=== PATIENT | female | born 1965 | race Two or more races ===

== ENCOUNTER → 2019-11-30 09:26 | Outpatient (BNVA) | payer OTHER, SELFPAY | PROVIDERS: PCP Internal Medicine; Visit Provider Student in an Organized Health Care Education/Training Program | DX: M79.7 Fibromyalgia (principal); M67.472 Ganglion, left ankle and foot; Z79.899 Other long term (current) drug therapy | CPT/HCPCS: 99213 ==

== ENCOUNTER 2020-08-07 10:06 | Outpatient (REF) | payer OTHER, SELFPAY ==
[2020-08-07 11:02] LABS: MANUAL DIFF FLAG NO
[2020-08-07 11:09] LABS: Basophils Percent Auto 0.2 % (0-2); Eosinophils Absolute Auto 0.2 X10*3/uL (0.0-0.4); Hematocrit 39.5 % (37-47); Hemoglobin 13.2 g/dl (12.0-16.0); Imm Gran Abs Auto 0.02 X10*3/uL (0.00-0.03); Imm Gran Pct Auto 0.4 % (0.0-0.4); Lymphocytes Percent Auto 20.1 % (20-40); Mean Corpuscular HGB Conc 33.4 g/dl (31.0-35.0); Mean Corpuscular Hemoglobin 29.9 pg (27.0-33.0); Mean Corpuscular Volume 89.4 fL (80-98); Mean Platelet Volume 12.2 fL (9.4-12.3); Monocytes Absolute Auto 0.4 X10*3/uL (0.1-1.2); Monocytes Percent Auto 8.9 % (2-11); Neutrophils Absolute Auto 3.2 X10*3/uL (2.0-8.3); Neutrophils Percent Auto 65.4 % (45-73); Platelet Count 207 X10*3/uL (160-400); Red Blood Count 4.42 X10*6/uL (4.20-5.50); White Blood Count 4.8 X10*3/uL (4.8-10.8)
[2020-08-07 11:26] LABS: Glucose Urine UA NEG (NEG); Leukocyte Esterase Urine NEG (NEG); Nitrite Urine NEG (NEG); Urine Blood NEG (NEG); Urine Ketones NEG (NEG); Urine Protein NEG (NEG-TRACE)
[2020-08-07 11:29] LABS: Appearance Urine CLEAR; Color Urine YELLOW
[2020-08-07 11:45] LABS: Alanine Aminotransferase 17 U/L (0-31); Albumin Level 4.4 g/dL (3.5-5.0); Alkaline Phosphatase 52 U/L (39-117); Anion Gap 8 (12-20); Aspartate Amino Transferase 17 U/L (5-31); Bilirubin Total 0.8 mg/dL (0.0-1.0); Blood Urea Nitrogen 14 mg/dL (9-16); Calcium 9.9 mg/dL (8.4-10.2); Carbon Dioxide 31 mmol/L (22-29); Chloride 106 mmol/L (96-108); Cholesterol 191 mg/dL; Estimated Glomerular Filt Rate > 60; Glucose Fasting 93 mg/dL (60-99); HDL Cholesterol 45 mg/dL; LDL Cholesterol Calculated 128 mg/dl; Potassium 4.3 mmol/L (3.3-5.1); Sodium 141 mmol/L (135-145); Total Protein 6.8 g/dL (6.5-8.0); Triglycerides 94 mg/dL
[2020-08-07 11:49] LABS: TSH reflex Free T4 2.94 uIU/mL (0.32-4.0); Vitamin D 25-OH Total 56.5 ng/mL (>30)
== END 2020-08-07 10:07 | disposition home or self-care (01) ==
LOC: HO.LAB 10:06
PROVIDERS: PCP Internal Medicine; Visit Provider Internal Medicine
DX: M79.7 Fibromyalgia (principal); E78.00 Pure hypercholesterolemia, unspecified; E66.9 Obesity, unspecified; M51.36 Other intervertebral disc degeneration, lumbar region; E55.9 Vitamin D deficiency, unspecified
CPT/HCPCS: 36415; 80053; 80061; 81003; 82306; 84443; 85025

== ENCOUNTER 2020-11-05 12:22 | Outpatient (REF) | payer OTHER, SELFPAY ==
--- NOTE | ~2020-11-05 | XR_ITS ---
EXAMINATION: XR HAND, LEFT CLINICAL INFORMATION: Osteoarthritis COMPARISON: Previous x-ray November 2018 TECHNIQUE: PA, lateral, and oblique views of the left hand. FINDINGS: Bone alignment is normal. No fracture or dislocation is seen. There is arthritis at the first LONGTERM joint and second and fourth DIP joints with joint space narrowing and osteophyte formation. Soft tissues are unremarkable. XR/XR hand LT min 3V IMPRESSION: Arthritis of the first LONGTERM and DIP joints.
== END 2020-11-05 12:23 | disposition home or self-care (01) ==
LOC: HO.XRAY 12:22
PROVIDERS: PCP Internal Medicine; Referring Provider Internal Medicine; Visit Provider Nurse Practitioner Family
DX: M79.642 Pain in left hand (principal); M79.7 Fibromyalgia; M19.90 Unspecified osteoarthritis, unspecified site
CPT/HCPCS: 73130; 99212

== ENCOUNTER 2020-11-26 09:53 | Outpatient (REF) | payer OTHER, SELFPAY ==
[2020-11-26 10:46] LABS: Basophils Percent Auto 0.2 % (0-2); Eosinophils Absolute Auto 0.2 X10*3/uL (0.0-0.4); Hematocrit 38.9 % (37-47); Hemoglobin 13.3 g/dl (12.0-16.0); Imm Gran Abs Auto 0.01 X10*3/uL (0.00-0.03); Imm Gran Pct Auto 0.2 % (0.0-0.4); Lymphocytes Absolute Auto 0.8 X10*3/uL (1.2-4.9); Lymphocytes Percent Auto 17.9 % (20-40); MANUAL DIFF FLAG NO; Mean Corpuscular HGB Conc 34.2 g/dl (31.0-35.0); Mean Corpuscular Hemoglobin 30.5 pg (27.0-33.0); Mean Corpuscular Volume 89.2 fL (80-98); Mean Platelet Volume 12.4 fL (9.4-12.3); Monocytes Absolute Auto 0.4 X10*3/uL (0.1-1.2); Monocytes Percent Auto 9.6 % (2-11); Neutrophils Percent Auto 68.1 % (45-73); Platelet Count 183 X10*3/uL (160-400); Red Blood Count 4.36 X10*6/uL (4.20-5.50); Red Cell Distribution Width 12.1 % (11.0-16.0); White Blood Count 4.5 X10*3/uL (4.8-10.8)
[2020-11-26 11:36] LABS: Erythrocyte Sedimentation Rate 3 MM/HR (0-20)
[2020-11-26 11:39] LABS: Appearance Urine HAZY; Color Urine YELLOW; Glucose Urine UA NEG (NEG); Leukocyte Esterase Urine NEG (NEG); Nitrite Urine NEG (NEG); Urine Blood NEG (NEG); Urine Ketones NEG (NEG); Urine Protein NEG (NEG-TRACE)
[2020-11-26 13:28] LABS: Alanine Aminotransferase 23 U/L (0-31); Albumin Level 4.3 g/dL (3.5-5.0); Alkaline Phosphatase 54 U/L (39-117); Anion Gap 12 (12-20); Aspartate Amino Transferase 19 U/L (5-31); Bilirubin Total 0.8 mg/dL (0.0-1.0); Blood Urea Nitrogen 13 mg/dL (9-16); Calcium 9.6 mg/dL (8.4-10.2); Carbon Dioxide 27 mmol/L (22-29); Chloride 105 mmol/L (96-108); Cholesterol 149 mg/dL; Estimated Glomerular Filt Rate > 60; Glucose Fasting 95 mg/dL (60-99); HDL Cholesterol 48 mg/dL; LDL Cholesterol Calculated 85 mg/dl; Potassium 4.3 mmol/L (3.3-5.1); Sodium 140 mmol/L (135-145); Total Protein 6.7 g/dL (6.5-8.0); Triglycerides 81 mg/dL
[2020-11-26 13:49] LABS: TSH reflex Free T4 5.09 uIU/mL (0.32-4.0); Vitamin D 25-OH Total 61.2 ng/mL (>30)
[2020-11-26 14:28] LABS: Free T4 (Free Thyroxine) 0.75 ng/dL (0.71-1.85)
== END 2020-11-26 09:54 | disposition home or self-care (01) ==
LOC: HO.LAB 09:53
PROVIDERS: PCP Internal Medicine; Visit Provider Internal Medicine
DX: M79.7 Fibromyalgia (principal); E55.9 Vitamin D deficiency, unspecified; E66.9 Obesity, unspecified; M19.91 Primary osteoarthritis, unspecified site; M51.36 Other intervertebral disc degeneration, lumbar region; E78.00 Pure hypercholesterolemia, unspecified
CPT/HCPCS: 36415; 80053; 80061; 81003; 82306; 84439; 84443; 85025; 85652

== ENCOUNTER → 2020-11-28 09:08 | Outpatient (BNVA) | payer OTHER, SELFPAY | PROVIDERS: PCP Internal Medicine; Visit Provider Physician Assistant | DX: M18.12 Unilateral primary osteoarthritis of first carpometacarpal joint, left hand (principal) | CPT/HCPCS: 20600; 99202; J1020 ==

== ENCOUNTER 2021-05-22 10:23 | Outpatient (REF) | payer OTHER, SELFPAY ==
[2021-05-22 10:48] LABS: MANUAL DIFF FLAG NO
[2021-05-22 10:58] LABS: Basophils Percent Auto 0.2 % (0-2); Eosinophils Absolute Auto 0.2 X10*3/uL (0.0-0.4); Eosinophils Percent Auto 3.4 % (0-4); Hematocrit 40.4 % (37.0-47.0); Hemoglobin 13.3 g/dl (12.0-16.0); Imm Gran Abs Auto 0.01 X10*3/uL (0.00-0.03); Imm Gran Pct Auto 0.2 % (0.0-0.4); Lymphocytes Absolute Auto 0.8 X10*3/uL (1.2-4.9); Lymphocytes Percent Auto 18.8 % (20-40); Mean Corpuscular HGB Conc 32.9 g/dl (31.0-35.0); Mean Corpuscular Hemoglobin 29.8 pg (27.0-33.0); Mean Corpuscular Volume 90.6 fL (80.0-98.0); Mean Platelet Volume 11.9 fL (9.4-12.3); Monocytes Absolute Auto 0.5 X10*3/uL (0.1-1.2); Monocytes Percent Auto 10.6 % (2-11); Neutrophils Absolute Auto 2.9 x10*3/uL (2.0-8.3); Neutrophils Percent Auto 66.8 % (45-73); Platelet Count 196 X10*3/uL (160-400); Red Blood Count 4.46 X10*6/uL (4.20-5.50); Red Cell Distribution Width 11.9 % (11.0-16.0); White Blood Count 4.4 X10*3/uL (4.8-10.8)
[2021-05-22 11:39] LABS: Estimated Average Glucose 117 mg/dL; Hemoglobin A1c % 5.7 %
[2021-05-22 11:42] LABS: Erythrocyte Sedimentation Rate 6 MM/HR (0-20)
[2021-05-22 12:16] LABS: TSH reflex Free T4 2.93 uIU/mL (0.32-4.0); Vitamin D 25-OH Total 61.2 ng/mL (>30)
[2021-05-22 12:29] LABS: Alanine Aminotransferase 22 U/L (0-31); Albumin Level 4.3 g/dL (3.5-5.0); Alkaline Phosphatase 52 U/L (39-117); Anion Gap 10 (12-20); Aspartate Amino Transferase 17 U/L (5-31); Bilirubin Total 0.9 mg/dL (0.0-1.0); Blood Urea Nitrogen 11 mg/dL (9-16); Calcium 9.8 mg/dL (8.4-10.2); Carbon Dioxide 31 mmol/L (22-29); Chloride 106 mmol/L (96-108); Cholesterol 143 mg/dL; Estimated Glomerular Filt Rate > 60; Glucose Fasting 103 mg/dL (60-99); HDL Cholesterol 44 mg/dL; LDL Cholesterol Calculated 84 mg/dl; Potassium 4.6 mmol/L (3.3-5.1); Sodium 142 mmol/L (135-145); Total Protein 6.7 g/dL (6.5-8.0); Triglycerides 79 mg/dL
[2021-05-22 12:35] LABS: Appearance Urine CLEAR; Color Urine YELLOW; Glucose Urine UA NEG (NEG); Leukocyte Esterase Urine NEG (NEG); Nitrite Urine NEG (NEG); PH 8.5 (5.0-8.0); Specific Gravity - Urine 1.015 (1.005-1.025); Urine Blood NEG (NEG); Urine Ketones NEG (NEG); Urine Protein NEG (NEG-TRACE)
== END 2021-05-22 10:24 | disposition home or self-care (01) ==
LOC: HO.LAB 10:23
PROVIDERS: PCP Internal Medicine; Visit Provider Internal Medicine
DX: I10 Essential (primary) hypertension (principal); E78.00 Pure hypercholesterolemia, unspecified; M79.7 Fibromyalgia; R73.01 Impaired fasting glucose; E55.9 Vitamin D deficiency, unspecified
CPT/HCPCS: 36415; 80053; 80061; 81003; 82306; 83036; 84443; 85025; 85652

== ENCOUNTER 2021-08-28 14:42 | Outpatient (REF) | payer OTHER, SELFPAY ==
--- NOTE | ~2021-08-28 | XR_ITS ---
EXAMINATION: XR KNEE, LEFT CLINICAL INFORMATION: M25.562 - Pain in left knee COMPARISON: Radiographs left knee 10/22/2013. TECHNIQUE: Four views of the left knee. FINDINGS: No fracture, dislocation, or suprapatellar effusion. Hoffa's fat pad appears normal. No destructive process or periostitis. There is interval osteophyte medial femoral condyle and medial tibial plateau. Trace mineralization is present in region of proximal medial collateral ligament suggesting remote injury. There is no interval joint compartment narrowing or erosive change or chondrocalcinosis. Again, there is borderline narrowing medial compartment. No lateralization or tilting patella. There is spurring at the quadriceps insertion patella and mild spurring origin patellar tendon. XR/XR knee LT 4V IMPRESSION: -Osteophytes medial femoral condyle and medial tibial plateau. -Borderline narrowing medial compartment. No effusion. -Trace mineralization at proximal MCL likely related to remote injury. -Spurring quadriceps insertion patella and origin patellar tendon.
[2021-08-28 14:52] LABS: MANUAL DIFF FLAG NO
[2021-08-28 15:12] LABS: Basophils Percent Auto 0.1 % (0-2); Eosinophils Absolute Auto 0.2 X10*3/uL (0.0-0.4); Eosinophils Percent Auto 2.7 % (0-4); Hematocrit 39.9 % (37.0-47.0); Hemoglobin 13.7 g/dl (12.0-16.0); Imm Gran Abs Auto 0.02 X10*3/uL (0.00-0.03); Imm Gran Pct Auto 0.3 % (0.0-0.4); Lymphocytes Absolute Auto 1.1 X10*3/uL (1.2-4.9); Lymphocytes Percent Auto 15.4 % (20-40); Mean Corpuscular HGB Conc 34.3 g/dl (31.0-35.0); Mean Corpuscular Volume 87.3 fL (80.0-98.0); Mean Platelet Volume 11.7 fL (9.4-12.3); Monocytes Absolute Auto 0.6 X10*3/uL (0.1-1.2); Monocytes Percent Auto 7.8 % (2-11); Neutrophils Absolute Auto 5.4 x10*3/uL (2.0-8.3); Neutrophils Percent Auto 73.7 % (45-73); Platelet Count 212 X10*3/uL (160-400); Red Blood Count 4.57 X10*6/uL (4.20-5.50); Red Cell Distribution Width 12.2 % (11.0-16.0); White Blood Count 7.3 X10*3/uL (4.8-10.8)
[2021-08-28 15:49] LABS: Alanine Aminotransferase 20 U/L (0-31); Albumin Level 4.7 g/dL (3.5-5.0); Alkaline Phosphatase 61 U/L (39-117); Anion Gap 13 (12-20); Aspartate Amino Transferase 18 U/L (5-31); Bilirubin Total 0.7 mg/dL (0.0-1.0); Blood Urea Nitrogen 16 mg/dL (9-16); C Reactive Protein 0.36 mg/dL (< or = 0.50); Calcium 10.2 mg/dL (8.4-10.2); Carbon Dioxide 26 mmol/L (22-29); Chloride 110 mmol/L (96-108); Cholesterol 146 mg/dL; Estimated Glomerular Filt Rate > 60; Glucose Fasting 100 mg/dL (60-99); HDL Cholesterol 44 mg/dL; LDL Cholesterol Calculated 84 mg/dl; Potassium 4.3 mmol/L (3.3-5.1); Rheumatoid Factor 18.8 IU/mL (<15.0); Sodium 145 mmol/L (135-145); Total Protein 7.3 g/dL (6.5-8.0); Triglycerides 94 mg/dL
[2021-08-28 15:53] LABS: Erythrocyte Sedimentation Rate 6 MM/HR (0-20)
[2021-08-28 16:05] LABS: TSH reflex Free T4 2.57 uIU/mL (0.32-4.0)
[2021-08-28 16:10] LABS: Appearance Urine CLEAR; Color Urine YELLOW; Glucose Urine UA NEG (NEG); Leukocyte Esterase Urine NEG (NEG); Nitrite Urine NEG (NEG); Specific Gravity - Urine 1.025 (1.005-1.025); UACC Culture Trigger NO; Urine Blood TRACE (NEG); Urine Ketones NEG (NEG); Urine Protein NEG (NEG-TRACE)
[2021-08-28 16:19] LABS: Bacteria Urine TRACE /LPF; Calcium Oxalate Crystals Urine TRACE /LPF; Mucus Urine 2+ /LPF; Squamous Epithelial Cell Urine 1+ /LPF; WBC Urine 0-2 /HPF (0-4)
[2021-09-01 08:51] LABS: Anti Nuclear Antibody Screen NEGATIVE (NEGATIVE)
[2021-09-04 14:06] LABS: Cyclic Citrullinated Peptide <16 UNITS
== END 2021-08-28 14:43 | disposition home or self-care (01) ==
LOC: HO.XRAY 14:42
PROVIDERS: PCP Internal Medicine; Visit Provider Internal Medicine
DX: M25.562 Pain in left knee (principal); M25.50 Pain in unspecified joint; E78.00 Pure hypercholesterolemia, unspecified
CPT/HCPCS: 36415; 73564; 80053; 80061; 81001; 84443; 84550; 85025; 85652; 86038; 86039; 86140; 86200; 86431

== ENCOUNTER 2021-12-18 09:39 | Outpatient (REF) | payer OTHER, SELFPAY ==
--- NOTE | ~2021-12-18 | XR_ITS ---
EXAMINATION: XR HAND, LEFT CLINICAL INFORMATION: Pain in left hand at first metacarpal COMPARISON: None TECHNIQUE: PA, lateral, and oblique views of the left hand. FINDINGS: No fracture or dislocation. Severe joint space narrowing, sclerosis, and osteophytosis at the first carpometacarpal joint. Moderate osteoarthritis of the second distal interphalangeal joint. XR/XR hand LT min 3V IMPRESSION: Severe first carpometacarpal osteoarthritis. Moderate osteoarthritis of the second distal interphalangeal joint.
== END 2021-12-18 09:40 | disposition home or self-care (01) ==
LOC: HO.XRAY 09:39
PROVIDERS: PCP Internal Medicine; Visit Provider Nurse Practitioner Family
DX: M18.12 Unilateral primary osteoarthritis of first carpometacarpal joint, left hand (principal); M79.7 Fibromyalgia; Z79.899 Other long term (current) drug therapy
CPT/HCPCS: 73130; 99212

== ENCOUNTER → 2022-01-13 10:54 | Outpatient (BNVA) | payer OTHER, SELFPAY | PROVIDERS: PCP Internal Medicine; Visit Provider Physician Assistant | DX: M18.12 Unilateral primary osteoarthritis of first carpometacarpal joint, left hand (principal) | CPT/HCPCS: 99212 ==

== ENCOUNTER → 2022-02-09 13:31 | Outpatient (BNVA) | payer OTHER, SELFPAY | PROVIDERS: PCP Internal Medicine; Visit Provider Orthopaedic Surgery | DX: M18.12 Unilateral primary osteoarthritis of first carpometacarpal joint, left hand (principal) | CPT/HCPCS: 20600; 99212; J1020 ==

== ENCOUNTER 2022-03-08 10:38 | Outpatient (REF) | payer OTHER, SELFPAY ==
[2022-03-08 10:57] LABS: MANUAL DIFF FLAG NO
[2022-03-08 11:54] LABS: Basophils Percent Auto 0.2 % (0-2); Eosinophils Absolute Auto 0.2 X10*3/uL (0.0-0.4); Eosinophils Percent Auto 3.3 % (0-4); Hematocrit 40.2 % (37.0-47.0); Hemoglobin 13.5 g/dl (12.0-16.0); Imm Gran Abs Auto 0.01 X10*3/uL (0.00-0.03); Imm Gran Pct Auto 0.2 % (0.0-0.4); Lymphocytes Absolute Auto 0.8 X10*3/uL (1.2-4.9); Lymphocytes Percent Auto 18.3 % (20-40); Mean Corpuscular HGB Conc 33.6 g/dl (31.0-35.0); Mean Corpuscular Hemoglobin 30.3 pg (27.0-33.0); Mean Corpuscular Volume 90.1 fL (80.0-98.0); Mean Platelet Volume 12.6 fL (9.4-12.3); Monocytes Absolute Auto 0.4 X10*3/uL (0.1-1.2); Monocytes Percent Auto 8.9 % (2-11); Neutrophils Absolute Auto 3.1 x10*3/uL (2.0-8.3); Neutrophils Percent Auto 69.1 % (45-73); Platelet Count 217 X10*3/uL (160-400); Red Blood Count 4.46 X10*6/uL (4.20-5.50); Red Cell Distribution Width 11.8 % (11.0-16.0); White Blood Count 4.5 X10*3/uL (4.8-10.8)
[2022-03-08 12:28] LABS: Alanine Aminotransferase 24 U/L (0-31); Albumin Level 4.5 g/dL (3.5-5.0); Alkaline Phosphatase 56 U/L (39-117); Anion Gap 12 (12-20); Aspartate Amino Transferase 20 U/L (5-31); Bilirubin Total 0.8 mg/dL (0.0-1.0); Blood Urea Nitrogen 15 mg/dL (9-16); Calcium 10.4 mg/dL (8.4-10.2); Carbon Dioxide 29 mmol/L (22-29); Chloride 105 mmol/L (96-108); Cholesterol 133 mg/dL; Estimated Glomerular Filt Rate > 60; Glucose Fasting 89 mg/dL (60-99); HDL Cholesterol 45 mg/dL; LDL Cholesterol Calculated 77 mg/dl; Potassium 4.6 mmol/L (3.3-5.1); Sodium 141 mmol/L (135-145); Total Protein 6.9 g/dL (6.5-8.0); Triglycerides 56 mg/dL
[2022-03-08 12:44] LABS: TSH reflex Free T4 3.09 uIU/mL (0.32-4.0); Vitamin D 25-OH Total 38.6 ng/mL (>30)
== END 2022-03-08 10:39 | disposition home or self-care (01) ==
LOC: HO.LAB 10:38
PROVIDERS: PCP Internal Medicine; Visit Provider Internal Medicine
DX: E78.00 Pure hypercholesterolemia, unspecified (principal); M79.7 Fibromyalgia; E55.9 Vitamin D deficiency, unspecified
CPT/HCPCS: 36415; 80053; 80061; 82306; 84443; 85025

== ENCOUNTER 2022-08-30 08:28 | Outpatient (REF) | payer OTHER, SELFPAY ==
[2022-08-30 08:38] LABS: MANUAL DIFF FLAG NO
[2022-08-30 09:07] LABS: Basophils Percent Auto 0.4 % (0-2); Eosinophils Absolute Auto 0.3 X10*3/uL (0.0-0.4); Eosinophils Percent Auto 4.4 % (0-4); Hematocrit 41.4 % (37.0-47.0); Hemoglobin 13.9 g/dl (12.0-16.0); Imm Gran Abs Auto 0.02 X10*3/uL (0.00-0.03); Imm Gran Pct Auto 0.4 % (0.0-0.4); Lymphocytes Percent Auto 17.8 % (20-40); Mean Corpuscular HGB Conc 33.6 g/dl (31.0-35.0); Mean Corpuscular Hemoglobin 30.3 pg (27.0-33.0); Mean Corpuscular Volume 90.2 fL (80.0-98.0); Mean Platelet Volume 12.2 fL (9.4-12.3); Monocytes Absolute Auto 0.5 X10*3/uL (0.1-1.2); Neutrophils Absolute Auto 3.9 x10*3/uL (2.0-8.3); Platelet Count 225 X10*3/uL (160-400); Red Blood Count 4.59 X10*6/uL (4.20-5.50); Red Cell Distribution Width 12.5 % (11.0-16.0); White Blood Count 5.7 X10*3/uL (4.8-10.8)
== END 2022-08-30 08:29 | disposition home or self-care (01) ==
LOC: HO.LAB 08:28
PROVIDERS: PCP Internal Medicine; Visit Provider Internal Medicine
DX: E78.00 Pure hypercholesterolemia, unspecified (principal); I10 Essential (primary) hypertension
CPT/HCPCS: 36415; 80053; 80061; 85025

== ENCOUNTER 2022-09-23 10:31 | Outpatient (AMB) | payer OTHER, SELFPAY ==
--- NOTE | 2022-09-23 10:34 | MHC.OFFVIS ---
Intake Vital Signs 09/23/22 10:39 Height 5 ft 8 in Weight 242 lb 6 oz BMI 36.8 BP 112/78 Blood Pressure Location Lt brachial Position Sitting Pulse 68 Pulse Source Pulse Oximeter Pulse Oximetry (%) 96 Oxygen Delivery Method Room Air Intake Visit Reasons: INP-Fatigue/Somnolence - Confirmed thru clearwave Intake Note: NPV for Fatigue Superintendent Local Required: Yes Allergies No Known Allergies [No Known Allergies*] Allergy (Verified 09/23/22 10:36) HPI HPI Comments History of Present Illness Details 57 y/o female patient presents for new in-person visit for sleep consultation. Pt reports snoring and gasping arousals and daytime sleepiness. She feels always tired, sleepy and yawing a lot. She can easily falling asleep during conversations. Pt goes to bed at midnight, and sleeps 5-6 hours. She has difficulty falling asleep at night and having frequent arousals. Sleep questionnaire: Have you ever been diagnosed with a sleep disorder? No. Have you ever had a sleep study in the past? No. Have you ever been treated for a sleep disorder? No. Do you take medications for a sleep disorder? No. Do you snore? Yes. Do you wake up gasping at night? Yes. Do you have episodes of apneas? No. If yes, are they witnessed? No. Do you have episodes of nocturnal chest pain or dyspnea? Yes, having palapitation at night. Do you have difficulty initiating sleep? Yes. Do you have difficulty maintaining sleep? Yes. Do you wake up tired? Yes. Do you have headaches upon awakening? Yes, sometimes. Do you wake up with dry mouth or throat? Yes. Do you have GERD? Yes, sometimes. Do you have nocturia? Yes, 4-5 times. Do you have nocturnal leg cramps? Yes. Do you have symptoms of restless legs? Yes. Do you act out your dreams? No. Sleep hygiene questionnaire: What is your usual sleep routine? Usual bedtime is at 12 am; Usual wake up time is at 5-6 am. Do you take naps? No. Is your sleep environment cool, dark, and quiet? Yes. Do you exercise? No. Do you take caffeine or other stimulants? 1 cup of coffee in the morning. Do you use electronics in bed? Yes. What is your work schedule? N/A. Hypersomnolence questionnaire: Do you have daytime tiredness or fatigue? Yes. Do you easily fall asleep when inactive? Yes. Have you ever had episodes of sudden weakness? Have you ever had episodes of sudden weakness associated with strong emotions? PFSH Medical History Fibromyalgia Lumbar degenerative disc disease Obesity (BMI 30-39.9) Osteoarthritis Pure hypercholesterolemia Urinary incontinence Vitamin D deficiency Surgical History H/O LEEP History of tubal ligation Hx of varicose veins Family History Father Medical history unknown Mother Stroke Diabetes Hypertension CVD (cardiovascular disease) Brother Substance abuse Maternal Uncle Throat cancer Social History (Updated 09/23/22 @ 10:39 by Phyllis Bui CMA) Household Members: None Housing: Apartment Are you a primary health care / medical job titles to a significant other at home: No Do you presently have visiting nurse or other home services: No 75 years or older and lives alone: No Alcohol intake: never Patient Tobacco Use Status: Never used Tobacco e-Cigarette/Vaping Use: Never Used Second Hand Smoke Exposure: No service: No Current occupational status: disabled Current occupational exposures/hazards: No Cognitive needs: No Hearing needs: No Vision needs: Yes Review of Systems ENT Reports Normal hearing present Neuro Reports Normal hearing present Physical Exam Vital Signs: Last Vital Signs Pulse 68 09/23/22 10:39 BP 112/78 09/23/22 10:39 Pulse Ox 96 09/23/22 10:39 Oxygen Delivery Method Room Air 09/23/22 10:39 BMI result Body Mass Index 36.8 Const General: cooperative Nutritional Appearance: obese Orientation/consciousness: patient oriented x3 HEENT Throat: Yes other (mallampati grade 4) Neck Neck: Yes full ROM and Yes supple Resp Effort & Inspection: normal respiratory effort and able to speak in complete sentences Neuro General: patient oriented x3 and gait normal Cranial nerves: Yes Bilaterally intact EOM present, Yes Normal facial strength present, Yes Midline tongue present, Yes Symmetric palate elevation present, Yes Normal hearing present, Yes Ability to bilaterally rotate head present and Yes Ability to bilaterally elevate shoulders present Cognition (Neuro): normal cognition Gait exam (Neuro): Normal gait present Motor exam (neuro): 5/5 motor strength present throughout, Pronator motor function not present and no tremor noted Psych Appearance: grossly normal Mental Status: mental status grossly normal Speech and movement: Normal speech and movement present Affect: normal affect Attitude: cooperative Assessment & Plan Assessment & Plan (1) Muscle spasm of both lower legs: Code(s): M62.838 - Other muscle spasm (2) Snoring: Code(s): R06.83 - Snoring (3) Daytime somnolence: Code(s): R40.0 - Somnolence Plan Pt is advised to undergo home sleep study to assess for sleep apnea. Will f/u with pt after study to discuss results and appropriate treatment options. Sleep hygiene education provided. Advised patient to try magnesium 400 mg qHS for legs muscle spasm. Pt to call with any worsening concerns or questions. Orders: Orders RT home sleep study Today R06.83 - Snoring, R40.0 - Somnolence, R53.83 - Other fatigue Medications: New magnesium oxide 400 mg PO DAILY 30 days 30 tabs 3RF Coding Level of Care Code New Pt Level 4 (28179) Diagnoses Muscle spasm of both lower legs M62.838 Snoring R06.83 Daytime somnolence R40.0
[2022-09-23 10:39] VITALS: BP 112/78; PULSE 68; O2SAT 96; BMI 36.8
== END 2022-09-23 11:07 | disposition home or self-care (01) ==
PROVIDERS: Visit Provider Nurse Practitioner Family
DX: M62.838 Other muscle spasm (principal); R06.83 Snoring; R40.0 Somnolence
CPT/HCPCS: 99204

== ENCOUNTER → 2022-09-23 10:31 | Outpatient (BNVA) | payer OTHER, SELFPAY | PROVIDERS: Visit Provider Nurse Practitioner Family | DX: M62.838 Other muscle spasm (principal); R06.83 Snoring; R40.0 Somnolence | CPT/HCPCS: 99202 ==

== ENCOUNTER 2022-10-06 13:36 | Outpatient (AMB) | payer OTHER, SELFPAY ==
[2022-10-06 13:41] VITALS: BP 134/80; PULSE 77; O2SAT 95; BMI 36.5
--- NOTE | 2022-10-06 13:41 | MHC.PC.OV ---
Vital Signs 10/06/22 13:41 Height 5 ft 8 in Weight 240 lb 6 oz BMI 36.5 BP 134/80 Blood Pressure Location Lt brachial Position Sitting Pulse 77 Pulse Source Pulse Oximeter Pulse Oximetry (%) 95 Oxygen Delivery Method Room Air Intake Visit Reasons: hyperlipidemia Chef Passenger Vessel Required: No Accompanied by: Self / Same As Patient Allergies No Known Allergies [No Known Allergies*] Allergy (Verified 10/06/22 14:17) Medication List - Last Reconciled 10/06/22 by Charlie Ty MD atorvastatin 20 mg PO DAILY 90 days calcium citrate-vitamin D3 315 mg-6.25 mcg (250 unit) (Citracal + Vitamin D Maximum) 1 tab PO DAILY cholecalciferol (vitamin D3) 1,250 mcg PO QWEEK clobetasol 0.05% 1 appl topical BID [CONTOUR Memory Foam Leg Pillow As directed] diclofenac sodium 1% (Voltaren Arthritis Pain) 2 grams topical QID PRN 30 days duloxetine 30 mg PO .qhs duloxetine (Cymbalta) 60 mg PO QAM gabapentin 400 mg PO BID ibuprofen 800 mg PO TID PRN [INCONTINENCE PADS Use 4 to 5 pads a day as directed] magnesium oxide 400 mg PO DAILY 30 days polyethylene glycol 3350 (Miralax) 17 grams PO DAILY tizanidine 4 mg PO Q8H PRN Tobacco use date assessed: 10/06/22 Dental Screening Dental Screen Date: 10/06/22 Did you have a dental visit in the last 12 months?: Yes Did you have a dental problem in the last 6 months where you did not have access to dental care?: No Was dental information given to patient?: Patient has dentist HPI hyperlipidemia HPI Details Patient comes in today for her follow up visit States that she feels okay She denies any headaches or dizziness Denies any chest pains, no SOB No nausea/vomiting, no abdominal pain No change in bowel habits noted Still has frequent joint pains and myalgias - states that she has her aches and pains everyday but is able to manage them and that her Rx help keep them from getting unbearable Was seen by sleep medicine last month and states that she is scheduled to have a home sleep study done sometime next month to assess for sleep apnea Adds that she has been having a hard time getting the skin of her heels to clear up - states that the skin over her heels are always very dry and tends to form painful cracks and fissures often, especially in the winter Would like to see a specialist to have them help get her heels to clear up and heal up EFRAÍN Had her follow up labs done last month - to discuss her results [facility] Medical History Fibromyalgia Lumbar degenerative disc disease Obesity (BMI 30-39.9) Osteoarthritis Pure hypercholesterolemia Urinary incontinence Vitamin D deficiency Surgical History H/O LEEP History of tubal ligation Hx of varicose veins Family History Father Medical history unknown Mother Stroke Diabetes Hypertension CVD (cardiovascular disease) Brother Substance abuse Maternal Uncle Throat cancer Social History Household Members: None Housing: Apartment Are you a primary personal caregiver to a significant other at home: No Do you presently have visiting nurse or other home services: No 75 years or older and lives alone: No Alcohol intake: never Patient Tobacco Use Status: Never used Tobacco e-Cigarette/Vaping Use: Never Used Second Hand Smoke Exposure: No service: No Current occupational status: disabled Current occupational exposures/hazards: No Cognitive needs: No Hearing needs: No Vision needs: Yes Questionnaire PHQ-9 Over the last 2 weeks, how often have you been bothered by any of the following problems? 1. Little interest or pleasure in doing things: not at all 2. Feeling down, depressed, or hopeless: not at all 3. Trouble falling or staying asleep, or sleeping too much: not at all 4. Feeling tired or having little energy: not at all 5. Poor appetite or overeating: not at all 6. Feeling bad about yourself - or that you are a failure or have let yourself or your family down: not at all 7. Trouble concentrating on things, such as reading the newspaper or watching television: not at all 8. Moving or speaking so slowly that other people could have noticed. Or the opposite - being so fidgety or restless that you have been moving around a lot more than usual: not at all 9. Thoughts that you would be better off or of hurting yourself in some way: not at all Total score: 0 Depression Screening Interpretation: Negative 11819 - PHQ-9 Billing: Yes Source: Developed by Drs. Dax Armas, Jovita Ozuna, Alex Aceves and colleagues, with an educational roscoe from [employer]. Thrive Questionnaire Date Thrive assessed: 10/06/22 I am a: Patient What is your living situation today?: I have a steady place to live Within the past 12 months, did the food you bought not last and you didn't have the money to get more?: Never true Within the past 12 months, did you worry whether your food would run out before you got money to buy more?: Never true Do you have trouble paying for medicines?: No Do you have trouble getting transportation to medical appointments?: No Do you have trouble paying your heating and electricity bill?: No Do you have trouble taking care of your child, family member or friend?: No Do you have trouble with day-to-day activities such as bathing, preparing meals, shopping, managing finances, etc.?: No Are you currently unemployed and looking for a job?: No Are you interested in more education?: No Please select the resources that you would like help with: None Currently or been in a relationship where the following occur: no concerns reported AUDIT C Alcohol Use Questionnaire (AUDIT-C) 1. How often do you have a drink containing alcohol?: Never 3. How often do you have six or more drinks on one occasion?: Never Total Score: 0 Score Reviewed/Action Taken: Yes CAM-7 AMB Questionnaire CAM-7 Date CAM - 7 assessed: 10/06/22 Feeling nervous, anxious, or on edge: 0 = Not at all Not being able to stop or control worryin = Not at all Worrying too much about different things: 0 = Not at all Trouble relaxin = Not at all Being so restless that it is hard to sit still: 0 = Not at all Becoming easily annoyed or irritable: 0 = Not at all Feeling afraid as if something awful might happen: 0 = Not at all Total CAM-7 score (0-4 normal; 5-9 mild; 10-14 moderate; 15-21 severe): 0 Source: Developed by Drs. Dax Armas, Jovita Ozuna, Alex Aceves and colleagues, with an educational roscoe from [employer]. Review of Systems Const Denies chills, Reports daytime sleepiness, Reports fatigue, Denies fever(s) and Denies headache(s) ENT Denies dysphagia, Denies dizziness, Denies otalgia, Denies headache(s), Denies neck pain, Denies odynophagia and Denies sore throat Card Denies chest pain, Denies palpitations and Denies dyspnea Resp Denies cough and Denies dyspnea GI Denies abdominal pain, Denies constipation, Denies dysphagia, Denies heartburn, Denies diarrhea, Denies nausea, Denies odynophagia and Denies vomiting Reports nocturia, Denies dysuria and Reports urinary incontinence Musc Reports myalgias (recurrent, especially behind both shoulders), Reports arthralgias (on and off involving multiple joints, including left knee), Denies neck pain and Reports stiffness Skin/Breast Details: (+) significantly thickened skin over the heels of both feet, with some painful cracks/fissures at present Neuro Denies dizziness and Denies headache(s) Psych Denies anxiety Endo Reports fatigue and Denies palpitations Ray/Lymph Denies easy bruising Physical exam (Primary Care) Vital Signs: Last Vital Signs Pulse 77 10/06/22 13:41 BP 134/80 10/06/22 13:41 Pulse Ox 95 10/06/22 13:41 Oxygen Delivery Method Room Air 10/06/22 13:41 BMI result Body Mass Index 36.5 Tobacco/Smoking Status: Tobacco use Status Tobacco use date assessed 10/06/22 10/06/22 13:48 Patient Tobacco Use Status Never used Tobacco 10/06/22 13:48 e-Cigarette/Vaping Use Never Used 10/06/22 13:48 PHQ-9: PHQ-9 Score PHQ-9: Total score 0 10/06/22 13:48 Depression Screening Interpretation: Negative Thrive Assessment: Date of Thrive Assessment Date Thrive assessed 10/06/22 10/06/22 13:48 Currently or been in a relationship where the following occur: no concerns reported Const General: no acute distress and alert HENMT Ears: TM's normal bilaterally and EAC's normal Throat: Yes posterior oropharynx normal and Yes tonsils normal (no TP congestion noted) Neck Neck: Yes no lymphadenopathy and Yes tender (over the cervical spine and paraspinal areas bilaterally) Thyroid: Thyroid normal Resp Auscultation: clear to auscultation bilaterally, no rales and no wheezes Cardio Rate: regular rate Rhythm: regular rhythm Heart sounds: no murmurs GI Palpation (GI): Soft to palpation and nontender Auscultation: normal bowel sounds Back/Spine/Pelvis Cervical Spine: cervical muscular tenderness Thoracic/Lumbar Spine: paraspinal muscle tenderness bilaterally (over the cervical and thoracolumbar spine (diffuse)) and lumbar spinal tenderness Skin Other: (+) thickened patch of skin over the heels of both feet, with (+) painful skin fissures / cracks on the heel areas Rashes: no rashes Neuro General: no focal motor deficits Extrem General: Yes no clubbing, cyanosis or edema Right upper extremity: shoulder/upper arm Details: tenderness (diffusely over the scapular area) Left upper extremity: shoulder/upper arm Details: tenderness (diffusely over the scapular areas) Left lower extremity: knee Details: tenderness Results Reviewed Results Reviewed: Laboratory Tests 08/30/22 08/30/22 08:37 08:37 WBC 5.7 Hgb 13.9 Hct 41.4 Plt Count 225 Sodium 143 Potassium 4.1 Creatinine 0.72 Estimated GFR > 60 Fasting Glucose 102 H Calcium 10.3 H AST 21 ALT 29 Triglycerides 83 Cholesterol 148 LDL Cholesterol, Calc 82 HDL Cholesterol 50 Assessment and Plan Assessment & Plan (1) Pure hypercholesterolemia: Code(s): E78.00 - Pure hypercholesterolemia, unspecified Plan: Results of her labs done last month reviewed and discussed with patient Reinforced low-cholesterol diet Continue Atorvastatin 10 mg QD Will recheck her labs in 4 months for follow-up (2) Lumbar degenerative disc disease: Code(s): M51.36 - Other intervertebral disc degeneration, lumbar region Plan: Reinforced activity and weight lifting restrictions Continue Gabapentin 400 mg BID and Tizanidine 4 mg Q 8 hours as needed (3) Polyarthralgia: Code(s): M25.50 - Pain in unspecified joint Plan: Mostly due to osteoarthritis Repeat x-rays of the left knee done in August 2021 confirmed (+) OA changes in her left knee Lab work ups done last year were negative for any inflammatory arthritis or condition Follow up with rheumatology as scheduled (4) Osteoarthritis: Code(s): M19.90 - Unspecified osteoarthritis, unspecified site Qualifiers: Osteoarthritis location: unspecified site Osteoarthritis type: primary Qualified Code(s): M19.91 - Primary osteoarthritis, unspecified site Plan: Continue Ibuprofen 800 mg 3 times a day as needed and Voltaren gel 1% apply 1 to 2 times a day as needed Patient also takes Tylenol 5 mg every 6-8 hours additionally as needed for increased pain (5) Fibromyalgia: Code(s): M79.7 - Fibromyalgia Plan: Patient is encouraged again to stay active and exercise regularly to help manage her fibromyalgia symptoms Continue Duloxetine 60 mg QD; is also on Gabapentin and Tizanidine to help manage her symptoms Follow up with rheumatology as scheduled (6) Daytime somnolence: Code(s): R40.0 - Somnolence Plan: She was referred to and seen by Sleep Medicine last month; is now scheduled for a home sleep study in October 2022 for further evaluation and to help r/o sleep apnea (7) Vitamin D deficiency: Code(s): E55.9 - Vitamin D deficiency, unspecified Plan: Continue Vitamin D2 54002 units once a week (8) Keratoderma of foot, acquired: Code(s): L85.1 - Acquired keratosis [keratoderma] palmaris et plantaris Plan: Will refer her to podiatry for further evaluation and management (9) Urinary incontinence: Code(s): R32 - Unspecified urinary incontinence Qualifiers: Urinary Incontinence type: unspecified incontinence Qualified Code(s): R32 - Unspecified urinary incontinence Plan: Uses incontinence pads PRN Follow up with urology as scheduled Patient again advised to try limiting her oral fluids after dinner and this may help lessen her need to wake up and go to the bathroom often in the middle of the night (10) Obesity (BMI 30-39.9): Code(s): E66.9 - Obesity, unspecified Plan: Reinforced diet/exercise as tolerated/lose weight Plan Follow up in 4 months Orders: Orders Comprehensive Sweetser. Panel Fast 4 Months E78.00 - Pure hypercholesterolemia, unspecified Lipid Panel 4 Months E78.00 - Pure hypercholesterolemia, unspecified TSH reflex Free T4 4 Months E78.00 - Pure hypercholesterolemia, unspecified Vitamin D 25-OH Total 4 Months E55.9 - Vitamin D deficiency, unspecified Complete Blood Count Auto Diff 4 Months I10 - Essential (primary) hypertension UA CC w/rflx Micro + Cult 4 Months R30.0 - Dysuria Referrals Podiatry Referral L85.1 - Acquired keratosis [keratoderma] palmaris et plantaris Coding Level of Care Code Est Pt Level 4 (50156) Diagnoses Pure hypercholesterolemia E78.00 Lumbar degenerative disc disease M51.36 Polyarthralgia M25.50 Osteoarthritis M19.91 Osteoarthritis location: unspecified site Osteoarthritis type: primary Fibromyalgia M79.7 Daytime somnolence R40.0 Vitamin D deficiency E55.9 Keratoderma of foot, acquired L85.1 Urinary incontinence R32 Urinary Incontinence type: unspecified incontinence Obesity (BMI 30-39.9) E66.9
== END 2022-10-06 14:33 | disposition home or self-care (01) ==
PROVIDERS: Visit Provider Internal Medicine
DX: E78.00 Pure hypercholesterolemia, unspecified (principal); M51.36 Other intervertebral disc degeneration, lumbar region; M25.50 Pain in unspecified joint; E55.9 Vitamin D deficiency, unspecified; M19.91 Primary osteoarthritis, unspecified site; M79.7 Fibromyalgia; R40.0 Somnolence; L85.1 Acquired keratosis [keratoderma] palmaris et plantaris; R32 Unspecified urinary incontinence; E66.9 Obesity, unspecified
CPT/HCPCS: 99214

== ENCOUNTER → 2022-11-29 12:18 | Outpatient (REF) | payer OTHER, SELFPAY | LOC: HO.SL 12:18 | PROVIDERS: PCP Internal Medicine; Visit Provider Nurse Practitioner Family | DX: G47.33 Obstructive sleep apnea (adult) (pediatric) (principal); R40.0 Somnolence; R53.83 Other fatigue; R06.83 Snoring | CPT/HCPCS: 95806 ==

== ENCOUNTER → 2022-11-29 13:39 | Outpatient (BNV) | payer OTHER, SELFPAY | PROVIDERS: PCP Internal Medicine; Visit Provider Psychiatry & Neurology Neurology | DX: R06.83 Snoring (principal) | CPT/HCPCS: 95806 ==

== ENCOUNTER 2023-01-25 09:41 | Outpatient (REF) | payer OTHER, SELFPAY ==
[2023-01-25 09:56] LABS: MANUAL DIFF FLAG NO
[2023-01-25 10:49] LABS: Basophils Percent Auto 0.3 % (0-2); Eosinophils Absolute Auto 0.2 X10*3/uL (0.0-0.4); Hematocrit 41.2 % (37.0-47.0); Hemoglobin 14.2 g/dl (12.0-16.0); Imm Gran Abs Auto 0.01 X10*3/uL (0.00-0.03); Imm Gran Pct Auto 0.1 % (0.0-0.4); Lymphocytes Absolute Auto 1.2 X10*3/uL (1.2-4.9); Lymphocytes Percent Auto 17.5 % (20-40); Mean Corpuscular HGB Conc 34.5 g/dl (31.0-35.0); Mean Platelet Volume 12.5 fL (9.4-12.3); Monocytes Absolute Auto 0.6 X10*3/uL (0.1-1.2); Monocytes Percent Auto 8.7 % (2-11); Neutrophils Absolute Auto 4.7 x10*3/uL (2.0-8.3); Neutrophils Percent Auto 70.4 % (45-73); Platelet Count 215 X10*3/uL (160-400); Red Blood Count 4.58 X10*6/uL (4.20-5.50); Red Cell Distribution Width 12.4 % (11.0-16.0); White Blood Count 6.7 X10*3/uL (4.8-10.8)
[2023-01-25 11:07] LABS: Alanine Aminotransferase 25 U/L (0-31); Albumin Level 4.7 g/dL (3.5-5.0); Alkaline Phosphatase 58 U/L (39-117); Anion Gap 11 (12-20); Aspartate Amino Transferase 22 U/L (5-31); Bilirubin Total 0.6 mg/dL (0.0-1.0); Blood Urea Nitrogen 21 mg/dL (9-16); Carbon Dioxide 30 mmol/L (22-29); Chloride 106 mmol/L (96-108); Cholesterol 174 mg/dL (<200); Estimated Glomerular Filt Rate > 60; Glucose Fasting 97 mg/dL (60-99); HDL Cholesterol 54 mg/dL (>40); LDL Cholesterol Calculated 102 mg/dL (<100); Potassium 4.1 mmol/L (3.3-5.1); Sodium 143 mmol/L (135-145); Total Protein 7.7 g/dL (6.5-8.0); Triglycerides 90 mg/dL (<150)
[2023-01-25 11:11] LABS: TSH reflex Free T4 3.91 uIU/mL (0.32-4.0); Vitamin D 25-OH Total 71.3 ng/mL (>30)
== END 2023-01-25 09:42 | disposition home or self-care (01) ==
LOC: HO.LAB 09:41
PROVIDERS: PCP Internal Medicine; Visit Provider Internal Medicine
DX: E78.00 Pure hypercholesterolemia, unspecified (principal); E55.9 Vitamin D deficiency, unspecified; I10 Essential (primary) hypertension
CPT/HCPCS: 36415; 80053; 80061; 82306; 84443; 85025

== ENCOUNTER 2023-03-11 14:12 | Outpatient (AMB) | payer OTHER, SELFPAY ==
[2023-03-11 14:14] VITALS: BP 112/80; PULSE 92; O2SAT 97; BMI 37.9
--- NOTE | 2023-03-11 14:14 | A.OFFPC_ITS ---
Vital Signs 03/11/23 14:14 Height 5 ft 8 in Weight 249 lb 2 oz BMI 37.9 BP 112/80 Blood Pressure Location Lt brachial Position Sitting Pulse 92 Pulse Source Pulse Oximeter Pulse Oximetry (%) 97 Oxygen Delivery Method Room Air Intake Visit Reasons: hyperlipidemia, fibromyalgia, arthralgia/OA Greenhouse Assistant Required: No Accompanied by: Self / Same As Patient Allergies No Known Allergies [No Known Allergies*] Allergy (Verified 03/11/23 14:42) Medication List - Last Reconciled 03/11/23 by Charlie Ty MD atorvastatin 20 mg PO DAILY 90 days calcium citrate-vitamin D3 315 mg-6.25 mcg (250 unit) (Citracal + Vitamin D Maximum) 1 tab PO DAILY cholecalciferol (vitamin D3) 1,250 mcg PO QWEEK clobetasol 0.05% 1 appl topical BID [CONTOUR Memory Foam Leg Pillow As directed] diclofenac sodium 1% (Voltaren Arthritis Pain) 2 grams topical QID PRN 30 days duloxetine 30 mg PO .qhs duloxetine (Cymbalta) 60 mg PO QAM gabapentin 400 mg PO BID ibuprofen 800 mg PO TID PRN [INCONTINENCE PADS Use 4 to 5 pads a day as directed] magnesium oxide 400 mg PO DAILY 30 days polyethylene glycol 3350 (Miralax) 17 grams PO DAILY tizanidine 4 mg PO Q8H PRN Tobacco use date assessed: 03/11/23 Dental Screening Dental Screen Date: 03/11/23 Did you have a dental visit in the last 12 months?: Yes Did you have a dental problem in the last 6 months where you did not have access to dental care?: No Was dental information given to patient?: Patient has dentist HPI hyperlipidemia, fibromyalgia, arthralgia/OA HPI Details Patient comes in today for her follow up visit States that she feels okay She continues to experience diffuse myalgias and multiple joint pains and low back pain but states that her symptoms are manageable and her current Rx are helping She denies any headaches or dizziness Denies any chest pains, no SOB No nausea/vomiting, no abdominal pain No change in bowel habits noted She is also now following up with Sleep Medicine and is currently being worked up to see if she has sleep apnea or not - has appt scheduled again for next week Had her follow up labs done a couple of months ago - to discuss her results [facility] Medical History Urinary incontinence Obesity (BMI 30-39.9) Vitamin D deficiency Lumbar degenerative disc disease Osteoarthritis Pure hypercholesterolemia Fibromyalgia Surgical History Hx of varicose veins H/O LEEP History of tubal ligation Family History Father Medical history unknown Mother Stroke Diabetes Hypertension CVD (cardiovascular disease) Brother Substance abuse Maternal Uncle Throat cancer Social History Household Members: None Housing: Apartment Are you a primary senior care specialist to a significant other at home: No Do you presently have visiting nurse or other home services: No 75 years or older and lives alone: No Alcohol intake: never Patient Tobacco Use Status: Never used Tobacco e-Cigarette/Vaping Use: Never Used Second Hand Smoke Exposure: No service: No Current occupational status: disabled Current occupational exposures/hazards: No Cognitive needs: No Hearing needs: No Vision needs: Yes Questionnaire PHQ-9 Over the last 2 weeks, how often have you been bothered by any of the following problems? 1. Little interest or pleasure in doing things: not at all 2. Feeling down, depressed, or hopeless: not at all 3. Trouble falling or staying asleep, or sleeping too much: not at all 4. Feeling tired or having little energy: not at all 5. Poor appetite or overeating: not at all 6. Feeling bad about yourself - or that you are a failure or have let yourself or your family down: not at all 7. Trouble concentrating on things, such as reading the newspaper or watching television: not at all 8. Moving or speaking so slowly that other people could have noticed. Or the opposite - being so fidgety or restless that you have been moving around a lot more than usual: not at all 9. Thoughts that you would be better off or of hurting yourself in some way: not at all Total score: 0 Depression Screening Interpretation: Negative Depression Screening Done: Yes 96992 - PHQ-9 Billing: Yes Source: Developed by Drs. Dax Armas, Alex Velasquez and colleagues, with an educational roscoe from [employer]. Thrive Questionnaire Date Thrive assessed: 03/11/23 I am a: Patient What is your living situation today?: I have a steady place to live Within the past 12 months, did the food you bought not last and you didn't have the money to get more?: Never true Within the past 12 months, did you worry whether your food would run out before you got money to buy more?: Never true Do you have trouble paying for medicines?: No Do you have trouble getting transportation to medical appointments?: No Do you have trouble paying your heating and electricity bill?: No Do you have trouble taking care of your child, family member or friend?: No Do you have trouble with day-to-day activities such as bathing, preparing meals, shopping, managing finances, etc.?: No Are you currently unemployed and looking for a job?: No Are you interested in more education?: No Please select the resources that you would like help with: None Currently or been in a relationship where the following occur: no concerns reported AUDIT C Alcohol Use Questionnaire (AUDIT-C) 1. How often do you have a drink containing alcohol?: Never 3. How often do you have six or more drinks on one occasion?: Never Total Score: 0 Score Reviewed/Action Taken: Yes CAM-7 AMB Questionnaire CAM-7 Date CAM - 7 assessed: 03/11/23 Feeling nervous, anxious, or on edge: 1 = Several days Not being able to stop or control worryin = Not at all Worrying too much about different things: 0 = Not at all Trouble relaxin = Not at all Being so restless that it is hard to sit still: 0 = Not at all Becoming easily annoyed or irritable: 0 = Not at all Feeling afraid as if something awful might happen: 0 = Not at all Total CAM-7 score (0-4 normal; 5-9 mild; 10-14 moderate; 15-21 severe): 1 Source: Developed by Drs. Dax Armas, Alex Velasquez and colleagues, with an educational roscoe from [employer]. Review of Systems Const Denies chills, Reports daytime sleepiness, Reports fatigue, Denies fever(s) and Denies headache(s) ENT Denies dysphagia, Denies dizziness, Denies otalgia, Denies headache(s), Denies neck pain, Denies odynophagia and Denies sore throat Card Denies chest pain, Denies palpitations and Denies dyspnea Resp Denies cough and Denies dyspnea GI Denies abdominal pain, Denies constipation, Denies dysphagia, Denies heartburn, Denies diarrhea, Denies nausea, Denies odynophagia and Denies vomiting Reports nocturia, Denies dysuria, Reports urinary incontinence and Denies urinary urgency Musc Reports myalgias (recurrent, especially behind both shoulders), Reports arthralgias (on and off involving multiple joints, including left knee), Denies neck pain and Reports stiffness Skin/Breast Denies rash Neuro Denies dizziness and Denies headache(s) Psych Denies anxiety Endo Reports fatigue and Denies palpitations Ray/Lymph Denies easy bruising Physical exam (Primary Care) Vital Signs: Last Vital Signs Pulse 92 03/11/23 14:14 BP 112/80 03/11/23 14:14 Pulse Ox 97 03/11/23 14:14 Oxygen Delivery Method Room Air 03/11/23 14:14 BMI result Body Mass Index 37.9 Tobacco/Smoking Status: Tobacco use Status Tobacco use date assessed 03/11/23 03/11/23 14:19 Patient Tobacco Use Status Never used Tobacco 03/11/23 14:19 e-Cigarette/Vaping Use Never Used 03/11/23 14:19 PHQ-9: PHQ-9 Score PHQ-9: Total score 0 03/11/23 14:19 Depression Screening Interpretation: Negative Thrive Assessment: Date of Thrive Assessment Date Thrive assessed 03/11/23 03/11/23 14:19 Currently or been in a relationship where the following occur: no concerns reported Const General: no acute distress and alert HENMT Ears: TM's normal bilaterally and EAC's normal Throat: Yes posterior oropharynx normal and Yes tonsils normal (no TP congestion noted) Neck Neck: Yes no lymphadenopathy and Yes tender (over the cervical spine and paraspinal areas bilaterally) Thyroid: Thyroid normal Resp Auscultation: clear to auscultation bilaterally, no rales and no wheezes Cardio Rate: regular rate Rhythm: regular rhythm Heart sounds: no murmurs GI Palpation (GI): Soft to palpation and nontender Auscultation: normal bowel sounds Back/Spine/Pelvis Cervical Spine: cervical muscular tenderness Thoracic/Lumbar Spine: paraspinal muscle tenderness bilaterally (over the cervical and thoracolumbar spine (diffuse)) and lumbar spinal tenderness Skin Rashes: no rashes Neuro General: no focal motor deficits Extrem General: Yes no clubbing, cyanosis or edema Right upper extremity: shoulder/upper arm Details: tenderness (diffusely over the scapular area) Left upper extremity: shoulder/upper arm Details: tenderness (diffusely over the scapular areas) Left lower extremity: knee Details: tenderness Results Reviewed Results Reviewed: Laboratory Tests 01/25/23 09:54 WBC 6.7 Hgb 14.2 Hct 41.2 Plt Count 215 Sodium 143 Potassium 4.1 Creatinine 0.70 Estimated GFR > 60 Fasting Glucose 97 Calcium 10.0 AST 22 ALT 25 Triglycerides 90 Cholesterol 174 LDL Cholesterol, Calc 102 H HDL Cholesterol 54 25-OH Vitamin D Total 71.3 TSH 3.91 Assessment and Plan Assessment & Plan (1) Pure hypercholesterolemia: Code(s): E78.00 - Pure hypercholesterolemia, unspecified Plan: Results of her labs done a couple of months ago reviewed and discussed with patient - she is cautioned that her total and LDL cholesterol have both increased from previous on her recent labs Reinforced low-cholesterol diet Continue Atorvastatin 10 mg QD for now Will recheck her labs and fasting lipids in 3 to 4 months for follow-up (2) Lumbar degenerative disc disease: Code(s): M51.36 - Other intervertebral disc degeneration, lumbar region Plan: Reinforced activity and weight lifting restrictions Continue Gabapentin 400 mg BID and Tizanidine 4 mg Q 8 hours as needed (3) Polyarthralgia: Code(s): M25.50 - Pain in unspecified joint Plan: Mostly due to osteoarthritis Repeat x-rays of the left knee done in August 2021 confirmed (+) OA changes in her left knee Lab work ups done a couple of years ago were negative for any inflammatory arth ritis or condition Follow up with rheumatology as scheduled (4) Osteoarthritis: Code(s): M19.90 - Unspecified osteoarthritis, unspecified site Qualifiers: Osteoarthritis location: unspecified site Osteoarthritis type: primary Qualified Code(s): M19.91 - Primary osteoarthritis, unspecified site Plan: Continue Ibuprofen 800 mg 3 times a day as needed and Voltaren gel 1% apply 1 to 2 times a day as needed Patient also takes Tylenol 5 mg every 6-8 hours additionally as needed for increased pain (5) Fibromyalgia: Code(s): M79.7 - Fibromyalgia Plan: Patient is encouraged again to stay active and exercise regularly to help manage her fibromyalgia symptoms Continue Duloxetine 60 mg QD; is also on Gabapentin and Tizanidine to help manage her symptoms Follow up with rheumatology as scheduled (6) Daytime somnolence: Code(s): R40.0 - Somnolence Plan: Her home sleep study done in November 2022 apaprently came out with mild TOMAS, with oxygen asher at 83% She is reportedly being scheduled for an in-lab study for further evaluation Follow up with Sleep Medicine as scheduled (7) Vitamin D deficiency: Code(s): E55.9 - Vitamin D deficiency, unspecified Plan: Continue Vitamin D2 98659 units once a week (8) Urinary incontinence: Code(s): R32 - Unspecified urinary incontinence Qualifiers: Urinary Incontinence type: unspecified incontinence Qualified Code(s): R32 - Unspecified urinary incontinence Plan: Uses incontinence pads PRN Follow up with urology as scheduled Patient again advised to try limiting her oral fluids after dinner and this may help lessen her need to wake up and go to the bathroom often in the middle of the night (9) Obesity (BMI 30-39.9): Code(s): E66.9 - Obesity, unspecified Plan: Reinforced diet/exercise as tolerated/lose weight Plan Follow up in 3 to 4 months - requested for appt in May 2023 as she is scheduled to leave for a month long vacation to [place] in June 2023 Orders: Orders Complete Blood Count Auto Diff 06/03/23 D64.9 - Anemia, unspecified, M25.50 - Pain in unspecified joint, M79.7 - Fibromyalgia Comprehensive [place]. Panel Fast 06/03/23 E78.00 - Pure hypercholesterolemia, unspecified, M25.50 - Pain in unspecified joint, M79.7 - Fibromyalgia Lipid Panel 06/03/23 E78.00 - Pure hypercholesterolemia, unspecified, M25.50 - Pain in unspecified joint, M79.7 - Fibromyalgia TSH reflex Free T4 06/03/23 E78.00 - Pure hypercholesterolemia, unspecified, M25.50 - Pain in unspecified joint, M79.7 - Fibromyalgia UA CC w/rflx Micro + Cult 06/03/23 M25.50 - Pain in unspecified joint, M79.7 - Fibromyalgia, R30.0 - Dysuria Vitamin D 25-OH Total 06/03/23 E55.9 - Vitamin D deficiency, unspecified, M25.50 - Pain in unspecified joint, M79.7 - Fibromyalgia C Reactive Protein 06/03/23 M25.50 - Pain in unspecified joint, M79.7 - Fibromyalgia Erythrocyte Sedimentation Rate 06/03/23 M25.50 - Pain in unspecified joint, M79.7 - Fibromyalgia Coding Level of Care Code Est Pt Level 4 (05979) Diagnoses Pure hypercholesterolemia E78.00 Lumbar degenerative disc disease M51.36 Polyarthralgia M25.50 Primary osteoarthritis, unspecified site M19.91 Osteoarthritis location: unspecified site Osteoarthritis type: primary Fibromyalgia M79.7 Daytime somnolence R40.0 Vitamin D deficiency E55.9 Urinary incontinence, unspecified type R32 Urinary Incontinence type: unspecified incontinence Obesity (BMI 30-39.9) E66.9
== END 2023-03-11 14:46 | disposition home or self-care (01) ==
PROVIDERS: PCP Internal Medicine; Visit Provider Internal Medicine
DX: E78.00 Pure hypercholesterolemia, unspecified (principal); M51.36 Other intervertebral disc degeneration, lumbar region; E66.9 Obesity, unspecified; Z68.37 Body mass index [BMI] 37.0-37.9, adult; M25.50 Pain in unspecified joint; M19.91 Primary osteoarthritis, unspecified site; M79.7 Fibromyalgia; R40.0 Somnolence; E55.9 Vitamin D deficiency, unspecified; R32 Unspecified urinary incontinence
CPT/HCPCS: 99214

== ENCOUNTER 2023-03-15 10:17 | Outpatient (AMB) | payer OTHER, SELFPAY ==
--- NOTE | 2023-03-15 10:36 | MHC.OFFVIS ---
Intake Vital Signs 03/15/23 10:45 Height 5 ft 8 in Weight 250 lb 2 oz BMI 38.0 BP 120/70 Blood Pressure Location Lt brachial Position Sitting Pulse 78 Pulse Source Pulse Oximeter Pulse Oximetry (%) 75 L Oxygen Delivery Method Room Air Intake Visit Reasons: 4m fu Fatigue/Somnolence - Confirmed Intake Note: patients presents for four month fatigue. Allergies No Known Allergies [No Known Allergies*] Allergy (Verified 03/15/23 10:40) HPI HPI Comments History of Present Illness Details 57 y/o female patient presents for follow up of sleep study. The home sleep study result was significant for a mild degree of sleep apnea. The AHI was 5/hr and oxygen asher was 83%. The total duration of O2 sat below 88% was 2 min. APAP [id number] ordered in November, but patient did not get CPAP yet. Pt reports snoring and gasping arousals and daytime sleepiness. She feels always tired, sleepy and yawing a lot. She can easily falling asleep during conversations. Pt goes to bed at midnight, and sleeps 5-6 hours. She has difficulty falling asleep at night and having frequent arousals. [facility] Medical History Urinary incontinence Obesity (BMI 30-39.9) Vitamin D deficiency Lumbar degenerative disc disease Osteoarthritis Pure hypercholesterolemia Fibromyalgia Surgical History Hx of varicose veins H/O LEEP History of tubal ligation Family History Father Medical history unknown Mother Stroke Diabetes Hypertension CVD (cardiovascular disease) Brother Substance abuse Maternal Uncle Throat cancer Social History Household Members: None Housing: Apartment Are you a primary farm or ranch animal caretaker to a significant other at home: No Do you presently have visiting nurse or other home services: No 75 years or older and lives alone: No Alcohol intake: never Patient Tobacco Use Status: Never used Tobacco e-Cigarette/Vaping Use: Never Used Second Hand Smoke Exposure: No service: No Current occupational status: disabled Current occupational exposures/hazards: No Cognitive needs: No Hearing needs: No Vision needs: Yes Review of Systems Const All systems reviewed & are unremarkable except as noted in HPI and below ENT Reports Normal hearing present Neuro Reports Normal hearing present Physical Exam Vital Signs: Last Vital Signs Pulse 78 03/15/23 10:45 BP 120/70 03/15/23 10:45 Pulse Ox 75 L 03/15/23 10:45 Oxygen Delivery Method Room Air 03/15/23 10:45 BMI result Body Mass Index 38.0 Const General: cooperative Nutritional Appearance: obese Orientation/consciousness: patient oriented x3 HEENT Throat: Yes other (mallampati grade 4) Neck Neck: Yes full ROM and Yes supple Resp Effort & Inspection: normal respiratory effort and able to speak in complete sentences Neuro General: patient oriented x3 and gait normal Cranial nerves: Yes Bilaterally intact EOM present, Yes Normal facial strength present, Yes Midline tongue present, Yes Symmetric palate elevation present, Yes Normal hearing present, Yes Ability to bilaterally rotate head present and Yes Ability to bilaterally elevate shoulders present Cognition (Neuro): normal cognition Gait exam (Neuro): Normal gait present Motor exam (neuro): 5/5 motor strength present throughout, Pronator motor function not present and no tremor noted Psych Appearance: grossly normal Mental Status: mental status grossly normal Speech and movement: Normal speech and movement present Affect: normal affect Attitude: cooperative Assessment & Plan Assessment & Plan (1) Fatigue: Code(s): R53.83 - Other fatigue (2) Daytime somnolence: Code(s): R40.0 - Somnolence (3) TOMAS (obstructive sleep apnea): Comment: Mild degree of sleep apnea. The AHI was 5/hr. oxygen asher was 83%. Code(s): G47.33 - Obstructive sleep apnea (adult) (pediatric) Plan Resend CPAP order to [facility]. Start APAP [id number] to manage sleep apnea and daytime sleepiness. Stressed compliance, use CPAP nightly and more than 4 hrs. Try magnesium 400 mg qHS to help sleep better. Wt reduction advised. Medications: Refilled magnesium oxide 400 mg PO DAILY 30 tabs 3RF 30 days Coding Level of Care Code Est Pt Level 3 (36364) Diagnoses Fatigue R53.83 Daytime somnolence R40.0 TOMAS (obstructive sleep apnea) G47.33
[2023-03-15 10:45] VITALS: BP 120/70; PULSE 78; O2SAT 75; BMI 38.0
== END 2023-03-15 11:02 | disposition home or self-care (01) ==
PROVIDERS: PCP Internal Medicine; Visit Provider Nurse Practitioner Family
DX: R53.83 Other fatigue (principal); R40.0 Somnolence; G47.33 Obstructive sleep apnea (adult) (pediatric)
CPT/HCPCS: 99213

== ENCOUNTER → 2023-03-15 10:17 | Outpatient (BNVA) | payer OTHER, SELFPAY | PROVIDERS: PCP Internal Medicine; Visit Provider Nurse Practitioner Family | DX: R40.0 Somnolence (principal); R53.83 Other fatigue; G47.33 Obstructive sleep apnea (adult) (pediatric) | CPT/HCPCS: 99212 ==

== ENCOUNTER 2023-06-22 10:27 | Outpatient (AMB) | payer OTHER, SELFPAY ==
--- NOTE | 2023-06-22 10:33 | MHC.OFFVIS ---
Vital Signs 06/22/23 10:38 Height 5 ft 8 in Weight 249 lb 2 oz BMI 37.9 BP 112/72 Blood Pressure Location Lt brachial Position Sitting Pulse 85 Pulse Source Pulse Oximeter Pulse Oximetry (%) 95 Oxygen Delivery Method Room Air Intake Visit Reasons: 4 mo f/u Intake Note: Patient presents for 4 month f/u. Allergies No Known Allergies [No Known Allergies*] Allergy (Verified 06/22/23 10:37) HPI Comments Details: 57 y/o female patient presents for follow up of TOMAS on CPAP. The home sleep study result was significant for a mild degree of sleep apnea. The AHI was 5/hr and oxygen asher was 83%. The total duration of O2 sat below 88% was 2 min. Pt started APAP 5-15 cmH2O. The CPAP compliance and therapy response (03/17/23-06/14/23) reviewed. The usage days 63% and the average usage hours 3 hrs. The max pressure was 11.6 and the residual AHI was 2.5/hr. Pt reports she had a flu and had difficulty to use CPAP. Pt goes to bed at midnight, and sleeps 5-6 hours. She has difficulty falling asleep at night and having nocturia, wakes up several times. [facility] Medical History Urinary incontinence Obesity (BMI 30-39.9) Vitamin D deficiency Lumbar degenerative disc disease Osteoarthritis Pure hypercholesterolemia Fibromyalgia Surgical History Hx of varicose veins H/O LEEP History of tubal ligation Family History Father Medical history unknown Mother Stroke Diabetes Hypertension CVD (cardiovascular disease) Brother Substance abuse Maternal Uncle Throat cancer Social History Household Members: None Housing: Apartment Are you a primary director of career resources to a significant other at home: No Do you presently have visiting nurse or other home services: No 75 years or older and lives alone: No Alcohol intake: never Patient Tobacco Use Status: Never used Tobacco e-Cigarette/Vaping Use: Never Used Second Hand Smoke Exposure: No service: No Current occupational status: disabled Current occupational exposures/hazards: No Cognitive needs: No Hearing needs: No Vision needs: Yes Review of Systems Const All systems reviewed & are unremarkable except as noted in HPI and below ENT Reports Normal hearing present Neuro Reports Normal hearing present Physical Exam Vital Signs: Last Vital Signs Pulse 85 06/22/23 10:38 BP 112/72 06/22/23 10:38 Pulse Ox 95 06/22/23 10:38 Oxygen Delivery Method Room Air 06/22/23 10:38 BMI result Body Mass Index 37.9 Const General: cooperative Nutritional Appearance: obese Orientation/consciousness: patient oriented x3 HEENT Throat: Yes other (mallampati grade 4) Neck Neck: Yes full ROM and Yes supple Resp Effort & Inspection: normal respiratory effort and able to speak in complete sentences Neuro General: patient oriented x3 and gait normal Cranial nerves: Yes Bilaterally intact EOM present, Yes Normal facial strength present, Yes Midline tongue present, Yes Symmetric palate elevation present, Yes Normal hearing present, Yes Ability to bilaterally rotate head present and Yes Ability to bilaterally elevate shoulders present Cognition (Neuro): normal cognition Gait exam (Neuro): Normal gait present Motor exam (neuro): 5/5 motor strength present throughout, Pronator motor function not present and no tremor noted Psych Appearance: grossly normal Mental Status: mental status grossly normal Speech and movement: Normal speech and movement present Affect: normal affect Attitude: cooperative Assessment & Plan Assessment & Plan (1) TOMAS (obstructive sleep apnea): Comment: Mild degree of sleep apnea. The AHI was 5/hr. oxygen asher was 83%. Code(s): G47.33 - Obstructive sleep apnea (adult) (pediatric) Category: Medical Plan Continue to use APAP [id number] to manage sleep apnea and daytime sleepiness. Stressed compliance, use CPAP nightly and more than 4 hrs. Try magnesium 400 mg qHS to help sleep better. Wt reduction advised. Coding Level of Care Code Est Pt Level 3 (36245) Diagnoses TOMAS (obstructive sleep apnea) G47.33
[2023-06-22 10:38] VITALS: BP 112/72; PULSE 85; O2SAT 95; BMI 37.9
== END 2023-06-22 11:26 | disposition home or self-care (01) ==
PROVIDERS: PCP Internal Medicine; Visit Provider Nurse Practitioner Family
DX: G47.33 Obstructive sleep apnea (adult) (pediatric) (principal)
CPT/HCPCS: 99213

== ENCOUNTER → 2023-06-22 10:27 | Outpatient (BNVA) | payer OTHER, SELFPAY | PROVIDERS: PCP Internal Medicine; Visit Provider Nurse Practitioner Family | DX: G47.33 Obstructive sleep apnea (adult) (pediatric) (principal) | CPT/HCPCS: 99212 ==

== ENCOUNTER 2023-09-12 10:24 | Outpatient (REF) | payer OTHER, SELFPAY ==
[2023-09-12 10:41] LABS: MANUAL DIFF FLAG NO
[2023-09-12 11:39] LABS: Basophils Percent Auto 0.2 % (0-2); Eosinophils Absolute Auto 0.2 X10*3/uL (0.0-0.4); Eosinophils Percent Auto 3.1 % (0-4); Hematocrit 39.5 % (37.0-47.0); Hemoglobin 13.2 g/dl (12.0-16.0); Imm Gran Abs Auto 0.02 X10*3/uL (0.00-0.03); Imm Gran Pct Auto 0.4 % (0.0-0.4); Lymphocytes Absolute Auto 0.8 X10*3/uL (1.2-4.9); Lymphocytes Percent Auto 17.2 % (20-40); Mean Corpuscular HGB Conc 33.4 g/dl (31.0-35.0); Mean Corpuscular Hemoglobin 30.7 pg (27.0-33.0); Mean Corpuscular Volume 91.9 fL (80.0-98.0); Mean Platelet Volume 12.6 fL (9.4-12.3); Monocytes Absolute Auto 0.5 X10*3/uL (0.1-1.2); Monocytes Percent Auto 9.9 % (2-11); Neutrophils Absolute Auto 3.3 x10*3/uL (2.0-8.3); Neutrophils Percent Auto 69.2 % (45-73); Platelet Count 202 X10*3/uL (160-400); Red Cell Distribution Width 12.3 % (11.0-16.0); White Blood Count 4.8 X10*3/uL (4.8-10.8)
[2023-09-12 12:18] LABS: Erythrocyte Sedimentation Rate 3 MM/HR (0-20)
[2023-09-12 12:32] LABS: Alanine Aminotransferase 17 U/L (0-31); Albumin Level 4.5 g/dL (3.5-5.0); Alkaline Phosphatase 49 U/L (39-117); Anion Gap 14 (12-20); Aspartate Amino Transferase 15 U/L (5-31); Bilirubin Total 0.7 mg/dL (0.0-1.0); Blood Urea Nitrogen 14 mg/dL (9-16); C Reactive Protein 0.23 mg/dL (< or = 0.50); Calcium 10.3 mg/dL (8.4-10.2); Carbon Dioxide 27 mmol/L (22-29); Chloride 109 mmol/L (96-108); Cholesterol 134 mg/dL (<200); Estimated Glomerular Filt Rate > 60; Glucose Fasting 95 mg/dL (60-99); HDL Cholesterol 47 mg/dL (>40); LDL Cholesterol Calculated 76 mg/dL (<100); Potassium 4.6 mmol/L (3.3-5.1); Sodium 145 mmol/L (135-145); Triglycerides 56 mg/dL (<150)
[2023-09-12 12:38] LABS: Vitamin D 25-OH Total 79.5 ng/mL (>30)
[2023-09-12 13:20] LABS: Appearance Urine Clear; Color Urine Yellow; Glucose Urine UA Negative (Negative); Leukocyte Esterase Urine Trace (Negative); Nitrite Urine Negative (Negative); PH 7.5 (5.0-9.0); Specific Gravity - Urine 1.025 (1.005-1.025); UMIC TRIGGER UACC YES; Urine Blood Negative (Negative); Urine Ketones Negative (Negative); Urine Protein Trace mg/dL (Neg-Trace)
[2023-09-12 13:28] LABS: Bacteria Urine Trace (None Seen); Hyaline Casts Urine 0-2 /LPF (0-2); RBC Urine 0-2 /HPF (0-2); WBC Urine 0-5 /HPF (0-5)
== END 2023-09-12 10:25 | disposition home or self-care (01) ==
LOC: HO.LAB 10:24
PROVIDERS: PCP Internal Medicine; Visit Provider Internal Medicine
DX: D64.9 Anemia, unspecified (principal); M25.50 Pain in unspecified joint; M79.7 Fibromyalgia; E78.00 Pure hypercholesterolemia, unspecified; E55.9 Vitamin D deficiency, unspecified
CPT/HCPCS: 36415; 80053; 80061; 81001; 81003; 82306; 84443; 85025; 85652; 86140

== ENCOUNTER 2023-09-27 14:21 | Outpatient (AMB) | payer OTHER, SELFPAY ==
[2023-09-27 14:28] VITALS: BP 114/72; PULSE 77; O2SAT 98; BMI 37.4
--- NOTE | 2023-09-27 14:28 | A.OFFPC_ITS ---
Vital Signs 09/27/23 14:28 Height 5 ft 8 in Weight 246 lb BMI 37.4 BP 114/72 Blood Pressure Location Lt brachial Position Sitting Pulse 77 Pulse Source Pulse Oximeter Pulse Oximetry (%) 98 Oxygen Delivery Method Room Air Intake Visit Reasons: 6 month follow up Allergies No Known Allergies [No Known Allergies*] Allergy (Verified 09/27/23 14:50) Medication List - Last Reconciled 09/27/23 by Charlie Ty MD atorvastatin 20 mg PO DAILY 90 days calcium citrate-vitamin D3 315 mg-6.25 mcg (250 unit) (Citracal + Vitamin D Maximum) 1 tab PO DAILY cholecalciferol (vitamin D3) 1,250 mcg PO QWEEK clobetasol 0.05% 1 appl topical BID [CONTOUR Memory Foam Leg Pillow As directed] diclofenac sodium 1% (Voltaren Arthritis Pain) 2 grams topical QID PRN 30 days duloxetine 30 mg PO .qhs duloxetine (Cymbalta) 60 mg PO QAM gabapentin 400 mg PO BID ibuprofen 800 mg PO TID PRN [INCONTINENCE PADS Use 4 to 5 pads a day as directed] magnesium oxide 400 mg PO DAILY 30 days polyethylene glycol 3350 (Miralax) 17 grams PO DAILY tizanidine 4 mg PO Q8H PRN Tobacco use date assessed: 03/11/23 Dental Screening Dental Screen Date: 03/11/23 HPI 6 month follow up HPI Details Patient comes in today for her follow up visit States that she feels okay but reports that she is still experiencing on and off pain mostly over her upper back just behind the shoulders She denies any headaches or dizziness Denies any chest pains, no SOB No nausea/vomiting, no abdominal pain No change in bowel habits noted She is now using a CPAP device when sleeping at night but admits that she only uses it half of the time due to the inconvenient sensation of having something on her face when she is sleeping at night She had her follow up labs done a couple of weeks ago - to discuss her results [facility] Medical History Urinary incontinence Obesity (BMI 30-39.9) Vitamin D deficiency Lumbar degenerative disc disease Osteoarthritis Pure hypercholesterolemia Fibromyalgia Surgical History Hx of varicose veins H/O LEEP History of tubal ligation Family History Father Medical history unknown Mother Stroke Diabetes Hypertension CVD (cardiovascular disease) Brother Substance abuse Maternal Uncle Throat cancer Social History Household Members: None Housing: Apartment Are you a primary assurance services manager health care to a significant other at home: No Do you presently have visiting nurse or other home services: No 75 years or older and lives alone: No Alcohol intake: never Patient Tobacco Use Status: Never used Tobacco e-Cigarette/Vaping Use: Never Used Second Hand Smoke Exposure: No service: No Current occupational status: disabled Current occupational exposures/hazards: No Cognitive needs: No Hearing needs: No Vision needs: Yes Questionnaire PHQ-9 Over the last 2 weeks, how often have you been bothered by any of the following problems? 1. Little interest or pleasure in doing things: not at all 2. Feeling down, depressed, or hopeless: not at all 3. Trouble falling or staying asleep, or sleeping too much: not at all 4. Feeling tired or having little energy: not at all 5. Poor appetite or overeating: not at all 6. Feeling bad about yourself - or that you are a failure or have let yourself or your family down: not at all 7. Trouble concentrating on things, such as reading the newspaper or watching television: not at all 8. Moving or speaking so slowly that other people could have noticed. Or the opposite - being so fidgety or restless that you have been moving around a lot more than usual: not at all 9. Thoughts that you would be better off or of hurting yourself in some way: not at all Total score: 0 Depression Screening Interpretation: Negative Depression Screening Done: Yes 78356 - PHQ-9 Billing: Yes Source: Developed by Drs. Dax Armas, Jovita Ozuna, Alex Aceves and colleagues, with an educational roscoe from [employer]. Thrive Questionnaire Date Thrive assessed: 03/11/23 AUDIT C Alcohol Use Questionnaire (AUDIT-C) 1. How often do you have a drink containing alcohol?: Never 3. How often do you have six or more drinks on one occasion?: Never Total Score: 0 Score Reviewed/Action Taken: Yes CAM-7 AMB Questionnaire CAM-7 Date CAM - 7 assessed: 03/11/23 Source: Developed by Drs. Dax Armas, Jovita Ozuna, Alex Aceves and colleagues, with an educational roscoe from [employer]. Review of Systems Const Denies chills, Denies fatigue, Denies fever(s) and Denies headache(s) ENT Denies dysphagia, Denies dizziness, Denies otalgia, Denies headache(s), Denies neck pain, Denies odynophagia and Denies sore throat Card Denies chest pain, Denies palpitations and Denies dyspnea Resp Denies cough and Denies dyspnea GI Denies abdominal pain, Denies constipation, Denies dysphagia, Denies heartburn, Denies diarrhea, Denies nausea, Denies odynophagia and Denies vomiting Reports nocturia, Denies dysuria, Reports urinary incontinence and Denies urinary urgency Musc Reports back pain (on and off, mostly over the upper back behind the shoulders), Reports myalgias (recurrent, especially behind both shoulders), Reports arthralgias (on and off involving multiple joints, including left knee) and Denies neck pain Skin/Breast Denies rash Neuro Denies dizziness and Denies headache(s) Psych Denies anxiety Endo Denies fatigue and Denies palpitations Ray/Lymph Denies easy bruising Physical exam (Primary Care) Vital Signs: Last Vital Signs Pulse 77 09/27/23 14:28 BP 114/72 09/27/23 14:28 Pulse Ox 98 09/27/23 14:28 Oxygen Delivery Method Room Air 09/27/23 14:28 BMI result Body Mass Index 37.4 Tobacco/Smoking Status: Tobacco use Status Tobacco use date assessed 03/11/23 09/27/23 14:34 Patient Tobacco Use Status Never used Tobacco 09/27/23 14:34 e-Cigarette/Vaping Use Never Used 09/27/23 14:34 PHQ-9: PHQ-9 Score PHQ-9: Total score 0 09/27/23 14:34 Depression Screening Interpretation: Negative Thrive Assessment: Date of Thrive Assessment Date Thrive assessed 03/11/23 09/27/23 14:34 Const General: no acute distress and alert HENMT Ears: TM's normal bilaterally and EAC's normal Throat: Yes posterior oropharynx normal and Yes tonsils normal (no TP congestion noted) Neck Neck: Yes no lymphadenopathy and Yes tender (mild - over the cervical spine and paraspinal areas bilaterally) Thyroid: Thyroid normal Resp Auscultation: clear to auscultation bilaterally, no rales and no wheezes Cardio Rate: regular rate Rhythm: regular rhythm Heart sounds: no murmurs GI Palpation (GI): Soft to palpation and nontender Auscultation: normal bowel sounds General: Yes no CVA tenderness Back/Spine/Pelvis Back: no CVA tenderness Cervical Spine: cervical muscular tenderness Thoracic/Lumbar Spine: paraspinal muscle tenderness bilaterally (over the cervical and thoracolumbar spine (diffuse)) and lumbar spinal tenderness Skin Rashes: no rashes Neuro General: no focal motor deficits Extrem General: Yes no clubbing, cyanosis or edema Right upper extremity: shoulder/upper arm Details: tenderness (diffusely over the scapular area) Left upper extremity: shoulder/upper arm Details: tenderness (diffusely over the scapular areas) Left lower extremity: knee Details: tenderness Results Reviewed Results Reviewed: Laboratory Tests 09/12/23 09/12/23 10:38 10:39 WBC 4.8 Hgb 13.2 Hct 39.5 Plt Count 202 ESR 3 Sodium 145 Potassium 4.6 Creatinine 0.74 Estimated GFR > 60 Fasting Glucose 95 Calcium 10.3 H AST 15 ALT 17 C-Reactive Protein 0.23 Triglycerides 56 Cholesterol 134 LDL Cholesterol, Calc 76 HDL Cholesterol 47 25-OH Vitamin D Total 79.5 TSH 2.50 Ur Specific [place] 1.025 Urine Protein Trace Urine Glucose (UA) Negative Urine Blood Negative Urine Nitrite Negative Ur Leukocyte Esterase Trace H Assessment and Plan Assessment & Plan (1) Pure hypercholesterolemia: Code(s): E78.00 - Pure hypercholesterolemia, unspecified Plan: Results of her labs done a couple of weeks ago reviewed and discussed with patient - advised that both her total and LDL cholesterol levels have improved significantly from previous Reinforced low-cholesterol diet Continue Atorvastatin 10 mg QD Will recheck her labs and fasting lipids in 3 to 4 months for follow-up (2) Lumbar degenerative disc disease: Code(s): M51.36 - Other intervertebral disc degeneration, lumbar region Plan: Reinforced activity and weight lifting restrictions Continue Gabapentin 400 mg BID and Tizanidine 4 mg Q 8 hours as needed (3) Polyarthralgia: Code(s): M25.50 - Pain in unspecified joint Plan: Mostly due to osteoarthritis Repeat x-rays of the left knee done in August 2021 confirmed (+) OA changes in her left knee Lab work ups done a couple of years ago were negative for any inflammatory arthritis or condition Follow up with rheumatology as scheduled (4) Osteoarthritis: Code(s): M19.90 - Unspecified osteoarthritis, unspecified site Qualifiers: Osteoarthritis location: unspecified site Osteoarthritis type: primary Qualified Code(s): M19.91 - Primary osteoarthritis, unspecified site Plan: Continue Ibuprofen 800 mg 3 times a day as needed and Voltaren gel 1% apply 1 to 2 times a day as needed Patient also takes Tylenol 500 mg every 6-8 hours additionally as needed for increased pain (5) Fibromyalgia: Code(s): M79.7 - Fibromyalgia Plan: Patient is encouraged again to stay active and exercise regularly to help manage her fibromyalgia symptoms Continue Duloxetine 60 mg QD; is also on Gabapentin and Tizanidine to help manage her symptoms Follow up with rheumatology as scheduled (6) TOMAS (obstructive sleep apnea): Comment: Mild degree of sleep apnea. The AHI was 5/hr. oxygen asher was 83%. Code(s): G47.33 - Obstructive sleep apnea (adult) (pediatric) Plan: Her home sleep study done in November 2022 apaprently came out with mild TOMAS, with oxygen asher at 83% She has a CPAP device and settings are recommended at APAP 5-15 cmH2O but patient admits to using her device only some of the time as she finds it uncomfortable to sleep at night with something on her face Have advised her to speak with Sleep Medicine about this at her next appt and stressed to her the importance of compliance with CPAP therapy and of treating TOMAS to prevent significant health issues in the future, especially heart disease and heart failure Follow up with Sleep Medicine as scheduled (7) Vitamin D deficiency: Code(s): E55.9 - Vitamin D deficiency, unspecified Plan: Continue Vitamin D2 43117 units once a week (8) Urinary incontinence: Code(s): R32 - Unspecified urinary incontinence Qualifiers: Urinary Incontinence type: unspecified incontinence Qualified Code(s): R32 - Unspecified urinary incontinence Plan: She uses incontinence pads PRN Follow up with urology as scheduled (9) Obesity (BMI 30-39.9): Code(s): E66.9 - Obesity, unspecified Plan: Reinforced diet/exercise as tolerated/lose weight Plan Follow up in 4 months Orders: Orders Comprehensive [place]. Panel Fast 4 Months E78.00 - Pure hypercholesterolemia, unspecified Complete Blood Count Auto Diff 4 Months D64.9 - Anemia, unspecified Lipid Panel 4 Months E78.00 - Pure hypercholesterolemia, unspecified Coding Level of Care Code Est Pt Level 4 (67909) Complex EM visit Add On G2211 Diagnoses Pure hypercholesterolemia E78.00 Lumbar degenerative disc disease M51.36 Polyarthralgia M25.50 Primary osteoarthritis, unspecified site M19.91 Osteoarthritis location: unspecified site Osteoarthritis type: primary Fibromyalgia M79.7 TOMAS (obstructive sleep apnea) G47.33 Vitamin D deficiency E55.9 Urinary incontinence, unspecified type R32 Urinary Incontinence type: unspecified incontinence Obesity (BMI 30-39.9) E66.9
== END 2023-09-27 15:00 | disposition home or self-care (01) ==
PROVIDERS: PCP Internal Medicine; Visit Provider Internal Medicine
DX: E78.00 Pure hypercholesterolemia, unspecified (principal); M51.36 Other intervertebral disc degeneration, lumbar region; M79.7 Fibromyalgia; G47.33 Obstructive sleep apnea (adult) (pediatric); E55.9 Vitamin D deficiency, unspecified; R32 Unspecified urinary incontinence
CPT/HCPCS: 99214; G2211

== ENCOUNTER 2023-11-11 13:25 | Outpatient (REF) | payer OTHER, SELFPAY ==
--- NOTE | ~2023-11-11 | MM_ITS ---
EXAMINATION: MM SCREENING DIGITAL BREAST TOMOSYNTHESIS, BILATERAL CLINICAL INFORMATION: Screening. Asymptomatic. COMPARISON: Mammography: Comparison is made with available priors TECHNIQUE: Digital breast mammography with tomosynthesis is performed in both the craniocaudal and mediolateral oblique views along with computer-aided detection (CAD). FINDINGS: There are scattered areas of fibroglandular density (ACR BI-RADS breast composition Category b). There are no significant masses, abnormal calcifications, or other abnormalities. MM/MM tomosynthesis screening BI IMPRESSION: No mammographic evidence of malignancy. ASSESSMENT: BI-RADS BI-RADS 1 - Negative RECOMMENDATION: Routine annual mammography screening. 1 year F/U This examination should not preclude the clinical evaluation of a suspicious palpable abnormality. This patient's information was entered into a reminder system with a target due date for their next mammogram. Electronically signed by: Rosemary Regan DO 11/24/2023 08:29 PM EDT
== END 2023-11-11 13:26 | disposition home or self-care (01) ==
LOC: HO.MAMMO 13:25
PROVIDERS: PCP Internal Medicine; Visit Provider Internal Medicine
DX: Z12.31 Encounter for screening mammogram for malignant neoplasm of breast (principal)
CPT/HCPCS: 77063; 77067

== ENCOUNTER → 2023-11-11 13:45 | Outpatient (BNV) | payer OTHER, SELFPAY | PROVIDERS: PCP Internal Medicine; Visit Provider Internal Medicine | DX: Z12.31 Encounter for screening mammogram for malignant neoplasm of breast (principal) | CPT/HCPCS: 77063; 77067 ==

== ENCOUNTER 2024-03-15 12:49 | Outpatient (AMB) | payer OTHER, SELFPAY ==
--- NOTE | 2024-03-15 12:56 | MHC.PC.OV ---
Vital Signs 03/15/24 12:58 Height 5 ft 8 in Weight 246 lb BMI 37.4 BP 120/74 Blood Pressure Location Lt brachial Position Sitting Pulse 95 Pulse Source Pulse Oximeter Temp 97.1 F Temp Source Oral Pulse Oximetry (%) 96 Oxygen Delivery Method Room Air Intake Visit Reasons: Hyperlipidemia, TOMAS Intake Note: Patient is here to follow up on HLD, TOMAS. Government Relations Analyst Required: Yes Government Relations Analyst Language: Qc Chemist Name: Mohan ([id number]) Information Interpreted: non-clinical & clinical Territory Sales Professional: Not Required per policy Accompanied by: Self / Same As Patient Allergies No Known Allergies [No Known Allergies*] Allergy (Verified 03/16/24 02:07) Medication List - Last Reconciled 03/15/24 by RANJIT Panchal atorvastatin 20 mg PO DAILY 90 days calcium citrate-vitamin D3 315 mg-6.25 mcg (250 unit) (Citracal + Vitamin D Maximum) 1 tab PO DAILY cholecalciferol (vitamin D3) 1,250 mcg PO QWEEK clobetasol 0.05% 1 appl topical BID [CONTOUR Memory Foam Leg Pillow As directed] diclofenac sodium 1% (Voltaren Arthritis Pain) 2 grams topical QID PRN 30 days duloxetine 30 mg PO .qhs duloxetine (Cymbalta) 60 mg PO QAM gabapentin 400 mg PO BID ibuprofen 800 mg PO TID PRN [INCONTINENCE PADS 90 day supply Use 4 to 5 pads a day as directed] magnesium oxide 400 mg PO DAILY 30 days polyethylene glycol 3350 (Miralax) 17 grams PO DAILY tizanidine 4 mg PO Q8H PRN Tobacco use date assessed: 03/15/24 Dental Screening Dental Screen Date: 03/15/24 Did you have a dental visit in the last 12 months?: Yes Did you have a dental problem in the last 6 months where you did not have access to dental care?: No Was dental information given to patient?: Patient has dentist HPI Hyperlipidemia, TOMAS HPI Details The patient is a 58 year old female with significant past medical history of osteoarthritis, lumbar degenerative disc disease, vitamin-D deficiency, urinary incontinence and pure hypercholesterolemia Patient is here for follow up appointment-she was unable to complete follow up lab Encouraged to get these done as soon as possible. The patient mostly Irish-speaking an engineering documentation specialist was used via iPad. She reports low back pain that goes down to both anterior thighs. Reports that the pain goes down to her buttocks as well. She denies numbness or tingling, denies incontinence of bowel or bladder Reports that the pain is hard to describe but it is a strong pain at times She is requesting lidocaine patch, reports that her daughter bought it for her couple weeks ago and it helps Reports that it does not take the pain away completely but it does help a lot Patient is wondering if there is any medication she could take for her back pain During the review of the patient medications, ibuprofen 800 mg p.r.n. was noted The patient reports that she does not have anymore of this medication so she has not been taking it Will refill medication-to assist in her lower back pain He reports that the back pain has been going on for 3 weeks continuously-denies any injury Reports some days are worse than some-stiffness in the morning makes it hard to dress. straight leg raise: 35 degree in both legs resulted to pain 5-6/10 in lower back only. Reports that is her social services specialist told her to request grab bars for her bed. CPAP: Reports stop wearing it and the insurance took it away. Reports that she always feels tired-but sleeps the hours she supposed to sleep Encouraged patient to follow up with sleep medicine to see if she could a better fitting mask She reports that they are all the same and she is not interested at this time Reports that it was too much, she gets up 4-5 times in the night use the bathroom reports bladder pressure-denies burning with urination, discharge Denies any chance of STDs. Denies fever or chills Reports increased frequency and urgency ---urinalysis was added to the patient labs encouraged to complete as soon as possible. We will also refer the patient to Urology. She would also like to get her flu shot today PFSH Medical History Urinary incontinence Obesity (BMI 30-39.9) Vitamin D deficiency Lumbar degenerative disc disease Osteoarthritis Pure hypercholesterolemia Fibromyalgia Surgical History Hx of varicose veins H/O LEEP History of tubal ligation Family History Father Medical history unknown Mother Stroke Diabetes Hypertension CVD (cardiovascular disease) Brother Substance abuse Maternal Uncle Throat cancer Social History Household Members: None Housing: Apartment Are you a primary plant health care technician to a significant other at home: No Do you presently have visiting nurse or other home services: No 75 years or older and lives alone: No Alcohol intake: never Patient Tobacco Use Status: Never used Tobacco e-Cigarette/Vaping Use: Never Used Second Hand Smoke Exposure: No service: No Current occupational status: disabled Current occupational exposures/hazards: No Cognitive needs: No Hearing needs: No Vision needs: Yes (Glasses) Questionnaire PHQ-9 Over the last 2 weeks, how often have you been bothered by any of the following problems? 1. Little interest or pleasure in doing things: not at all 2. Feeling down, depressed, or hopeless: not at all 3. Trouble falling or staying asleep, or sleeping too much: not at all 4. Feeling tired or having little energy: not at all 5. Poor appetite or overeating: not at all 6. Feeling bad about yourself - or that you are a failure or have let yourself or your family down: not at all 7. Trouble concentrating on things, such as reading the newspaper or watching television: not at all 8. Moving or speaking so slowly that other people could have noticed. Or the opposite - being so fidgety or restless that you have been moving around a lot more than usual: not at all 9. Thoughts that you would be better off or of hurting yourself in some way: not at all Total score: 0 Depression Screening Interpretation: Negative Depression Screening Done: Yes 75791 - PHQ-9 Billing: Yes Source: Developed by Drs. Dax Armas, Jovita Ozuna, Alex Aceves and colleagues, with an educational roscoe from [employer]. Thrive Questionnaire Date Thrive assessed: 03/15/24 I am a: Patient What is your living situation today?: I have a steady place to live Within the past 12 months, did the food you bought not last and you didn't have the money to get more?: Never true Within the past 12 months, did you worry whether your food would run out before you got money to buy more?: Never true Do you have trouble paying for medicines?: No Do you have trouble getting transportation to medical appointments?: No Do you have trouble paying your heating and electricity bill?: No Do you have trouble taking care of your child, family member or friend?: No Do you have trouble with day-to-day activities such as bathing, preparing meals, shopping, managing finances, etc.?: No Are you currently unemployed and looking for a job?: No Are you interested in more education?: No Please select the resources that you would like help with: None Currently or been in a relationship where the following occur: No concerns reported THRIVE Score: 0 AUDIT C Alcohol Use Questionnaire (AUDIT-C) 1. How often do you have a drink containing alcohol?: Never Total Score: 0 Score Reviewed/Action Taken: Yes CAM-7 AMB Questionnaire CAM-7 Date CAM - 7 assessed: 03/15/24 Feeling nervous, anxious, or on edge: 1 = Several days Not being able to stop or control worryin = Several days Worrying too much about different things: 1 = Several days Trouble relaxin = More than half the days Being so restless that it is hard to sit still: 2 = More than half the days Becoming easily annoyed or irritable: 2 = More than half the days Feeling afraid as if something awful might happen: 0 = Not at all Total CAM-7 score (0-4 normal; 5-9 mild; 10-14 moderate; 15-21 severe): 9 Source: Developed by Drs. Dax Armas, Jovita Ozuna, Alex Aceves and colleagues, with an educational roscoe from [employer]. CAM-7 Assessment Billing CAM-7 Assessment Tool: CAM-7 Assessment 12166 Review of Systems Const Details: Denies chills, reports increased tiredness, Denies fever(s), Denies headache(s) and Denies weakness HEENT Denies change in vision, Denies dizziness, Denies headache(s), Denies hearing loss, Denies nasal congestion, Denies sinus pain, Denies sinus pressure and Denies sore throat Card Denies chest pain, Denies lightheadedness, Denies dyspnea and Denies other (palpitations) Resp Denies cough, Denies dyspnea and Denies wheezing GI Denies abdominal pain, Denies melena, Denies hematochezia, Denies change in bowel habits, Denies dyspepsia and Denies nausea, reports lower abdominal pressure Denies hematuria and Denies dysuria, reports urinary frequency/urgency Musc Denies abnormal gait, reports lower back pain that radiates to the anterior thighs and buttocks, Denies numbness and Denies tingling Skin/Breast Denies rash, Denies unusual bruising and Denies wounds Neuro Denies abnormal gait, Denies dizziness, Denies headache(s), Denies memory loss, Denies numbness, Denies Sensory deficit (Neuro), Denies tingling and Denies weakness Psych Denies anxiety, Denies depression and Denies memory loss Endo Denies cold intolerance, reports increased tiredness, Denies heat intolerance, Denies polydipsia and Denies polyuria Ray/Lymph Denies easy bleeding and Denies easy bruising Aller/Immun Denies wheezing Physical exam (Primary Care) Vital Signs: Last Vital Signs Temp 97.1 F 03/15/24 12:58 Pulse 95 03/15/24 12:58 BP 120/74 03/15/24 12:58 Pulse Ox 96 03/15/24 12:58 Oxygen Delivery Method Room Air 03/15/24 12:58 BMI result Body Mass Index 37.4 Tobacco/Smoking Status: Tobacco use Status Tobacco use date assessed 03/15/24 03/15/24 13:07 Patient Tobacco Use Status Never used Tobacco 03/15/24 12:56 e-Cigarette/Vaping Use Never Used 03/15/24 12:56 PHQ-9: PHQ-9 Score PHQ-9: Total score 0 03/15/24 13:31 Depression Screening Interpretation: Negative Thrive Assessment: Date of Thrive Assessment Date Thrive assessed 03/15/24 03/15/24 13:07 Currently or been in a relationship where the following occur: No concerns reported Const Other: General: no acute distress, well developed, alert and awake Nutritional Appearance: well nourished Orientation/consciousness: patient oriented x3 HENMT Head: Yes normocephalic and Yes atraumatic Ears: hearing grossly normal bilaterally and TM's normal bilaterally Eyes Pupils: Equal, round and reactive pupils present and Pupil accommodation reflex normal EOM: EOMs intact bilaterally Neck Neck: Yes normal visual inspection Thyroid: Thyroid normal Lymphatic: no lymphadenopathy noted Chest Chest palpation & inspection: normal inspection of the chest Resp Effort & Inspection: normal respiratory effort Auscultation: clear to auscultation bilaterally Cardio Rate: regular rate Rhythm: regular rhythm Heart sounds: S1 normal heart sound present, S2 normal heart sound present, no gallops, no murmurs and no rubs GI Palpation (GI): The abdomen soft to palpation, nontender, +mild pressure to suprapubic region No hepatosplenomegaly present and No Rebound tenderness present Auscultation: normal bowel sounds General: Yes no CVA tenderness Back/Spine/Pelvis Back: no CVA tenderness Cervical Spine: cervical ROM normal and No Cervical spine tenderness Thoracic/Lumbar Spine: thoraco-lumbar ROM normal, No pain with thoraco-lumbar ROM, No thoracic spinal tenderness and No lumbar spinal tenderness other: straight leg raise to 35 degree in both leg with 5-6/10 pain in lower back only Skin General: warm and dry. Normal skin color. Normal skin turgor Lesions: no lesions Rashes: no rashes Trauma: no lacerations or abrasions Wounds: no wounds Nails: normal Neuro General: patient oriented x3, gait normal Cranial nerves: Yes Equal, round and reactive pupils present Cognition (Neuro): normal cognition Gait exam (Neuro): Normal gait present Extrem General: Yes normal to inspection, No edema and No calf tenderness Psych Appearance: grossly normal Affect: normal affect Attitude: cooperative Thought process: Normal thought process present Office Procedures Flu Questionnaire Does the patient have a severe egg allergy?: No Does the patient have severe life threatening allergies?: No Does the patient have a fever or illness today?: No Has the patient ever had Guillain-Republic Syndrome?: No Has the patient ever had any past reaction to a flu shot?: No Immunizations Fluarix Triv [id number] (PF) 45 mcg (15 mcg x 3)/0.5 mL IM syringe Performing Provider: RANJIT Panchal [place] [facility] [facility] Administered by: Ingrid Amador LPN on 03/15/24 13:30 Dose Route Admin Location Dispensed Lot Number Expiration Date [facility][NOTE 3] Coin Box Collector 0.5 mL IM Left Deltoid 0.5 mL [id number] 08/27/24 21471-333-69 [employer] VIS Given Date VIS Provided VIS Publication Date 03/15/24 Single Vaccine 20 Eligibility Eligibility Date Funding Source Not [facility] Eligible 03/15/24 Private Coding Level of Care Code Est Pt Level 4 (99088) Diagnoses Pure hypercholesterolemia E78.00 Acute bilateral low back pain with bilateral sciatica M54.42; M54.41 Back pain laterality: bilateral Chronicity: acute Sciatica laterality: bilateral sciatica Sciatica presence: with sciatica Degeneration of intervertebral disc of lumbar region, unspecified whether pain present M51.369 Disc-related pain type: unspecified whether pain present Urinary urgency R39.15 Urine frequency R35.0 TOMAS (obstructive sleep apnea) G47.33 Other fatigue R53.83 Fatigue type: other Fibromyalgia M79.7 Chronic pain of left knee M25.562; G89.29 Chronicity: chronic Vitamin D deficiency E55.9 Additional Codes CAM-7 Assessment Billing - CAM-7 Assessment Tool: CAM-7 Assessment 52595 ([id number]) PHQ-9 - 29181 - PHQ-9 Billing: Yes ([id number]) Time Spent (min) 34 Assessment & Plan Assessment & Plan (1) Pure hypercholesterolemia: Code(s): E78.00 - Pure hypercholesterolemia, unspecified Category: Medical Plan: Patient was unable to complete scheduled lab for this appointment Patient was encouraged to get blood work done as soon as possible Reinforced a diet low cholesterol/activity as tolerated Continues atorvastatin 20 mg daily (2) Low back pain: Code(s): M54.50 - Low back pain, unspecified Category: Medical Qualifiers: Back pain laterality: bilateral Chronicity: acute Sciatica laterality: bilateral sciatica Sciatica presence: with sciatica Qualified Code(s): M54.42 - Lumbago with sciatica, left side; M54.41 - Lumbago with sciatica, right side Plan: The patient was ordered a lumbar x-ray, lidocaine patches was ordered: one to each side of lower back. Continues ibuprofen 800mg TID prn, duloxetine 60 mg daily, and gabapentin 400mg BID. (3) Lumbar degenerative disc disease: Code(s): M51.36 - Other intervertebral disc degeneration, lumbar region Category: Medical Qualifiers: Disc-related pain type: unspecified whether pain present Qualified Code(s): M51.369 - Other intervertebral disc degeneration, lumbar region without mention of lumbar back pain or lower extremity pain Plan: X-ray of the lumbar spine ordered Continue duloxetine 60mg daily, ibuprofen 800 mg p.o. t.i.d. p.r.n., tizanidine 4 mg q8hr prn reinforced weight and activity restriction (4) Urinary urgency: Code(s): R39.15 - Urgency of urination Category: Medical Plan: Urinalysis added to scheduled blood work Encouraged patient to get this done as soon as possible Referred to urology (5) Urine frequency: Code(s): R35.0 - Frequency of micturition Category: Medical Plan: Same as above (6) TOMAS (obstructive sleep apnea): Comment: Mild degree of sleep apnea. The AHI was 5/hr. oxygen asher was 83%. Code(s): G47.33 - Obstructive sleep apnea (adult) (pediatric) Category: Medical Plan: Reports that her CPAP machine was taken away due to poor compliance Encouraged to follow-up with sleep medicine for a more comfortable mask to improve compliance Patient declines at this time (7) Fatigue: Code(s): R53.83 - Other fatigue Category: Medical Qualifiers: Fatigue type: other Qualified Code(s): R53.83 - Other fatigue Plan: Multifactorial: The patient stopped wearing recommended CPAP for TOMAS, and the patient is getting UP a 4-5 times a night to use the bathroom. The patient was referred to Urology, urinalysis was ordered and the patient was encouraged to follow up with sleep medicine (8) Fibromyalgia: Code(s): M79.7 - Fibromyalgia Category: Medical Plan: Patient is encouraged again to stay active and exercise regularly to help manage her fibromyalgia symptoms Continue Duloxetine 60 mg QD; is also on Gabapentin and Tizanidine to help manage her symptoms Follow up with rheumatology as scheduled (9) Left knee pain: Code(s): M25.562 - Pain in left knee Category: Medical Qualifiers: Chronicity: chronic Qualified Code(s): M25.562 - Pain in left knee; G89.29 - Other chronic pain Plan: Stable: Reports that her left knee has been doing okay continues using the diclofenac sodium 1% 2 grams topical QID (10) Vitamin D deficiency: Code(s): E55.9 - Vitamin D deficiency, unspecified Category: Medical Plan: Continue vitamin D3 1250 mcg weekly Encouraged to get scheduled blood work done soon as possible Plan As requested, flu vaccine given to patient today Follow up with PCP in 4 months Orders: Orders UA CC w/rflx Micro + Cult 03/15/24 R35.0 - Frequency of micturition Influenza [id number] Immunization 03/15/24 Z23 - Encounter for immunization XR lumbar spine 2-3V 03/15/24 M54.50 - Low back pain, unspecified Complete Blood Count Auto Diff 4 Months E55.9 - Vitamin D deficiency, unspecified, E66.9 - Obesity, unspecified, E78.00 - Pure hypercholesterolemia, unspecified, G47.33 - Obstructive sleep apnea (adult) (pediatric), M19.91 - Primary osteoarthritis, unspecified site, M25.562 - Pain in left knee, M51.36 - Other intervertebral disc degeneration, lumbar region, M54.50 - Low back pain, unspecified, M79.7 - Fibromyalgia, R53.83 - Other fatigue Comprehensive Dwight. Panel Fast 4 Months E55.9 - Vitamin D deficiency, unspecified, E66.9 - Obesity, unspecified, E78.00 - Pure hypercholesterolemia, unspecified, G47.33 - Obstructive sleep apnea (adult) (pediatric), M19.91 - Primary osteoarthritis, unspecified site, M25.562 - Pain in left knee, M51.36 - Other intervertebral disc degeneration, lumbar region, M54.50 - Low back pain, unspecified, M79.7 - Fibromyalgia, R53.83 - Other fatigue Vitamin D 25-OH Total 4 Months E55.9 - Vitamin D deficiency, unspecified, E66.9 - Obesity, unspecified, E78.00 - Pure hypercholesterolemia, unspecified, G47.33 - Obstructive sleep apnea (adult) (pediatric), M19.91 - Primary osteoarthritis, unspecified site, M25.562 - Pain in left knee, M51.36 - Other intervertebral disc degeneration, lumbar region, M54.50 - Low back pain, unspecified, M79.7 - Fibromyalgia, R53.83 - Other fatigue Lipid Panel 4 Months E55.9 - Vitamin D deficiency, unspecified, E66.9 - Obesity, unspecified, E78.00 - Pure hypercholesterolemia, unspecified, G47.33 - Obstructive sleep apnea (adult) (pediatric), M19.91 - Primary osteoarthritis, unspecified site, M25.562 - Pain in left knee, M51.36 - Other intervertebral disc degeneration, lumbar region, M54.50 - Low back pain, unspecified, M79.7 - Fibromyalgia, R53.83 - Other fatigue UA CC w/rflx Micro + Cult 4 Months E55.9 - Vitamin D deficiency, unspecified, E66.9 - Obesity, unspecified, E78.00 - Pure hypercholesterolemia, unspecified, G47.33 - Obstructive sleep apnea (adult) (pediatric), M19.91 - Primary osteoarthritis, unspecified site, M25.562 - Pain in left knee, M51.36 - Other intervertebral disc degeneration, lumbar region, M54.50 - Low back pain, unspecified, M79.7 - Fibromyalgia, R53.83 - Other fatigue Referrals Urology Referral R35.0 - Frequency of micturition, R39.15 - Urgency of urination Medications: New lidocaine 5% leave on most painful area for up to 12 hrs 2 patches topical DAILY 30 ea 3RF [Bed grab bars] As directed 1 ea 0RF M54.50 - Low back pain, unspecified
[2024-03-15 12:58] VITALS: BP 120/74; PULSE 95; TEMP 36.2; O2SAT 96; BMI 37.4
== END 2024-03-15 13:41 | disposition home or self-care (01) ==
PROVIDERS: PCP Internal Medicine
DX: Z23 Encounter for immunization (principal)

== ENCOUNTER → 2024-03-15 12:49 | Outpatient (BNVA) | payer OTHER, SELFPAY | PROVIDERS: PCP Internal Medicine | DX: Z23 Encounter for immunization (principal); E78.00 Pure hypercholesterolemia, unspecified; M54.42 Lumbago with sciatica, left side; M54.41 Lumbago with sciatica, right side; R39.15 Urgency of urination; R35.0 Frequency of micturition; G47.33 Obstructive sleep apnea (adult) (pediatric); R53.83 Other fatigue; M79.7 Fibromyalgia; M25.562 Pain in left knee; G89.29 Other chronic pain; E55.9 Vitamin D deficiency, unspecified | CPT/HCPCS: 90471; 90656; 96127; 99212 ==

== ENCOUNTER 2024-04-03 09:03 | Outpatient (REF) | payer OTHER, SELFPAY ==
[2024-04-03 09:20] LABS: MANUAL DIFF FLAG NO
--- OUTSIDE RECORDS SUMMARY | 2024-04-03 09:24 | XMS_ITS | Clinical Summary ---
Author Organization [facility] ity Address [address] [place] [address] Care Team Providers Care Field Logistics Coordinator Name Role Phone Charlie Ty MD Primary Care Provider Family History Medical History Relation Name Comments Asthma Mother Diabetes Mother Glaucoma Mother Lung disease Mother Other: bowel problems Mother Other: heart disease Mother Other: high blood pressure Mother Pneumonia Mother Seizures Mother Stroke Mother Relation Name Status Comments Mother Social History Tobacco Use Types Packs/Day Years Used Date Smoking Tobacco: Never Smokeless Tobacco: Never Alcohol Use Standard Drinks/Week Comments No 0 (1 standard drink = 0.6 oz pur e alcohol) Sex and Gender Information Value Date Recorded Sex Assigned at Not on file Gender Identity Not on file Sexual Orientation Not on file Obstetrics History Plan of Treatment Health Maintenance Due Date Last Done Comments Breast Cancer Screening 1965 DTaP,Tdap,and Td Vaccines (1 - Tdap) 08/04/1983 Hepatitis B Vaccines (1 of 3 - 19+ 3-dose series) 08/04/1983 Cervical Cancer Screening: P ap Smear 1985 Zoster Vaccines (1 of 2) 2014 COVID-19 Vaccine (2023-2 5 season) 2023 Influenza Vaccine (#1) 2023 RSV Immunization Patients 60 + Years Old (1 - 1-dose 75+ series) 08/04/2039 HIB Vaccines Aged Out No longer eligi ble based on patient's age to complete this topic HPV Vaccines Aged Out No longer eligi ble based on patient's age to complete this topic Hepatitis A Vaccines Aged Out No long er eligible based on patient's age to complete this topic IPV Vaccines Aged Out No longer eligi ble based on patient's age to complete this topic MMR Vaccines Aged Out No longer eligi ble based on patient's age to complete this topic Meningococcal ACWY Vaccine Aged Out N o longer eligible based on patient's age to complete this topic Pneumococcal Vaccine: Pediat rics (0 to 5 Years) and At-Risk Patients (6 to 64 Years) Aged Out No longer eligible b ased on patient's age to complete this topic RSV Immunization Patients Un maya 20 months Aged Out No longer eligible b ased on patient's age to complete this topic Varicella Vaccines Aged Out No longer eligible based on patient's age to complete this topic Care Teams Field Logistics Coordinator Relationship Specialty Start Date End Date Charlie Ty MD [address] [place] [address] Dr [address] [place], [place] PCP - General Internal Medicine 01/07/16
--- OUTSIDE RECORDS SUMMARY | 2024-04-03 09:25 | XMS_ITS | Encounter Summary ---
Author Organization [employer] [facility] Address [address] [place] [address] [address] [place] [address] Care Team Providers Care Seals Engraver Name Role Phone Unavailable Primary Care Provider Unavailabl e Encounter Details Date Type Department Care Team (Latest Contact Info) Description 03/27/2018 Abstract C CONVERSIONS Dental, Provider, DDS Social History Tobacco Use Types Packs/Day Years Used Date Smoking Tobacco: Never Assessed Comments Unknown Sex and Gender Information Value Date Recorded Sex Assigned at Female 12/28/2021 10:25 AM EDT Legal Sex Female 10:25 AM EDT Gender Identity Female 12/28/2021 10:25 AM EDT Sexual Orientation Straight 09/13/2022 1: 09 PM EDT documented as of this encounter Plan of Treatment Not on file documented as of this encounter Visit Diagnoses Not on filedocumented in this encounter
--- OUTSIDE RECORDS SUMMARY | 2024-04-03 09:25 | XMS_ITS | Clinical Summary ---
Author Organization [employer] Address [address] [facility] 7t [place] [address] Care Team Providers Care Oil Field Operator Name Role Phone Unavailable Primary Care Provider Unavailabl e Allergies No known active allergies Medications acetaminophen (Mapap Arthritis Pain) 650 MG ER tablet Take 2 tablets by mouth every 8 (eight) hours. 10/22/2013 Active atorvastatin (Lipitor) 10 MG tablet Take 1 tablet by mouth at bed time. Active ibuprofen 800 MG tablet Take 1 tablet by mouth every 8 (eight) hours. 10/22/2013 Active methocarbamol (Robaxin) 750 MG tablet take 1 tablet by oral route 3 times every day 04/11/2020 Active tiZANidine (Zanaflex) 4 MG capsule Take 1 capsule by mouth every 8 (eight) hours. 10/22/2013 Active zolpidem (Ambien) 10 MG tablet Take 1 tablet by mouth at bed time. 10/22/2013 Active sertraline (Zoloft) 100 MG tablet Take 1 tablet by mouth at bed time. 10/22/2013 Active gabapentin (Neurontin) 300 MG/6ML solution Take 1 capsule by mouth every 8 (eight) hours. Active Social History Tobacco Use Types Packs/Day Years Used Date Smoking Tobacco: Never Passive Smoke Exposure: Never Smokeless Tobacco: Never Tobacco Cessation:Counseling Given: Not Answered Alcohol Use Standard Drinks/Week Comments Never 0 (1 standard drink = 0.6 oz pur e alcohol) Comments Unknown Sex and Gender Information Value Date Recorded Sex Assigned at Female 12/28/2021 10:25 AM EDT Legal Sex Female 10:25 AM EDT Gender Identity Female 12/28/2021 10:25 AM EDT Sexual Orientation Straight 09/13/2022 1: 09 PM EDT Last Filed Vital Signs Vital Sign Reading Time Taken Comments Blood Pressure 118/80 09/13/2022 1:07 PM EDT Pulse 78 09/13/2022 1:07 PM EDT Temperature - - Respiratory Rate - - Oxygen Saturation - - Inhaled Oxygen Concentration - - Weight - - Height - - Body Mass Index - - Plan of Treatment Health Maintenance Due Date Last Done Comments CT Colonography 1964 Colonoscopy 1964 Colorectal Cancer Screening 1964 Depression Screening 1964 FIT DNA/Cologuard 1964 FIT 1964 FOBT 1964 HIV Screening 1964 SDOH Screening 1964 Sigmoidoscopy 1964 Alcohol/Substance Use Screening 1976 Hepatitis C Screening 1982 Hepatitis B Vaccines (1 of 3 - 19+ 3-dose series) 08/04/1983 Pap Smear 1985 Cervical Cancer Screening 1994 HPV/Cotest 1994 Mammogram 2004 Pneumococcal Vaccine: 50+ Years (1 of 1 - PCV) 2014 Zoster Vaccines (1 of 2) 2014 Dental Oral Exam 03/17/2023 09/13/2022, 07/2021, 10/27/2018, Additional history exists Dental Prophylaxis 03/17/2023 09/13/2022, 0 03/05/2021, 10/27/2018, Additional history exists Dental X-Ray: Full Mouth 04/12/2023 04/11/2020, 05/ Tobacco Screening 09/14/2023 09/13/2022 Dental X-Ray: Bitewings 09/15/2023 09/14/19 23, 03/05/2021, 10/27/2018, Additional history exists COVID-19 Vaccine (2023- season) 2023 03/31/2021, 03/10/2021 Influenza Vaccine (#1) 2023 2, 01/15/2020, 12/29/2018, Additional history exists DTaP/Tdap/Td Vaccines (2 - Td or Tdap) 06/16/2031 06/15/2021 RSV Patients and Patients Aged 60 years or older (1 - 1-dose 75+ series) 08/04/2039 HIB [...] patient's age to complete this topic Meningococcal Vaccine Aged Out No james gogo eligible based on patient's age to complete this topic RSV under 20 months Aged Out No longe r eligible based on patient's age to complete this topic Rotavirus Vaccines Aged Out No longer eligible based on patient's age to complete this topic Procedures Procedure Name Priority Date/Time Associated Diagnosis Comments PERIODIC ORAL EVALUATION - ESTABLISHED PATIENT Routine 09/13/2022 2:00 PM EDT PROPHYLAXIS - ADULT Routine 09/13/2022 1 :00 PM EDT BITEWINGS - 2 RADIOGRAPHIC IMAGES Routine 09/13/2022 1:00 PM EDT PANORAMIC RADIOGRAPHIC IMAGE Routine 04/11/2020 12:00 AM EST from Last 3 Months or Most Recently Relevant to Health Maintenance Insurance DENTAL [facility]
--- OUTSIDE RECORDS SUMMARY | 2024-04-03 09:25 | XMS_ITS | Encounter Summary ---
Author Organization [employer] [facility] Address [address] [place] [address] 7 [place] [address] Care Team Providers Care Histology Teacher Name Role Phone Unavailable Primary Care Provider Unavailabl e Encounter Details Date Type Department Care Team (Latest Contact Info) Description 03/05/2021 Abstract [facility] CONVERSIONS Dental, Provider, DDS Social History Tobacco [...]
[2024-04-03 09:55] LABS: Basophils Percent Auto 0.6 % (0-2); Eosinophils Absolute Auto 0.1 X10*3/uL (0.0-0.4); Eosinophils Percent Auto 2.9 % (0-4); Hematocrit 40.9 % (37.0-47.0); Hemoglobin 13.9 g/dl (12.0-16.0); Imm Gran Abs Auto 0.01 X10*3/uL (0.00-0.03); Imm Gran Pct Auto 0.2 % (0.0-0.4); Lymphocytes Absolute Auto 0.9 X10*3/uL (1.2-4.9); Lymphocytes Percent Auto 18.8 % (20-40); Mean Corpuscular Hemoglobin 30.3 pg (27.0-33.0); Mean Corpuscular Volume 89.1 fL (80.0-98.0); Monocytes Absolute Auto 0.5 X10*3/uL (0.1-1.2); Monocytes Percent Auto 9.5 % (2-11); Neutrophils Absolute Auto 3.3 x10*3/uL (2.0-8.3); Platelet Count 220 X10*3/uL (160-400); Red Blood Count 4.59 X10*6/uL (4.20-5.50); Red Cell Distribution Width 11.9 % (11.0-16.0); White Blood Count 4.9 X10*3/uL (4.8-10.8)
[2024-04-03 10:12] LABS: Appearance Urine Turbid; Color Urine Yellow; Glucose Urine UA Negative (Negative); Leukocyte Esterase Urine Small (1+) (Negative); Nitrite Urine Negative (Negative); PH 8.5 (5.0-9.0); UMIC TRIGGER UACC YES; Urine Blood Negative (Negative); Urine Ketones Negative (Negative); Urine Protein Trace mg/dL (Neg-Trace)
[2024-04-03 10:24] LABS: Bacteria Urine 1+ (None Seen); Hyaline Casts Urine 0-2 /LPF (0-2); UACC Culture Trigger YES; WBC Urine 0-5 /HPF (0-5)
[2024-04-03 10:39] LABS: Alanine Aminotransferase 24 U/L (0-31); Albumin Level 4.6 g/dL (3.5-5.0); Alkaline Phosphatase 55 U/L (39-117); Anion Gap 15 (12-20); Aspartate Amino Transferase 23 U/L (5-31); Blood Urea Nitrogen 12 mg/dL (9-16); Calcium 9.9 mg/dL (8.4-10.2); Carbon Dioxide 29 mmol/L (22-29); Chloride 104 mmol/L (96-108); Cholesterol 149 mg/dL (<200); Estimated Glomerular Filt Rate > 60; Glucose Fasting 91 mg/dL (60-99); HDL Cholesterol 46 mg/dL (>40); LDL Cholesterol Calculated 82 mg/dL (<100); Potassium 3.9 mmol/L (3.3-5.1); Sodium 144 mmol/L (135-145); Total Protein 7.5 g/dL (6.5-8.0); Triglycerides 105 mg/dL (<150)
== END 2024-04-03 09:04 | disposition home or self-care (01) ==
LOC: HO.LAB 09:03
PROVIDERS: PCP Internal Medicine; Visit Provider Internal Medicine
DX: D64.9 Anemia, unspecified (principal); E78.00 Pure hypercholesterolemia, unspecified; R35.0 Frequency of micturition
CPT/HCPCS: 36415; 80053; 80061; 81001; 81003; 85025; 87086

== ENCOUNTER 2024-05-10 12:58 | Outpatient (AMB) | payer OTHER, SELFPAY ==
--- NOTE | 2024-05-10 13:06 | A.OFFVIS_ITS ---
Intake Visit Reasons: urinary frequency Intake Note: New Patient presents for initial visit for urinary frequency Urology Medications: none Blood Thinner: none PVR: 0ml's Cv Tech Required: Yes Cv Tech Services: Cv Tech Present Cv Tech Name: [id number] Accompanied by: Self / Same As Patient Allergies No Known Allergies [No Known Allergies*] Allergy (Verified 05/10/24 13:40) Medication List - Last Reconciled 05/10/24 by COLIN Lopez atorvastatin 20 mg PO DAILY 90 days [Bed grab bars As directed] calcium citrate-vitamin D3 315 mg-6.25 mcg (250 unit) (Citracal + Vitamin D Maximum) 1 tab PO DAILY cholecalciferol (vitamin D3) 1,250 mcg PO QWEEK clobetasol 0.05% 1 appl topical BID [CONTOUR Memory Foam Leg Pillow As directed] diclofenac sodium 1% (Voltaren Arthritis Pain) 2 grams topical QID PRN 30 days duloxetine 30 mg PO .qhs duloxetine (Cymbalta) 60 mg PO QAM gabapentin 400 mg PO BID ibuprofen 800 mg PO TID PRN [INCONTINENCE PADS 90 day supply Use 4 to 5 pads a day as directed] lidocaine 5% 2 patches topical DAILY magnesium oxide 400 mg PO DAILY 30 days polyethylene glycol 3350 (Miralax) 17 grams PO DAILY tizanidine 4 mg PO Q8H PRN HPI Comments Details: Niki is a very pleasant 58-year-old Estonian-speaking female patient of Dr. Ty. She has a past medical history of obesity, vitamin-D deficiency, lumbar degenerative disc disease, osteoarthritis, hypercholesteremia, and fibromyalgia. She presents to the office today as a new patient for ongoing lower urinary tract symptoms she has been experiencing. In discussion with the patient today she notes over the last few months she continues to experience urinary urgency and urinary frequency. She also reports having a longstanding history of stress incontinence. She reports having followed up with her PCP at which time recommendations were made for urology referral for further assessment evaluation. In office urinalysis results reviewed with the patient today. PVR 0 mL. We discussed at length potential causes for lower urinary tract symptoms patient was experiencing as well as further treatment options and risks and benefits of these treatment options. We discussed obtaining retroperitoneal ultrasound for further assessment evaluation. We discussed bladder triggers/ irritants. She denies hematuria, dysuria, foul smelling urine, changes to urinary stream, flank pain, fever, and or chills. She otherwise offers no other issues or concerns at this time. [facility] Medical History Urinary incontinence Obesity (BMI 30-39.9) Vitamin D deficiency Lumbar degenerative disc disease Osteoarthritis Pure hypercholesterolemia Fibromyalgia Surgical History Hx of varicose veins H/O LEEP History of tubal ligation Family History Father Medical history unknown Mother Stroke Diabetes Hypertension CVD (cardiovascular disease) Brother Substance abuse Maternal Uncle Throat cancer Social History Household Members: None Housing: Apartment Are you a primary campground caretaker to a significant other at home: No Do you presently have visiting nurse or other home services: No 75 years or older and lives alone: No Alcohol intake: never Patient Tobacco Use Status: Never used Tobacco e-Cigarette/Vaping Use: Never Used Second Hand Smoke Exposure: No service: No Current occupational status: disabled Current occupational exposures/hazards: No Cognitive needs: No Hearing needs: No Vision needs: Yes (Glasses) Review of Systems Const All systems reviewed & are unremarkable except as noted in HPI and below Physical Exam Const General: cooperative, healthy appearing, comfortable, no acute distress, well developed, alert and awake Nutritional Appearance: overweight Orientation/consciousness: patient oriented x3 Limitations: no limitations HEENT Head: Yes normal to inspection, Yes normocephalic and Yes atraumatic Ears: hearing grossly normal bilaterally Eyes General: appearance normal, both eyes and all related structures Neck Neck: Yes normal visual inspection and Yes trachea midline Chest Chest palpation & inspection: normal inspection of the chest Resp Effort & Inspection: normal respiratory effort and able to speak in complete sentences Cardio Rate: regular rate GI Inspection: Yes normal to inspection General: Yes no CVA tenderness Back/Spine/Pelvis Back: no CVA tenderness Skin General skin exam: no rashes or lesions noted Neuro General: patient oriented x3 Extrem General: Yes normal to inspection Psych Appearance: grossly normal and well kempt Mental Status: mental status grossly normal Speech and movement: Normal speech and movement present and Clear speech present Affect: normal affect Attitude: cooperative Thought process: Normal thought process present Thought content: Normal thought content present Insight: Fair insight present (Psych) Judgement: Fair judgement present (Psych) Office Procedures Post Void Residual Post Residual Void Post Void Residual (PVR): 0 [id number]-[id number] Void Residual by ultrasound Results AMB Urinalysis, Automated UA Leukoctes 0 Nuris/uL Last Edit by Jose Alberto Pardo on 05/10/24 13:20 UA Nitrite Last Edit by Jose Alberto Pardo on 05/10/24 13:20 UA Urobilinogen 0.2 mg/dL Last Edit by Germanchrisparminder Pardo on 05/10/24 13:20 UA Protein 15 mg/dL Last Edit by Jose Alberto Pardo on 05/10/24 13:20 UA pH 6.5 Last Edit by Jose Alberto Pardo on 05/10/24 13:20 UA Blood 0 Ramiro/uL Last Edit by Germanchrisparminder Pardo on 05/10/24 13:20 UA Specific [place] 1.015 Last Edit by Germanchrisparminder Pardo on 05/10/24 13:20 UA Ketone Last Edit by Germanchrisparminder Pardo on 05/10/24 13:20 UA Bilirubin 0 mg/dL Last Edit by Germanchrisparminder Pardo on 05/10/24 13:20 UA Glucose 0 mg/dL Last Edit by TrovaGeneparminder Pardo on 05/10/24 13:20 Results Reviewed Results Reviewed: Laboratory Last Values Urine pH (Auto) 6.5 05/10/24 13:08 Specific [place] (Auto) 1.015 05/10/24 13:08 Urine Protein (Auto) 15 mg/dL 05/10/24 13:08 Glucose (UA)(Auto) 0 mg/dL 05/10/24 13:08 Urine Blood (Auto) 0 Ramiro/uL 05/10/24 13:08 Urine Bilirubin (Auto) 0 mg/dL 05/10/24 13:08 Urine Urobilinogen (Auto) 0.2 mg/dL 05/10/24 13:08 Leukocyte Esterase (Auto) 0 Nuris/uL 05/10/24 13:08 Assessment & Plan Assessment & Plan (1) Urine frequency: Code(s): R35.0 - Frequency of micturition Category: Medical (2) Urinary urgency: Code(s): R39.15 - Urgency of urination Category: Medical (3) Stress incontinence: Code(s): N39.3 - Stress incontinence (female) (male) Category: Medical Plan In office urinalysis results reviewed the patient today; as noted above. PVR 0 mL. We discussed at length potential causes of lower urinary tract symptoms patient was experiencing as well as further treatment options and risks and benefits of these treatment options. We discussed bladder triggers/ irritants. Will obtain retroperitoneal ultrasound for further assessment evaluation. Follow-up in 1-3 months with imaging and PVR; or sooner with any issues, concerns, and or questions. Orders: Orders AMB Urinalysis Automated Today Z13.9 - Encounter for screening, unspecified AMB Post Void Residual by ultrasound Today R39.15 - Urgency of urination US renal BI Today R35.0 - Frequency of micturition, R39.15 - Urgency of urination Patient Instructions: The patient had an opportunity to ask questions regarding the treatment plan. All questions were answered. Physical exam, labs, and imaging were discussed and reviewed in detail. As well as risks, benefits, and discussion of treatment choices. No major barriers to understanding were identified. The patient expressed understanding and agreement with the above treatment plan. The patient was made aware they should contact our office by phone for worsening of their current condition, the appearance of new symptoms, or with any questions or concerns. Compliance is encouraged with any medications and follow up testing that is ordered. It is a privilege to be allowed the opportunity to participate in? your urological care.? Again, if you have any questions or concerns If you have any questions or concerns please do not hesitate to contact me. The office is [phone]. This note is constructed using voice recognition software. While every effort has been made to ensure accuracy brush maker errors may have been included. Yours sincerely, COLIN Lopez Coding Level of Care Code New Pt Level 3 (82924) Diagnoses Urine frequency R35.0 Urinary urgency R39.15 Stress incontinence N39.3 CPT Codes Post Residual Void - PVR CPT Code: 28725-Anea Void Residual by ultrasound ([id number])
--- OUTSIDE RECORDS SUMMARY | 2024-05-10 16:20 | XMS_ITS | Encounter Summary ---
Author Organization [employer] [facility] Address [address] [place] [address] [address]t [place] [address] Care Team Providers Care Convex Grinder Operator Name Role Phone Unavailable Primary Care [...]
--- OUTSIDE RECORDS SUMMARY | 2024-05-10 16:20 | XMS_ITS | Clinical Summary ---
Author Organization [facility] Address [address] [place] [address] Care Team Providers Care Program Paraprofessional Name Role Phone Charlie Ty MD Primary Care Provider [phone] Family History Medical History Relation Name Comments [...] Recorded Sex Assigned at Not on file Legal Sex Female 8:58 AM EST Gender Identity Not on file Sexual Orientation Not on file Obstetrics History Plan of Treatment Health Maintenance Due Date Last Done Comments Breast Cancer Screening 1964 DTaP,Tdap,and Td Vaccines (1 - Tdap) 08/04/1983 Hepatitis B Vaccines (1 of 3 - 19+ 3-dose series) 08/04/1983 Cervical Cancer Screening: P ap Smear 1985 Pneumococcal Vaccine: 50+ Ye ars (1 of 1 - PCV) 2014 Zoster Vaccines (1 of 2) 2014 COVID-19 [...] patient's age to complete this topic Meningococcal B Vacine Aged Out No lo nger eligible based on patient's age to complete [...] age to complete this topic Care Teams Program Paraprofessional Relationship Specialty Start Date End Date Charlie Ty MD [address] [place] [address] Dr [address] [place], [place] PCP - General Internal Medicine 01/07/16
--- OUTSIDE RECORDS SUMMARY | 2024-05-10 16:20 | XMS_ITS | Clinical Summary ---
Author Organization [employer] Address [address] [facility] 7t [place] [address] Care Team Providers Care Systems Qa Analyst Name Role Phone Unavailable Primary Care Provider [...] Recently Relevant to Health Maintenance Insurance [facility]
--- OUTSIDE RECORDS SUMMARY | 2024-05-10 16:20 | XMS_ITS | Encounter Summary ---
Author Organization [employer] [facility] Address [address] [place] [address] [address]t [place] [address] Care Team Providers Care Head Transfer Clerk Name Role Phone Unavailable Primary Care Provider [...]
== END 2024-05-10 13:45 | disposition home or self-care (01) ==
LOC: HO.HUSH 12:59
PROVIDERS: PCP Internal Medicine; Visit Provider Nurse Practitioner Family
DX: R35.0 Frequency of micturition (principal); R39.15 Urgency of urination; N39.3 Stress incontinence (female) (male); Z13.9 Encounter for screening, unspecified
CPT/HCPCS: 99203

== ENCOUNTER → 2024-05-10 12:58 | Outpatient (BNVA) | payer OTHER, SELFPAY | PROVIDERS: PCP Internal Medicine; Visit Provider Nurse Practitioner Family | DX: R35.0 Frequency of micturition (principal); R39.15 Urgency of urination; N39.3 Stress incontinence (female) (male) | CPT/HCPCS: 51798; 81003; 99202 ==

== ENCOUNTER 2024-07-16 12:58 | Outpatient (AMB) | payer OTHER, SELFPAY ==
--- OUTSIDE RECORDS SUMMARY | 2024-07-16 13:06 | XMS_ITS | Clinical Summary ---
Author Organization [employer] Address [address] [facility] [address] [place] [address] Care Team Providers Care Financial Recruiter Name Role Phone Unavailable Primary Care Provider [...] Mass Index - - Plan of Treatment Upcoming Encounters Date Type Department Care Team (Late st Contact Info) Description 01/15/2025 3:00 PM EST Office Visit [facility]ULT [facility] [address] [place] [address] Emmanuelle, Dulcem Aria [address] [place] [address] Health Maintenance Due Date Last Done Comments [...] 03/05/2021, 10/27/2018, Additional history exists COVID-19 Vaccine (3 - 2023- season) 2023 03/31/2021, 03/10/2021 DTaP/Tdap/Td Vaccines (2 - Td or Tdap) 06/16/2031 06/15/2021 RSV Patients and Patients Aged 60 years or older (1 - 1-dose 75+ series) 08/04/2039 Influenza Vaccine Completed 03/15/2024, , 01/15/2020, Additional history exists HIB Vaccines Aged Out No longer eligi [...] age to complete this topic Meningococcal B Vaccine Aged Out No l onger eligible based on patient's age to complete [...] Recently Relevant to Health Maintenance Insurance DENTAL [facility]
--- OUTSIDE RECORDS SUMMARY | 2024-07-16 13:06 | XMS_ITS | Encounter Summary ---
Author Organization [employer] [facility] Address [address] [facility] [address] [place] [address] Care Team Providers Care Web Site Admin Name Role Phone Unavailable Primary Care Provider Unavailabl e Encounter Details Date Type Department Care Team (Latest Contact Info) Description 03/27/2018 Abstract [facility] CONVERSIONS Dental, Provider, DDS Social History Tobacco Use Types Packs/Day Years Used Date Smoking Tobacco: Never Assessed Comments Unknown Sex and Gender Information Value Date Recorded Sex Assigned at Female 12/28/2021 10:25 AM EDT Legal Sex Female 10:25 AM EDT Gender Identity Female 12/28/2021 10:25 AM EDT Sexual Orientation Straight 09/13/2022 1: 09 PM EDT documented as of this encounter Plan of Treatment Upcoming Encounters Date Type Department Care Team (Late st Contact Info) Description 01/15/2025 3:00 PM EST Office Visit [facility] ADULT DENTAL [address] [place] [address] Dulce Maria Handley [address] [place] [address] documented as of this encounter Visit Diagnoses Not on filedocumented in this encounter
--- OUTSIDE RECORDS SUMMARY | 2024-07-16 13:06 | XMS_ITS | Encounter Summary ---
Author Organization [employer] [facility] Address [address] [facility] 7t [place] [address] Care Team Providers Care Spindle Carver Name Role Phone Unavailable Primary Care Provider Unavailabl e Encounter Details Date Type Department Care Team (Latest Contact Info) Description 03/05/2021 Abstract [facility] CONVERSIONS Dental, Provider, DDS Social History Tobacco [...] 01/15/2025 3:00 PM EST Office Visit [facility] ADULT DENTAL [address] [place] [address] Hugh Handleyaris [address] [place] [address] documented as of this encounter Visit Diagnoses Not on filedocumented in this encounter
--- OUTSIDE RECORDS SUMMARY | 2024-07-16 13:06 | XMS_ITS | Clinical Summary ---
Author Organization [facility] Address [address] [place] [address] Care Team Providers Care Front End Wheel Loader Operator Name Role Phone Charlie Ty MD Primary Care Provider [phone] Family History Medical History Relation Name Comments [...] Vaccine (2023-2 5 season) 2023 Influenza Vaccine (Season Ended) 2024 RSV Immunization Adult Patie nts (1 - 1-dose 75+ series) 08/04/2039 HIB [...] age to complete this topic Care Teams Front End Wheel Loader Operator Relationship Specialty Start Date End Date Charlie Ty MD [address] [place] [address] Dr [address] HORACE Gonzalez PCP - General Internal Medicine 01/07/16
[2024-07-16 13:19] VITALS: BP 126/80; PULSE 68; O2SAT 98; BMI 36.5
--- NOTE | 2024-07-16 13:19 | MHC.PC.OV ---
Vital Signs 07/16/24 13:19 Height 5 ft 8 in Weight 240 lb 6 oz BMI 36.5 BP 126/80 Blood Pressure Location Lt brachial Position Sitting Pulse 68 Pulse Source Pulse Oximeter Pulse Oximetry (%) 98 Oxygen Delivery Method Room Air Intake Visit Reasons: 4 month f/u Digital Watch Assembler Required: No Accompanied by: Self / Same As Patient Allergies No Known Allergies [No Known Allergies*] Allergy (Verified 07/16/24 13:52) Medication List - Last Reconciled 07/16/24 by Charlie Ty MD atorvastatin 20 mg PO DAILY 90 days [Bed grab bars As directed] calcium citrate-vitamin D3 315 mg-6.25 mcg (250 unit) (Citracal + Vitamin D Maximum) 1 tab PO DAILY cholecalciferol (vitamin D3) 1,250 mcg PO QWEEK clobetasol 0.05% 1 appl topical BID [CONTOUR Memory Foam Leg Pillow As directed] diclofenac sodium 1% (Voltaren Arthritis Pain) 2 grams topical QID PRN 30 days duloxetine 30 mg PO .qhs duloxetine (Cymbalta) 60 mg PO QAM gabapentin 400 mg PO BID ibuprofen 800 mg PO TID PRN [INCONTINENCE PADS 90 day supply Use 4 to 5 pads a day as directed] lidocaine 5% 2 patches topical DAILY magnesium oxide 400 mg PO DAILY 30 days polyethylene glycol 3350 (Miralax) 17 grams PO DAILY tizanidine 4 mg PO Q8H PRN Tobacco use date assessed: 07/16/24 Dental Screening Dental Screen Date: 07/16/24 Did you have a dental visit in the last 12 months?: No Did you have a dental problem in the last 6 months where you did not have access to dental care?: No Was dental information given to patient?: Patient has dentist HPI 4 month f/u HPI Details Patient comes in today for her follow up visit States that she feels okay except for increased allergy symptoms lately - runny nose, sneezing She denies any fever or sore throat She denies any headaches or dizziness Denies any chest pains, no SOB No nausea/vomiting, no abdominal pain No change in bowel habits noted She was not able to get her follow up labs done prior to her appointment today - states that she was not aware she had to get any more labs done since she had them done a couple of months ago Adds that she would like to have BMD done to check for osteoporosis - states that she has never had one done in the past [facility] Medical History (Updated 07/16/24 @ 14:13 by Charlie Ty MD) Allergic rhinitis Urinary incontinence Obesity (BMI 30-39.9) Vitamin D deficiency Lumbar degenerative disc disease Osteoarthritis Pure hypercholesterolemia Fibromyalgia Surgical History Hx of varicose veins H/O LEEP History of tubal ligation Family History Father Medical history unknown Mother Stroke Diabetes Hypertension CVD (cardiovascular disease) Brother Substance abuse Maternal Uncle Throat cancer Social History Household Members: None Housing: Apartment Are you a primary career services assistant to a significant other at home: No Do you presently have visiting nurse or other home services: No 75 years or older and lives alone: No Alcohol intake: never Patient Tobacco Use Status: Never used Tobacco e-Cigarette/Vaping Use: Never Used Second Hand Smoke Exposure: No service: No Current occupational status: disabled Current occupational exposures/hazards: No Cognitive needs: No Hearing needs: No Vision needs: Yes (Glasses) Questionnaire PHQ-9 Over the last 2 weeks, how often have you been bothered by any of the following problems? 1. Little interest or pleasure in doing things: several days 2. Feeling down, depressed, or hopeless: several days 3. Trouble falling or staying asleep, or sleeping too much: several days 4. Feeling tired or having little energy: several days 5. Poor appetite or overeating: not at all 6. Feeling bad about yourself - or that you are a failure or have let yourself or your family down: not at all 7. Trouble concentrating on things, such as reading the newspaper or watching television: several days 8. Moving or speaking so slowly that other people could have noticed. Or the opposite - being so fidgety or restless that you have been moving around a lot more than usual: several days 9. Thoughts that you would be better off or of hurting yourself in some way: not at all Total score: 6 Depression Screening Interpretation: Positive Depression Screening Follow-up: Existing condition and In treatment Depression Screening Done: Yes 94373 - PHQ-9 Billing: Yes Source: Developed by Drs. Dax Armas, Jovita Ozuna, Alex Aceves and colleagues, with an educational roscoe from [employer]. Thrive Questionnaire Date Thrive assessed: 07/16/24 I am a: Patient What is your living situation today?: I have a steady place to live Within the past 12 months, did the food you bought not last and you didn't have the money to get more?: I choose not to answer this question Within the past 12 months, did you worry whether your food would run out before you got money to buy more?: I choose not to answer this question Do you have trouble paying for medicines?: No Do you have trouble getting transportation to medical appointments?: No Do you have trouble paying your heating and electricity bill?: No Do you have trouble taking care of your child, family member or friend?: I choose not to answer this question Do you have trouble with day-to-day activities such as bathing, preparing meals, shopping, managing finances, etc.?: No Are you currently unemployed and looking for a job?: I choose not to answer this question Are you interested in more education?: I choose not to answer this question Please select the resources that you would like help with: None Currently or been in a relationship where the following occur: I choose not to answer THRIVE Score: 0 AUDIT C Alcohol Use Questionnaire (AUDIT-C) 1. How often do you have a drink containing alcohol?: Never 3. How often do you have six or more drinks on one occasion?: Never Total Score: 0 Score Reviewed/Action Taken: Yes CAM-7 AMB Questionnaire CAM-7 Date CAM - 7 assessed: 07/16/24 Feeling nervous, anxious, or on edge: 0 = Not at all Not being able to stop or control worryin = Not at all Worrying too much about different things: 1 = Several days Trouble relaxin = Several days Being so restless that it is hard to sit still: 0 = Not at all Becoming easily annoyed or irritable: 1 = Several days Feeling afraid as if something awful might happen: 0 = Not at all Total CAM-7 score (0-4 normal; 5-9 mild; 10-14 moderate; 15-21 severe): 3 Source: Developed by Drs. Dax Armas, Jovita Ozuna, Alex Aceves and colleagues, with an educational roscoe from [employer]. Review of Systems Const Denies chills, Denies fatigue, Denies fever(s) and Denies headache(s) ENT Denies dysphagia, Denies dizziness, Denies otalgia, Denies headache(s), Denies neck pain, Denies odynophagia, Denies sore throat and Denies throat swelling Card Denies chest pain, Denies palpitations and Denies dyspnea Resp Denies chest congestion, Denies cough and Denies dyspnea GI Denies abdominal pain, Denies constipation, Denies dysphagia, Denies heartburn, Denies diarrhea, Denies nausea, Denies odynophagia and Denies vomiting Reports nocturia, Denies dysuria, Reports urinary incontinence and Denies urinary urgency Musc Reports back pain (on and off, mostly over the upper back behind the shoulders), Reports myalgias (recurrent, especially behind both shoulders), Reports arthralgias (on and off involving multiple joints, including left knee) and Denies neck pain Skin/Breast Denies rash Neuro Denies dizziness and Denies headache(s) Psych Denies anxiety Endo Denies fatigue and Denies palpitations Ray/Lymph Denies easy bruising Aller/Immun Reports seasonal rhinorrhea and Denies throat swelling Physical exam (Primary Care) Vital Signs: Last Vital Signs Pulse 68 07/16/24 13:19 BP 126/80 07/16/24 13:19 Pulse Ox 98 07/16/24 13:19 Oxygen Delivery Method Room Air 07/16/24 13:19 BMI result Body Mass Index 36.5 Tobacco/Smoking Status: Tobacco use Status Tobacco use date assessed 07/16/24 07/16/24 13:28 Patient Tobacco Use Status Never used Tobacco 07/16/24 13:28 e-Cigarette/Vaping Use Never Used 07/16/24 13:28 PHQ-9: PHQ-9 Score PHQ-9: Total score 6 07/16/24 13:28 Depression Screening Interpretation: Positive Depression Screening Follow-up: Existing condition and In treatment Thrive Assessment: Date of Thrive Assessment Date Thrive assessed 07/16/24 07/16/24 13:28 Currently or been in a relationship where the following occur: I choose not to answer Const General: no acute distress and alert HENMT Ears: TM's normal bilaterally and EAC's normal Throat: Yes posterior oropharynx normal and Yes tonsils normal (no TP congestion noted) Neck Neck: Yes no lymphadenopathy and Yes tender (mild - over the cervical spine and paraspinal areas bilaterally) Thyroid: Thyroid normal Resp Auscultation: clear to auscultation bilaterally, no rales and no wheezes Cardio Rate: regular rate Rhythm: regular rhythm Heart sounds: no murmurs GI Palpation (GI): Soft to palpation and nontender Auscultation: normal bowel sounds General: Yes no CVA tenderness Back/Spine/Pelvis Back: no CVA tenderness Cervical Spine: cervical muscular tenderness Thoracic/Lumbar Spine: paraspinal muscle tenderness bilaterally (over the cervical and thoracolumbar spine (diffuse)) and lumbar spinal tenderness Skin Rashes: no rashes Neuro General: no focal motor deficits Extrem General: Yes no clubbing, cyanosis or edema Right upper extremity: shoulder/upper arm Details: tenderness (diffusely over the scapular area) Left upper extremity: shoulder/upper arm Details: tenderness (diffusely over the scapular areas) Left lower extremity: knee Details: tenderness Coding Level of Care Code Est Pt Level 4 (28615) Diagnoses Pure hypercholesterolemia E78.00 Degeneration of intervertebral disc of lumbar region, unspecified whether pain present M51.369 Disc-related pain type: unspecified whether pain present Primary osteoarthritis, unspecified site M19.91 Osteoarthritis location: unspecified site Osteoarthritis type: primary Fibromyalgia M79.7 TOMAS (obstructive sleep apnea) G47.33 Vitamin D deficiency E55.9 Seasonal allergic rhinitis due to pollen J30.1 Allergic rhinitis trigger: pollen Allergic rhinitis seasonality: seasonal Urinary incontinence, unspecified type R32 Urinary Incontinence type: unspecified incontinence Obesity (BMI 30-39.9) E66.9 Osteoporosis screening Z13.820 Additional Codes PHQ-9 - 71968 - PHQ-9 Billing: Yes ([id number]) Assessment & Plan Assessment & Plan (1) Pure hypercholesterolemia: Code(s): E78.00 - Pure hypercholesterolemia, unspecified Category: Medical Plan: Patient was not able to get her follow up labs done prior to her appointment today Reinforced low-cholesterol diet Continue Atorvastatin 10 mg QD Will recheck her labs and fasting lipids in 4 months for follow-up (2) Lumbar degenerative disc disease: Code(s): M51.36 - Other intervertebral disc degeneration, lumbar region Category: Medical Qualifiers: Disc-related pain type: unspecified whether pain present Qualified Code(s): M51.369 - Other intervertebral disc degeneration, lumbar region without mention of lumbar back pain or lower extremity pain Plan: Reinforced activity and weight lifting restrictions Continue Gabapentin 400 mg BID and Tizanidine 4 mg Q 8 hours as needed (3) Osteoarthritis: Code(s): M19.90 - Unspecified osteoarthritis, unspecified site Category: Medical Qualifiers: Osteoarthritis location: unspecified site Osteoarthritis type: primary Qualified Code(s): M19.91 - Primary osteoarthritis, unspecified site Plan: Involving multiple joints Repeat x-rays of the left knee done in August 2021 confirmed (+) OA changes in her left knee Lab work ups done a couple of years ago were negative for any inflammatory arthritis or condition Continue Ibuprofen 800 mg 3 times a day as needed and Voltaren gel 1% apply 1 to 2 times a day as needed Patient also takes Tylenol 500 mg every 6-8 hours additionally as needed for increased pain Follow up with rheumatology as scheduled (4) Fibromyalgia: Code(s): M79.7 - Fibromyalgia Category: Medical Plan: Patient is again encouraged again to stay active and exercise regularly to help manage her fibromyalgia symptoms Continue Duloxetine 60 mg QD; is also on Gabapentin and Tizanidine to help manage her symptoms Follow up with rheumatology as scheduled (5) TOMAS (obstructive sleep apnea): Comment: Mild degree of sleep apnea. The AHI was 5/hr. oxygen asher was 83%. Code(s): G47.33 - Obstructive sleep apnea (adult) (pediatric) Category: Medical Plan: Her home sleep study done in November 2022 apparently came out with mild TOMAS, with oxygen asher at 83% She has a CPAP device and settings are recommended at APAP 5-15 cmH2O but patient admits to using her device only some of the time as she finds it uncomfortable to sleep at night with something on her face Have again stressed to her the importance of compliance with CPAP therapy and of treating TOMAS to prevent significant health issues in the future, especially heart disease and heart failure Follow up with Sleep Medicine as scheduled (6) Vitamin D deficiency: Code(s): E55.9 - Vitamin D deficiency, unspecified Category: Medical Plan: Continue Vitamin D2 30666 units once a week (7) Allergic rhinitis: Code(s): J30.9 - Allergic rhinitis, unspecified Category: Medical Qualifiers: Allergic rhinitis trigger: pollen Allergic rhinitis seasonality: seasonal Qualified Code(s): J30.1 - Allergic rhinitis due to pollen Plan: Will start her on Loratadine 10 mg QD PRN (8) Urinary incontinence: Code(s): R32 - Unspecified urinary incontinence Category: Medical Qualifiers: Urinary Incontinence type: unspecified incontinence Qualified Code(s): R32 - Unspecified urinary incontinence Plan: Patient uses incontinence pads PRN Follow up with urology as scheduled (9) Obesity (BMI 30-39.9): Code(s): E66.9 - Obesity, unspecified Category: Medical Plan: Reinforced diet/exercise as tolerated/lose weight (10) Osteoporosis screening: Code(s): Z13.820 - Encounter for screening for osteoporosis Category: Medical Plan: Per request, will send patient for BMD for osteoporosis screening - this will be her index screen as she has never had BMD done in the past Patient states that she has been in menopause for several years now (>5 years) Plan Follow up in 4 months Orders: Orders TSH reflex Free T4 4 Months E78.00 - Pure hypercholesterolemia, unspecified UA CC w/rflx Micro + Cult 4 Months R30.0 - Dysuria Vitamin B12 and Folate 4 Months E53.8 - Deficiency of other specified B group vitamins Complete Blood Count Auto Diff 4 Months D64.9 - Anemia, unspecified Comprehensive [place]. Panel Fast 4 Months E78.00 - Pure hypercholesterolemia, unspecified Lipid Panel 4 Months E78.00 - Pure hypercholesterolemia, unspecified Vitamin D 25-OH Total 4 Months E55.9 - Vitamin D deficiency, unspecified XR DEXA axial skeleton Today Z78.0 - Asymptomatic menopausal state Medications: New loratadine 10 mg PO DAILY 90 days PRN 90 tabs 3RF allergy symptoms J30.9 - Allergic rhinitis, unspecified
== END 2024-07-16 14:05 | disposition home or self-care (01) ==
LOC: HO.HMCH 12:59
PROVIDERS: PCP Internal Medicine; Visit Provider Internal Medicine
DX: E78.00 Pure hypercholesterolemia, unspecified (principal); M51.369 Other intervertebral disc degeneration, lumbar region without mention of lumbar back pain or lower extremity pain; E66.9 Obesity, unspecified; Z68.36 Body mass index [BMI] 36.0-36.9, adult; M19.91 Primary osteoarthritis, unspecified site; M79.7 Fibromyalgia; G47.33 Obstructive sleep apnea (adult) (pediatric); E55.9 Vitamin D deficiency, unspecified; J30.1 Allergic rhinitis due to pollen; R32 Unspecified urinary incontinence; Z13.820 Encounter for screening for osteoporosis

== ENCOUNTER → 2024-07-16 12:58 | Outpatient (BNVA) | payer OTHER, SELFPAY | PROVIDERS: PCP Internal Medicine; Visit Provider Internal Medicine | DX: M51.369 Other intervertebral disc degeneration, lumbar region without mention of lumbar back pain or lower extremity pain (principal); E78.00 Pure hypercholesterolemia, unspecified; M15.9 Polyosteoarthritis, unspecified; M79.7 Fibromyalgia; G47.33 Obstructive sleep apnea (adult) (pediatric); E55.9 Vitamin D deficiency, unspecified; J30.1 Allergic rhinitis due to pollen; R32 Unspecified urinary incontinence; E66.9 Obesity, unspecified; Z68.36 Body mass index [BMI] 36.0-36.9, adult; Z79.899 Other long term (current) drug therapy | CPT/HCPCS: 96127; 99212 ==

== ENCOUNTER 2024-07-30 11:20 | Outpatient (REF) | payer OTHER, SELFPAY ==
--- NOTE | ~2024-07-30 | US_ITS ---
CLINICAL HISTORY: R39.15 - Urgency of urination US Renal Comparison: None Findings: Right kidney normal size and echotexture, 12.9 cm length. Left kidney normal size and echotexture, 13.0 cm length. No collecting system dilatation of either kidney. Normal color Doppler. IMPRESSION: 1. Normal kidneys. This document has been electronically signed by: Pal Munroe MD on 07/31/2024 08:33:46
--- OUTSIDE RECORDS SUMMARY | 2024-07-30 12:39 | XMS_ITS | Clinical Summary ---
Author Organization [facility] Address [address] [place] [address] Care Team Providers Care Scrap Dealer Name Role Phone Charlie Ty MD Primary Care Provider [phone] Family History Medical History Relation Name Comments [...] age to complete this topic Care Teams Scrap Dealer Relationship Specialty Start Date End Date Charlie Ty MD [address] [place] [address] [address] HORACE Gonzalez PCP - General Internal Medicine 01/07/16
== END 2024-07-30 11:21 | disposition home or self-care (01) ==
LOC: HO.US 11:20
PROVIDERS: PCP Internal Medicine; Visit Provider Nurse Practitioner Family
DX: R39.15 Urgency of urination (principal); R35.0 Frequency of micturition
CPT/HCPCS: 76775

== ENCOUNTER → 2024-07-30 11:23 | Outpatient (BNV) | payer OTHER, SELFPAY | PROVIDERS: PCP Internal Medicine; Visit Provider Radiology Vascular & Interventional Radiology | DX: R39.15 Urgency of urination (principal) | CPT/HCPCS: 76775 ==

== ENCOUNTER 2024-08-13 13:29 | Outpatient (AMB) | payer OTHER, SELFPAY ==
--- NOTE | 2024-08-13 13:35 | A.OFFVIS_ITS ---
Intake Visit Reasons: 3m/US/PVR(set) Intake Note: Patient presents for follow up visit for urinary frequency, inc ontinence,urgency Urology Medications: none Blood Thinner: none PVR: 0 Wire Machine Cutter Required: Yes Wire Machine Cutter Services: Wire Machine Cutter Present Wire Machine Cutter Name: Staci [email or web address] Accompanied by: Self / Same As Patient Allergies No Known Allergies [No Known Allergies*] Allergy (Verified 08/13/24 14:06) Medication List - Last Reconciled 08/13/24 by COLIN Lopez atorvastatin 20 mg PO DAILY 90 days [Bed grab bars As directed] calcium citrate-vitamin D3 315 mg-6.25 mcg (250 unit) (Citracal + Vitamin D Maximum) 1 tab PO DAILY cholecalciferol (vitamin D3) 1,250 mcg PO QWEEK clobetasol 0.05% 1 appl topical BID [CONTOUR Memory Foam Leg Pillow As directed] diclofenac sodium 1% (Voltaren Arthritis Pain) 2 grams topical QID PRN 30 days duloxetine 30 mg PO .qhs duloxetine (Cymbalta) 60 mg PO QAM gabapentin 400 mg PO BID ibuprofen 800 mg PO TID PRN [INCONTINENCE PADS 90 day supply Use 4 to 5 pads a day as directed] lidocaine 5% 2 patches topical DAILY loratadine 10 mg PO DAILY PRN 90 days magnesium oxide 400 mg PO DAILY 30 days polyethylene glycol 3350 (Miralax) 17 grams PO DAILY tizanidine 4 mg PO Q8H PRN HPI Comments Details: Niki is a very pleasant 59-year-old Wolof-speaking female patient of Dr. Ty. She has a past medical history of obesity, vitamin-D deficiency, lumbar degenerative disc disease, osteoarthritis, hypercholesteremia, and fibromyalgia. She presents to the office today for follow-up. Of note, patient was seen approximately 3 months ago as a new patient for ongoing lower urinary tract symptoms she had been experiencing at which time a renal ultrasound was ordered for further assessment evaluation and discussion was had regarding further treatment options and risks and benefits of these treatment options. Recent renal imaging 08/22 bilateral kidneys are normal in size and echotexture. No collecting system dilatation of either kidney. Normal color Doppler. Normal renal ultrasound per radiology report. She does continue to report episodes of urinary frequency and nocturia however discusses she feels she is self managing symptoms and does not wish to undergo further treatment options at this time. In office urinalysis results reviewed with the patient today. PVR 0ml's. We discussed at length potential causes for lower urinary tract symptoms patient w as experiencing as well as further treatment options and risks and benefits of these treatment options. We discussed bladder triggers/ irritants. She denies hematuria, dysuria, foul smelling urine, changes to urinary stream, flank pain, fever, and or chills. Will continue with surveillance monitoring at this time per patient request. She otherwise offers no other issues or concerns at this time. [facility] Medical History Allergic rhinitis Urinary incontinence Obesity (BMI 30-39.9) Vitamin D deficiency Lumbar degenerative disc disease Osteoarthritis Pure hypercholesterolemia Fibromyalgia Surgical History Hx of varicose veins H/O LEEP History of tubal ligation Family History Father Medical history unknown Mother Stroke Diabetes Hypertension CVD (cardiovascular disease) Brother Substance abuse Maternal Uncle Throat cancer Social History Household Members: None Housing: Apartment Are you a primary child care to a significant other at home: No Do you presently have visiting nurse or other home services: No 75 years or older and lives alone: No Alcohol intake: never Patient Tobacco Use Status: Never used Tobacco e-Cigarette/Vaping Use: Never Used Second Hand Smoke Exposure: No service: No Current occupational status: disabled Current occupational exposures/hazards: No Cognitive needs: No Hearing needs: No Vision needs: Yes (Glasses) Review of Systems Const All systems reviewed & are unremarkable except as noted in HPI and below Physical Exam Const General: cooperative, healthy appearing, comfortable, no acute distress, well developed, alert and awake Nutritional Appearance: overweight Orientation/consciousness: patient oriented x3 Limitations: no limitations HEENT Head: Yes normal to inspection, Yes normocephalic and Yes atraumatic Ears: hearing grossly normal bilaterally Eyes General: appearance normal, both eyes and all related structures Neck Neck: Yes normal visual inspection and Yes trachea midline Chest Chest palpation & inspection: normal inspection of the chest Resp Effort & Inspection: normal respiratory effort and able to speak in complete sentences Cardio Rate: regular rate GI Inspection: Yes normal to inspection General: Yes no CVA tenderness Back/Spine/Pelvis Back: no CVA tenderness Skin General skin exam: no rashes or lesions noted Neuro General: patient oriented x3 Extrem General: Yes normal to inspection Psych Appearance: grossly normal and well kempt Mental Status: mental status grossly normal Speech and movement: Normal speech and movement present and Clear speech present Affect: normal affect Attitude: cooperative Thought process: Normal thought process present Thought content: Normal thought content present Insight: Fair insight present (Psych) Judgement: Fair judgement present (Psych) Office Procedures Post Void Residual Post Residual Void Post Void Residual (PVR): 0 [id number] Void Residual by ultrasound Results AMB Urinalysis, Automated UA Leukoctes 0 Nursi/uL Last Edit by Rachel Mishra MA on 08/13/24 14:02 UA Nitrite Negative Last Edit by Rachel Mishra MA on 08/13/24 14:02 UA Urobilinogen 3.5 mg/dL Last Edit by Rachel Mishra MA on 08/13/24 14:02 UA Protein 0 mg/dL Last Edit by Rachel Mishra MA on 08/13/24 14:02 UA pH 8.0 Last Edit by Rachel Mishra MA on 08/13/24 14:02 UA Blood 0 Armiro/uL Last Edit by Rachel Mishra MA on 08/13/24 14:02 UA Specific [place] 1.015 Last Edit by Rachel Mishra MA on 08/13/24 14:02 UA Ketone Negative Last Edit by Rachel Mishra MA on 08/13/24 14:02 UA Bilirubin 0 mg/dL Last Edit by Rachel Mishra MA on 08/13/24 14:02 UA Glucose 0 mg/dL Last Edit by Rachel Mishra MA on 08/13/24 14:02 Results Reviewed Results Reviewed: Laboratory Last Values Urine pH (Auto) 8.0 08/13/24 14:00 Specific [place] (Auto) 1.015 08/13/24 14:00 Urine Protein (Auto) 0 mg/dL 08/13/24 14:00 Glucose (UA)(Auto) 0 mg/dL 08/13/24 14:00 Urine Ketones (Auto) Negative 08/13/24 14:00 Urine Blood (Auto) 0 Ramiro/uL 08/13/24 14:00 Urine Nitrite (Auto) Negative 08/13/24 14:00 Urine Bilirubin (Auto) 0 mg/dL 08/13/24 14:00 Urine Urobilinogen (Auto) 3.5 mg/dL 08/13/24 14:00 Leukocyte Esterase (Auto) 0 Nuris/uL 08/13/24 14:00 Date of Service: 07/30/24 Procedure(s): US renal BI Findings: Right kidney normal size and echotexture, 12.9 cm length. Left kidney normal size and echotexture, 13.0 cm length. No collecting system dilatation of either kidney. Normal color Doppler. IMPRESSION: 1. Normal kidneys. Assessment & Plan Assessment & Plan (1) Stress incontinence: Code(s): N39.3 - Stress incontinence (female) (male) Category: Medical (2) Urinary urgency: Code(s): R39.15 - Urgency of urination Category: Medical (3) Urine frequency: Code(s): R35.0 - Frequency of micturition Category: Medical (4) Nocturia: Code(s): R35.1 - Nocturia Category: Medical Plan In office urinalysis results reviewed with the patient today; as noted above. PVR 0 mL. Recent renal imaging results reviewed with the patient today; as noted above. We discussed at length potential causes for lower urinary tract symptoms patient is experiencing as well as further treatment options and risks and benefits of these treatment options. We will continue with surveillance monitoring. We discussed bladder triggers and irritants. We also discussed the importance of limiting fluids 2-3 hours prior to bed to decrease episodes of nocturia. Follow-up in 3-6 months with PVR; or sooner with any issues, concerns, and or questions. Orders: Orders AMB Urinalysis Automated 08/13/24 Z13.9 - Encounter for screening, unspecified AMB Post Void Residual by ultrasound 08/13/24 N39.3 - Stress incontinence (female) (male) Patient Instructions: The patient had an opportunity to ask questions regarding the treatment plan. All questions were answered. Physical exam, labs, and imaging were discussed and reviewed in detail. As well as risks, benefits, and discussion of treatment choices. No major barriers to understanding were identified. The patient expressed understanding and agreement with the above treatment plan. The patient was made aware they should contact our office by phone for worsening of their current condition, the appearance of new symptoms, or with any questions or concerns. Compliance is encouraged with any medications and follow up testing that is ordered. It is a privilege to be allowed the opportunity to participate in? your urological care.? Again, if you have any questions or concerns If you have any questions or concerns please do not hesitate to contact me. The office is [phone]. This note is constructed using voice recognition software. While every effort has been made to ensure accuracy outside plant engineer errors may have been included. Yours sincerely, COLIN Lopez Coding Level of Care Code Est Pt Level 3 (76280) Diagnoses Stress incontinence N39.3 Urinary urgency R39.15 Urine frequency R35.0 Nocturia R35.1 CPT Codes Post Residual Void - PVR CPT Code: 13001-Wasw Void Residual by ultrasound ([id number])
--- OUTSIDE RECORDS SUMMARY | 2024-08-13 14:55 | XMS_ITS | Clinical Summary ---
Author Organization [facility] Address [address] [place] [address] Care Team Providers Care Interactive Digital Media Specialist Name Role Phone Charlie Ty MD Primary Care Provider [phone] Family History Medical History Relation Name Comments [...] DTaP,Tdap,and Td Vaccines (1 - Tdap) 08/04/1983 Cervical Cancer Screening: P ap Smear 1985 Pneumococcal Vaccine: 50+ Ye ars (1 of 1 - PCV) 2014 Zoster Vaccines (1 of 2) 2014 COVID-19 Vaccine ( - 2023-2 5 season) 2023 Influenza Vaccine (Season Ended) [...] patient's age to complete this topic Hepatitis B Vaccines Aged Out No long er eligible [...] age to complete this topic Care Teams Interactive Digital Media Specialist Relationship Specialty Start Date End Date Charlie Ty MD [address] [place] [address] Dr [address] [place], [place] PCP - General Internal Medicine 01/07/16
== END 2024-08-13 14:18 | disposition home or self-care (01) ==
LOC: HO.HUSH 13:29
PROVIDERS: PCP Internal Medicine; Visit Provider Nurse Practitioner Family
DX: N39.3 Stress incontinence (female) (male) (principal); R39.15 Urgency of urination; R35.0 Frequency of micturition; R35.1 Nocturia
CPT/HCPCS: 99213

== ENCOUNTER → 2024-08-13 13:29 | Outpatient (BNVA) | payer OTHER, SELFPAY | PROVIDERS: PCP Internal Medicine; Visit Provider Nurse Practitioner Family | DX: N39.3 Stress incontinence (female) (male) (principal); R39.15 Urgency of urination; R35.0 Frequency of micturition; R35.1 Nocturia | CPT/HCPCS: 51798; 81003; 99212 ==

== ENCOUNTER 2024-09-04 10:29 | Outpatient (REF) | payer OTHER, SELFPAY ==
--- NOTE | ~2024-09-04 | MM_ITS ---
EXAMINATION: DXA BONE DENSITY AXIAL HISTORY: Z78.0 - Asymptomatic menopausal state TECHNIQUE: Bandspeed Dual energy absorptiometry (DEXA) of the lumbar spine, total left hip, and femoral neck was performed. COMPARISON: There are no prior studies for comparison. FINDINGS: The bone mineral density of the lumbar spine is 1.153 g/cm2, corresponding to a T-score of -0.2, and a Z-score of -0.2. This is indicative of normal bone mineral density. The bone mineral density of the left total hip is 1.173 g/cm2, corresponding to a T-score of 1.3, and a Z-score of 1.4. This is indicative of normal bone mineral density. The bone mineral density of the left femoral neck is 0.977 g/cm2, corresponding to a T-score of -0.4, and a Z-score of 0.0. This is indicative of normal bone mineral density. FRACTURE RISK: The FRAX index suggests a risk of major osteoporotic fracture of 3.1%, and of hip fracture 0.1%. MM/XR DEXA axial skeleton IMPRESSION: Based on bone mineral density, and according to World Health Organization (WHO) criteria, the diagnosis is consistent with normal bone mineral density. Statistically, 68% of repeat scans fall within 1 SD (+/- 0.010 g/cm2 for AP spine L1-L4) and 1 SD (+/- 0.012 g/cm2 for femur total) FRAX is a trademark of the [employer] Met[employer] Bone Disease, a World Health Organization (WHO) Collaborating Center. Electronically signed by: Dax Milligan MD 09/04/2024 11:16 AM EDT
--- OUTSIDE RECORDS SUMMARY | 2024-09-04 11:24 | XMS_ITS | Encounter Summary ---
Author Organization [facility] Address [address] [place] [address] Care Team Providers Care Transmission Mechanic Name Role Phone Unavailable Primary Care Provider Unavailabl e Encounter Details Date Type Department Care Team (Latest Contact Info) Description 03/27/2018 Abstract [facility] CONVERSIONS Dental, Provider, DDS Social [...] Description 01/15/2025 3:00 PM EST Office Visit [facility] ADULT DENTAL [address] [place] [address] Dulce Maria Handley [address] [place] [address] documented as of this encounter Visit Diagnoses Not on filedocumented in this encounter
== END 2024-09-04 10:30 | disposition home or self-care (01) ==
LOC: HO.MAMMO 10:29
PROVIDERS: PCP Internal Medicine; Visit Provider Internal Medicine
DX: Z13.820 Encounter for screening for osteoporosis (principal); Z78.0 Asymptomatic menopausal state
CPT/HCPCS: 77080

== ENCOUNTER → 2024-09-04 11:00 | Outpatient (BNV) | payer OTHER, SELFPAY | PROVIDERS: PCP Internal Medicine; Visit Provider Radiology Diagnostic Radiology | DX: E28.39 Other primary ovarian failure (principal) | CPT/HCPCS: 77080 ==

== ENCOUNTER 2024-11-12 08:50 | Outpatient (REF) | payer OTHER, SELFPAY ==
--- OUTSIDE RECORDS SUMMARY | 2024-11-12 10:07 | XMS_ITS | Clinical Summary ---
Author Organization [employer] Address [address] [place] [address] Care Team Providers Care Financial Services Manager Name Role Phone Unavailable Primary Care Provider [...] Description 01/15/2025 3:00 PM EST Office Visit [facility] ADULT DENTAL [address] [place] [address] Emmanuelle, Dulce Maria [address] [place] [address] Health Maintenance Due Date Last Done Comments CT Colonography 1964 Colonoscopy 1964 Colorectal Cancer Screening 1964 Depression Screening 1964 FIT DNA/Cologuard 1964 FIT 1964 FOBT 1964 HIV Screening 1964 SDOH Screening 1964 Sigmoidoscopy 1964 Disability Screening 1964 Alcohol/Substance Use Screening 1976 Hepatitis C Screening 1982 Pap Smear 1985 Cervical Cancer Screening 1994 [...] 03/05/2021, 10/27/2018, Additional history exists COVID-19 Vaccine ( - season) 2024 03/31/2021, 03/10/2021 Influenza Vaccine (#1) 2024 , 12/28/2021, 01/15/2020, Additional history exists DTaP/Tdap/Td Vaccines (2 - [...] Recently Relevant to Health Maintenance Insurance DENTAL [facility]
--- OUTSIDE RECORDS SUMMARY | 2024-11-12 10:07 | XMS_ITS | Encounter Summary ---
Author Organization [facility] Address [address] [place] [address] Care Team Providers Care Log Pond Worker Name Role Phone Unavailable Primary Care Provider Unavailabl e Encounter Details Date Type Department Care Team (Latest Contact Info) Description 03/27/2018 Abstract [facility] CONVERSIONS Dental, Provider, DDS Social History [...] Description 01/15/2025 3:00 PM EST Office Visit [facility] ADULT DENTAL [address] [place] [address] Dulce Maria Handley [address] [place] [address] documented as of this encounter Visit Diagnoses Not on filedocumented in this encounter
--- OUTSIDE RECORDS SUMMARY | 2024-11-12 10:07 | XMS_ITS | Clinical Summary ---
Author Organization [facility] Address [address] [place] [address] Care Team Providers Care Leg Breaker Name Role Phone Charlie Ty MD Primary Care Provider [phone] Family History Medical History Relation Name Comments [...] 2014 Zoster Vaccines (1 of 2) 2014 Depression Screening 02/29/2024 COVID-19 Vaccine ( - 2023-2 5 season) 2024 Influenza Vaccine (#1) 2024 RSV Immunization Adult Patie nts (1 [...] age to complete this topic Care Teams Leg Breaker Relationship Specialty Start Date End Date Charlie Ty MD [address] [place] [address] Dr [address] [place] PCP - General Internal Medicine 01/07/16
--- OUTSIDE RECORDS SUMMARY | 2024-11-12 10:07 | XMS_ITS | Encounter Summary ---
Author Organization [facility] Address [address] [place] [address] Care Team Providers Care Sales Planning Manager Name Role Phone Unavailable Primary Care Provider Unavailabl e Encounter Details Date Type Department Care Team (Latest Contact Info) Description 03/05/2021 Abstract [facility] CONVERSIONS Dental, Provider, DDS Social History Tobacco [...] Description 01/15/2025 3:00 PM EST Office Visit [facility] ADULT DENTAL [address] [place] [address] Hugh Handleyaris [address] [place] [address] documented as of this encounter Visit Diagnoses Not on filedocumented in this encounter
[2024-11-12 11:16] LABS: MANUAL DIFF FLAG NO
[2024-11-12 11:19] LABS: Hematocrit 40.3 % (37.0-47.0); Hemoglobin 13.8 g/dl (12.0-16.0); Imm Gran Abs Auto 0.02 X10*3/uL (0.00-0.03); Imm Gran Pct Auto 0.4 % (0.0-0.4); Lymphocytes Absolute Auto 0.8 X10*3/uL (1.2-4.9); Mean Corpuscular HGB Conc 34.2 g/dl (31.0-35.0); Mean Corpuscular Hemoglobin 30.7 pg (27.0-33.0); Mean Corpuscular Volume 89.6 fL (80.0-98.0); NRBC Abs Auto 0.000 X10*3/uL (0.0-0.012); NRBC Pct Auto 0.0 /100WBC (0.0-0.2); Platelet Count 210 X10*3/uL (160-400); Red Blood Count 4.50 X10*6/uL (4.20-5.50); White Blood Count 5.1 X10*3/uL (4.8-10.8)
[2024-11-12 11:21] LABS: Hematocrit 41.2 % (37.0-47.0); Hemoglobin 13.8 g/dl (12.0-16.0); Imm Gran Abs Auto 0.05 X10*3/uL (0.00-0.03); Imm Gran Pct Auto 1.0 % (0.0-0.4); Lymphocytes Absolute Auto 0.8 X10*3/uL (1.2-4.9); Mean Corpuscular HGB Conc 33.5 g/dl (31.0-35.0); Mean Corpuscular Hemoglobin 30.1 pg (27.0-33.0); Mean Corpuscular Volume 90.0 fL (80.0-98.0); NRBC Abs Auto 0.000 X10*3/uL (0.0-0.012); NRBC Pct Auto 0.0 /100WBC (0.0-0.2); Platelet Count 214 X10*3/uL (160-400); Red Blood Count 4.58 X10*6/uL (4.20-5.50); White Blood Count 5.3 X10*3/uL (4.8-10.8)
[2024-11-12 11:34] LABS: Appearance Urine Clear; Glucose Urine UA Negative (Negative); PH 7.0 (5.0-9.0); Specific Gravity - Urine 1.015 (1.005-1.025)
[2024-11-12 12:06] LABS: Alanine Aminotransferase 27 U/L (0-31); Albumin Level 4.8 g/dL (3.5-5.0); Alkaline Phosphatase 62 U/L (39-117); Anion Gap 12 (12-20); Aspartate Amino Transferase 27 U/L (5-31); Blood Urea Nitrogen 12 mg/dL (9-16); Calcium 10.3 mg/dL (8.4-10.2); Carbon Dioxide 30 mmol/L (22-29); Chloride 106 mmol/L (96-108); Cholesterol 152 mg/dL (<200); Estimated Glomerular Filt Rate > 60; HDL Cholesterol 52 mg/dL (>40); Potassium 4.3 mmol/L (3.3-5.1); Sodium 144 mmol/L (135-145); Total Protein 7.1 g/dL (6.5-8.0); Triglycerides 76 mg/dL (<150)
[2024-11-12 12:17] LABS: Alanine Aminotransferase 28 U/L (0-31); Albumin Level 4.8 g/dL (3.5-5.0); Alkaline Phosphatase 64 U/L (39-117); Anion Gap 12 (12-20); Aspartate Amino Transferase 25 U/L (5-31); Blood Urea Nitrogen 13 mg/dL (9-16); Calcium 10.4 mg/dL (8.4-10.2); Carbon Dioxide 31 mmol/L (22-29); Chloride 106 mmol/L (96-108); Cholesterol 151 mg/dL (<200); Estimated Glomerular Filt Rate > 60; HDL Cholesterol 52 mg/dL (>40); Potassium 4.6 mmol/L (3.3-5.1); Sodium 144 mmol/L (135-145); Total Protein 7.1 g/dL (6.5-8.0); Triglycerides 74 mg/dL (<150)
[2024-11-12 12:18] LABS: Folate 15.0 ng/mL (> or = 4.0); Vitamin B12 289 pg/mL (200-900)
== END 2024-11-12 08:51 | disposition home or self-care (01) ==
LOC: HO.HHCL 08:50
PROVIDERS: PCP Internal Medicine; Visit Provider Internal Medicine
DX: R30.0 Dysuria (principal); E55.9 Vitamin D deficiency, unspecified; E78.00 Pure hypercholesterolemia, unspecified; D64.9 Anemia, unspecified; E53.8 Deficiency of other specified B group vitamins; E66.9 Obesity, unspecified; G47.33 Obstructive sleep apnea (adult) (pediatric); R53.83 Other fatigue; M79.7 Fibromyalgia; M25.562 Pain in left knee; M19.91 Primary osteoarthritis, unspecified site; M51.360 Other intervertebral disc degeneration, lumbar region with discogenic back pain only
CPT/HCPCS: 36415; 80053; 80061; 81003; 82306; 82607; 82746; 84443; 85025

== ENCOUNTER 2024-11-13 12:28 | Outpatient (AMB) | payer OTHER, SELFPAY ==
--- NOTE | 2024-11-13 12:38 | A.OFFVIS_ITS ---
Vital Signs 11/13/24 12:39 Height 5 ft 8 in Weight 241 lb BMI 36.6 BP 142/94 H Blood Pressure Location Rt brachial Position Sitting Pulse 70 Pulse Source Pulse Oximeter Pulse Oximetry (%) 97 Oxygen Delivery Method Room Air Intake Visit Reasons: 6 month F/U Intake Note: Patient presents 6 month follow up for TOMAS. Patient is non compliant with CPAP. Polymerization Oven Operator Required: No Accompanied by: Self / Same As Patient Allergies No Known Allergies (No Known Allergies*) Allergy (Verified 11/13/24 12:43) HPI Comments Details: 59 y/o female patient presents for follow up of TOMAS. 2022 home sleep study result was significant for a mild degree of sleep apnea. * The AHI was 5/hr and oxygen asher was 83%. * The total duration of O2 sat below 88% was 2 min. Pt started APAP 5-15 cmH2O, however she could not tolerate it as she has daytime and nighttime urnary frequency. Wakes up about 5-6 x's per night to void. Has sen urology, and states she was told she was ok. She tries to avoid excess fluid intake in the evening. She reports that even when using the CPAP, she had the same amount of urinary frequency. She states she is always tired. She also endorses restless sleep, restlessness in BLE when sitting for longer periods. For instance, she struggles to go on vacation due to long travel times. She has had nocturnal leg cramps, but these improved when she started Mag suuplement. She has a h/o mild anemia. Her recent B12 level was low norm, w/ normal TSH and Folate levels. [facility] Medical History Allergic rhinitis Urinary incontinence Obesity (BMI 30-39.9) Vitamin D deficiency Lumbar degenerative disc disease Osteoarthritis Pure hypercholesterolemia Fibromyalgia Surgical History Hx of varicose veins H/O LEEP History of tubal ligation Family History Father Medical history unknown Mother Stroke Diabetes Hypertension CVD (cardiovascular disease) Brother Substance abuse Maternal Uncle Throat cancer Social History Household Members: None Housing: Apartment Are you a primary live in caregiver to a significant other at home: No Do you presently have visiting nurse or other home services: No 75 years or older and lives alone: No Alcohol intake: never Patient Tobacco Use Status: Never used Tobacco e-Cigarette/Vaping Use: Never Used Second Hand Smoke Exposure: No service: No Current occupational status: disabled Current occupational exposures/hazards: No Cognitive needs: No Hearing needs: No Vision needs: Yes (Glasses) Review of Systems Const All systems reviewed & are unremarkable except as noted in HPI and below Physical Exam Vital Signs: Last Vital Signs Pulse 70 11/13/24 12:39 BP 142/94 H 11/13/24 12:39 Pulse Ox 97 11/13/24 12:39 Oxygen Delivery Method Room Air 11/13/24 12:39 BMI result Body Mass Index 36.6 Const General: cooperative Nutritional Appearance: obese Orientation/consciousness: patient oriented x3 HEENT Throat: Yes other (mallampati grade 4) Neck Neck: Yes full ROM and Yes supple Resp Effort & Inspection: normal respiratory effort and able to speak in complete sentences Neuro General: patient oriented x3 and gait normal Cranial nerves: Yes CN's II-XII intact bilaterally Cognition (Neuro): normal cognition Gait exam (Neuro): Normal gait present Motor exam (neuro): 5/5 motor strength present throughout Psych Appearance: grossly normal Mental Status: mental status grossly normal Speech and movement: Normal speech and movement present Affect: normal affect Attitude: cooperative Assessment & Plan Assessment & Plan (1) TOMAS (obstructive sleep apnea): Comment: Mild degree of sleep apnea. The AHI was 5/hr. oxygen asher was 83%. Code(s): G47.33 - Obstructive sleep apnea (adult) (pediatric) Category: Medical (2) Restless leg syndrome: Comment: likely PLMS as well Code(s): G25.81 - Restless legs syndrome Category: Medical Plan Patient has returned her APAP machine. As her TOMAS is very mild, she may try more conservative therapies, such as: * Sleeping with her head elevated, with a sleep apnea wedge pillow * Breathe-right nasal strips * Mute intranasal anti-snoring device Continue magnesium 400 mg qHS for leg cramps. Check labs for common etiolgies of RLS/PLMS s/s Offered f/u in-lab PSG to assess for PLMS- however pt states she does ot think she could sleep there. Will follow-up upon review of above and patient to follow-up in clinic in 6 months or sooner prn. Orders: Orders Homocysteine Today D64.9 - Anemia, unspecified, M18.12 - Unilateral primary osteoarthritis of first carpometacarpal joint, left hand, R53.83 - Other fatigue HARSHA Reflex Titer and Pattern Today D64.9 - Anemia, unspecified, M18.12 - Unilateral primary osteoarthritis of first carpometacarpal joint, left hand, R53.83 - Other fatigue Methylmalonic Acid Today D64.9 - Anemia, unspecified, M18.12 - Unilateral primary osteoarthritis of first carpometacarpal joint, left hand, R53.83 - Other fatigue Rheumatoid Factor Today D64.9 - Anemia, unspecified, M18.12 - Unilateral primary osteoarthritis of first carpometacarpal joint, left hand, R53.83 - Other fatigue Ferritin Today D64.9 - Anemia, unspecified, M18.12 - Unilateral primary osteoarthritis of first carpometacarpal joint, left hand, R53.83 - Other fatigue IRON PROFILE Today D64.9 - Anemia, unspecified, M18.12 - Unilateral primary osteoarthritis of first carpometacarpal joint, left hand, R53.83 - Other fatigue Vitamin B1 Today D64.9 - Anemia, unspecified, E51.9 - Thiamine deficiency, unspecified, M18.12 - Unilateral primary osteoarthritis of first carpometacarpal joint, left hand, R53.83 - Other fatigue Vitamin B6 Today D64.9 - Anemia, unspecified, M18.12 - Unilateral primary osteoarthritis of first carpometacarpal joint, left hand, R53.83 - Other fatigue Erythrocyte Sedimentation Rate Today D64.9 - Anemia, unspecified, M18.12 - Unilateral primary osteoarthritis of first carpometacarpal joint, left hand, R53.83 - Other fatigue C Reactive Protein Today D64.9 - Anemia, unspecified, M18.12 - Unilateral primary osteoarthritis of first carpometacarpal joint, left hand, R53.83 - Other fatigue Coding Level of Care Code Est Pt Level 3 (00213) Diagnoses TOMAS (obstructive sleep apnea) G47.33 Restless leg syndrome G25.81
[2024-11-13 12:39] VITALS: BP 142/94; PULSE 70; O2SAT 97; BMI 36.6
--- OUTSIDE RECORDS SUMMARY | 2024-11-13 16:30 | XMS_ITS | Encounter Summary ---
Author Organization [facility] Address [address] [place] [address] Care Team Providers Care Library Associate Name Role Phone Unavailable Primary Care Provider Unavailabl e Encounter Details Date Type Department Care Team (Latest Contact Info) Description 03/27/2018 Abstract [facility] CONVERSIONS Dental, Provider, DDS Social History Tobacco [...] Description 01/15/2025 3:00 PM EST Office Visit [facility] ADULT DENTAL [address] [place] [address] Dulce Maria Handley [address] [place] [address] documented as of this encounter Visit Diagnoses Not on filedocumented in this encounter
--- OUTSIDE RECORDS SUMMARY | 2024-11-13 16:30 | XMS_ITS | Clinical Summary ---
Author Organization [facility] Address [address] [place] [address] Care Team Providers Care Ups Driver Name Role Phone Charlie Ty MD Primary Care Provider [phone] Family History Medical History Relation Name Comments [...] age to complete this topic Care Teams Ups Driver Relationship Specialty Start Date End Date Charlie Ty MD [address] [place] [address] Dr [address] [place] PCP - General Internal Medicine 01/07/16
--- OUTSIDE RECORDS SUMMARY | 2024-11-13 16:30 | XMS_ITS | Clinical Summary ---
Author Organization [employer] Address [address] [facility] [address] [place] [address] Care Team Providers Care Bending Press Operator Name Role Phone Unavailable Primary Care [...] Description 01/15/2025 3:00 PM EST Office Visit [facility] [address] [place] [address] Emmanuelle, Dulce Maria [address] [place] [address] Health Maintenance Due Date Last Done Comments [...] Recently Relevant to Health Maintenance Insurance [facility]ENT[facility]
--- OUTSIDE RECORDS SUMMARY | 2024-11-13 16:30 | XMS_ITS | Encounter Summary ---
Author Organization [employer] [facility] Address [address] [facility] [address] [place] [address] Care Team Providers Care Cement Mixer Name Role Phone Unavailable Primary Care Provider Unavailabl e Encounter Details Date Type Department Care Team (Latest Contact Info) Description 03/05/2021 Abstract [facility] CONVERSIONS Dental, Provider, DDS Social History [...] Description 01/15/2025 3:00 PM EST Office Visit [facility] [address] [place] [address] Hugh Handleyaris [address] [place] [address] documented as of this encounter Visit Diagnoses Not on filedocumented in this encounter
== END 2024-11-13 13:49 | disposition home or self-care (01) ==
LOC: HO.HSMS 12:29
PROVIDERS: PCP Internal Medicine; Visit Provider Nurse Practitioner Family
DX: G47.33 Obstructive sleep apnea (adult) (pediatric) (principal); G25.81 Restless legs syndrome
CPT/HCPCS: 99213

== ENCOUNTER → 2024-11-13 12:28 | Outpatient (BNVA) | payer OTHER, SELFPAY | PROVIDERS: PCP Internal Medicine; Visit Provider Nurse Practitioner Family | DX: G47.33 Obstructive sleep apnea (adult) (pediatric) (principal); G25.81 Restless legs syndrome; M18.12 Unilateral primary osteoarthritis of first carpometacarpal joint, left hand; R53.83 Other fatigue; D64.9 Anemia, unspecified | CPT/HCPCS: 99212 ==

== ENCOUNTER 2024-11-19 12:34 | Outpatient (AMB) | payer OTHER, SELFPAY ==
--- NOTE | 2024-11-19 12:36 | MHC.PC.OV ---
Vital Signs 11/19/24 12:37 Height 5 ft 8 in Weight 238 lb 6 oz BMI 36.2 BP 122/74 Blood Pressure Location Lt brachial Position Sitting Pulse 100 Pulse Source Pulse Oximeter Temp 97.1 F Temp Source Temporal Artery Scan Pulse Oximetry (%) 95 Oxygen Delivery Method Room Air Intake Visit Reasons: hyperlipidemia, OA, fibromyalgia, TOMAS Rn Endocrinology Required: Yes Rn Endocrinology Language: Arabic Allergies No Known Allergies (No Known Allergies*) Allergy (Verified 11/19/24 13:09) Medication List - Last Reconciled 11/19/24 by Charlie Ty MD atorvastatin 20 mg PO DAILY 90 days [Bed grab bars As directed] calcium citrate-vitamin D3 315 mg-6.25 mcg (250 unit) (Citracal + Vitamin D Maximum) 1 tab PO DAILY cholecalciferol (vitamin D3) 1,250 mcg PO QWEEK clobetasol 0.05% 1 appl topical BID [CONTOUR Memory Foam Leg Pillow As directed] diclofenac sodium 1% (Voltaren Arthritis Pain) 2 grams topical QID PRN 30 days duloxetine 30 mg PO .qhs duloxetine (Cymbalta) 60 mg PO QAM gabapentin 400 mg PO BID ibuprofen 800 mg PO TID PRN [INCONTINENCE PADS 90 day supply Use 4 to 5 pads a day as directed] lidocaine 5% 2 patches topical DAILY loratadine 10 mg PO DAILY PRN 90 days magnesium oxide 400 mg PO DAILY 90 days tizanidine 4 mg PO Q8H PRN Tobacco use date assessed: 11/19/24 Dental Screening Dental Screen Date: 11/19/24 Did you have a dental visit in the last 12 months?: Yes Did you have a dental problem in the last 6 months where you did not have access to dental care?: No Was dental information given to patient?: Patient has dentist HPI hyperlipidemia, OA, fibromyalgia, TOMAS HPI Details Patient comes in today for her follow up visit States that she feels okay although she still has her usual recurrent aches and pains She denies any headaches or dizziness Denies any chest pains, no increased SOB No nausea/vomiting, no abdominal pain No change in bowel habits noted She had her follow up labs done last week - to discuss her results She would also like to know how her BMD done a couple of months ago came out [facility] Medical History Anemia Allergic rhinitis Urinary incontinence Obesity (BMI 30-39.9) Vitamin D deficiency Lumbar degenerative disc disease Osteoarthritis Pure hypercholesterolemia Fibromyalgia Surgical History Hx of varicose veins H/O LEEP History of tubal ligation Family History Father Medical history unknown Mother Stroke Diabetes Hypertension CVD (cardiovascular disease) Brother Substance abuse Maternal Uncle Throat cancer Social History Household Members: None Housing: Apartment Are you a primary lead caregiver to a significant other at home: No Do you presently have visiting nurse or other home services: No 75 years or older and lives alone: No Alcohol intake: never Patient Tobacco Use Status: Never used Tobacco e-Cigarette/Vaping Use: Never Used Second Hand Smoke Exposure: No service: No Current occupational status: disabled Current occupational exposures/hazards: No Cognitive needs: No Hearing needs: No Vision needs: Yes (Glasses) Questionnaire PHQ-9 Over the last 2 weeks, how often have you been bothered by any of the following problems? 1. Little interest or pleasure in doing things: several days 2. Feeling down, depressed, or hopeless: several days 3. Trouble falling or staying asleep, or sleeping too much: several days 4. Feeling tired or having little energy: several days 5. Poor appetite or overeating: not at all 6. Feeling bad about yourself - or that you are a failure or have let yourself or your family down: not at all 7. Trouble concentrating on things, such as reading the newspaper or watching television: several days 8. Moving or speaking so slowly that other people could have noticed. Or the opposite - being so fidgety or restless that you have been moving around a lot more than usual: several days 9. Thoughts that you would be better off or of hurting yourself in some way: not at all Total score: 6 Depression Screening Interpretation: Positive Depression Screening Follow-up: Existing condition and In treatment Depression Screening Done: Yes 43125 - PHQ-9 Billing: Yes Source: Developed by Drs. Dax Armas, Jovita BAlex Perez and colleagues, with an educational roscoe from [employer]. Thrive Questionnaire Date Thrive assessed: 07/16/24 I am a: Patient What is your living situation today?: I have a steady place to live Within the past 12 months, did the food you bought not last and you didn't have the money to get more?: I choose not to answer this question Within the past 12 months, did you worry whether your food would run out before you got money to buy more?: I choose not to answer this question Do you have trouble paying for medicines?: No Do you have trouble getting transportation to medical appointments?: No Do you have trouble paying your heating and electricity bill?: No Do you have trouble taking care of your child, family member or friend?: I choose not to answer this question Do you have trouble with day-to-day activities such as bathing, preparing meals, shopping, managing finances, etc.?: No Are you currently unemployed and looking for a job?: I choose not to answer this question Are you interested in more education?: I choose not to answer this question Please select the resources that you would like help with: None Currently or been in a relationship where the following occur: I choose not to answer THRIVE Score: 0 AUDIT C Alcohol Use Questionnaire (AUDIT-C) 1. How often do you have a drink containing alcohol?: Never 3. How often do you have six or more drinks on one occasion?: Never Total Score: 0 Score Reviewed/Action Taken: Yes CAM-7 AMB Questionnaire CAM-7 Date CAM - 7 assessed: 07/16/24 Feeling nervous, anxious, or on edge: 0 = Not at all Not being able to stop or control worryin = Not at all Worrying too much about different things: 1 = Several days Trouble relaxin = Several days Being so restless that it is hard to sit still: 0 = Not at all Becoming easily annoyed or irritable: 1 = Several days Feeling afraid as if something awful might happen: 0 = Not at all Total CAM-7 score (0-4 normal; 5-9 mild; 10-14 moderate; 15-21 severe): 3 Source: Developed by Drs. Dax Armas, Alex Velasquez and colleagues, with an educational roscoe from [employer]. Review of Systems Const Denies chills, Denies fatigue, Denies fever(s) and Denies headache(s) ENT Denies dysphagia, Denies dizziness, Denies otalgia, Denies headache(s), Denies neck pain, Denies odynophagia, Denies sore throat and Denies throat swelling Card Denies chest pain, Denies palpitations and Denies dyspnea Resp Denies chest congestion, Denies cough, Denies dyspnea and Denies wheezing GI Denies abdominal pain, Denies constipation, Denies dysphagia, Denies heartburn, Denies diarrhea, Denies nausea, Denies odynophagia and Denies vomiting Reports nocturia, Denies dysuria, Reports urinary incontinence and Denies urinary urgency Musc Reports back pain (on and off, mostly over the upper back behind the shoulders), Reports myalgias (recurrent, especially behind both shoulders), Reports arthralgias (on and off involving multiple joints, including left knee) and Denies neck pain Skin/Breast Denies rash Neuro Denies dizziness and Denies headache(s) Psych Denies anxiety Endo Denies fatigue and Denies palpitations Ray/Lymph Denies easy bruising Aller/Immun Denies throat swelling and Denies wheezing Physical exam (Primary Care) Vital Signs: Last Vital Signs Temp 97.1 F 11/19/24 12:37 Pulse 100 11/19/24 12:37 BP 122/74 11/19/24 12:37 Pulse Ox 95 11/19/24 12:37 Oxygen Delivery Method Room Air 11/19/24 12:37 BMI result Body Mass Index 36.2 Tobacco/Smoking Status: Tobacco use Status Tobacco use date assessed 11/19/24 11/19/24 12:41 Patient Tobacco Use Status Never used Tobacco 11/19/24 12:41 e-Cigarette/Vaping Use Never Used 11/19/24 12:41 PHQ-9: PHQ-9 Score PHQ-9: Total score 6 11/19/24 12:41 Depression Screening Interpretation: Positive Depression Screening Follow-up: Existing condition and In treatment Thrive Assessment: Date of Thrive Assessment Date Thrive assessed 07/16/24 11/19/24 12:41 Currently or been in a relationship where the following occur: I choose not to answer Const General: no acute distress and alert HENMT Ears: TM's normal bilaterally and EAC's normal Throat: Yes posterior oropharynx normal and Yes tonsils normal (no TP congestion noted) Neck Neck: No lymphadenopathy and Yes tender (mild - over the cervical spine and paraspinal areas bilaterally) Thyroid: Thyroid normal Resp Auscultation: clear to auscultation bilaterally, no rales and no wheezes Cardio Rate: regular rate Rhythm: regular rhythm Heart sounds: no murmurs GI Palpation (GI): Soft to palpation and nontender Auscultation: normal bowel sounds General: Yes no CVA tenderness Back/Spine/Pelvis Back: no CVA tenderness Cervical Spine: cervical muscular tenderness Thoracic/Lumbar Spine: paraspinal muscle tenderness bilaterally (over the cervical and thoracolumbar spine (diffuse)) and lumbar spinal tenderness Skin Rashes: no rashes Neuro General: no focal motor deficits Extrem General: Yes no clubbing, cyanosis or edema Right upper extremity: shoulder/upper arm Details: tenderness (diffusely over the scapular area) Left upper extremity: shoulder/upper arm Details: tenderness (diffusely over the scapular areas) Left lower extremity: knee Details: tenderness Results Reviewed Results Reviewed: Laboratory Tests 04/03/24 11/12/24 11/12/24 09:18 09:00 09:19 WBC 4.9 5.3 Hgb 13.9 13.8 Hct 40.9 41.2 Plt Count 220 214 Sodium 144 Potassium 4.6 Creatinine 0.74 Estimated GFR > 60 Fasting Glucose 103 H Calcium 10.4 H AST 25 ALT 28 Triglycerides 74 Cholesterol 151 LDL Cholesterol, Calc 85 HDL Cholesterol 52 Vitamin B12 289 25-OH Vitamin D Total 76.0 TSH 3.58 Ur Specific [place] 1.015 Urine Protein Negative Urine Glucose (UA) Negative Urine Blood Negative Urine Nitrite Negative Ur Leukocyte Esterase Negative Coding Level of Care Code Est Pt Level 4 (76791) Diagnoses Pure hypercholesterolemia E78.00 Degeneration of intervertebral disc of lumbar region, unspecified whether pain present M51.369 Disc-related pain type: unspecified whether pain present Primary osteoarthritis, unspecified site M19.91 Osteoarthritis location: unspecified site Osteoarthritis type: primary Fibromyalgia M79.7 TOMAS (obstructive sleep apnea) G47.33 Vitamin D deficiency E55.9 Seasonal allergic rhinitis due to pollen J30.1 Allergic rhinitis trigger: pollen Allergic rhinitis seasonality: seasonal Urinary incontinence, unspecified type R32 Urinary Incontinence type: unspecified incontinence Obesity (BMI 30-39.9) E66.9 Additional Codes PHQ-9 - 57275 - PHQ-9 Billing: Yes ([id number]) Assessment & Plan Assessment & Plan (1) Pure hypercholesterolemia: Code(s): E78.00 - Pure hypercholesterolemia, unspecified Category: Medical Plan: Results of her labs done last week reviewed and discussed with patient Reinforced low-cholesterol diet Continue Atorvastatin 10 mg QD Will recheck her labs and fasting lipids in 4 months for follow-up (2) Lumbar degenerative disc disease: Code(s): M51.36 - Other intervertebral disc degeneration, lumbar region Category: Medical Qualifiers: Disc-related pain type: unspecified whether pain present Qualified Code(s): M51.369 - Other intervertebral disc degeneration, lumbar region without mention of lumbar back pain or lower extremity pain Plan: Reinforced activity and weight lifting restrictions Continue Gabapentin 400 mg BID and Tizanidine 4 mg Q 8 hours as needed (3) Osteoarthritis: Code(s): M19.90 - Unspecified osteoarthritis, unspecified site Category: Medical Qualifiers: Osteoarthritis location: unspecified site Osteoarthritis type: primary Qualified Code(s): M19.91 - Primary osteoarthritis, unspecified site Plan: Involving multiple joints Repeat x-rays of the left knee done in August 2021 confirmed (+) OA changes in her left knee Lab work ups done a couple of years ago were negative for any inflammatory arthritis or condition Continue Ibuprofen 800 mg 3 times a day as needed and Voltaren gel 1% apply 1 to 2 times a day as needed Patient also takes Tylenol 500 mg every 6-8 hours additionally as needed for increased pain Follow up with rheumatology as scheduled Patient is also advised that her BMD done back in August 2024 came out NORMAL (4) Fibromyalgia: Code(s): M79.7 - Fibromyalgia Category: Medical Plan: Patient is again encouraged again to stay active and exercise regularly to help manage her fibromyalgia symptoms Continue Duloxetine 60 mg QD; she is also on Gabapentin and Tizanidine to help manage her symptoms Follow up with rheumatology as scheduled (5) TOMAS (obstructive sleep apnea): Comment: Mild degree of sleep apnea. The AHI was 5/hr. oxygen asher was 83%. Code(s): G47.33 - Obstructive sleep apnea (adult) (pediatric) Category: Medical Plan: Her home sleep study done in November 2022 apparently came out with mild TOMAS, with oxygen asher at 83% She has a CPAP device and settings are recommended at APAP 5-15 cmH2O but patient admits to using her device only some of the time as she finds it uncomfortable to sleep at night with something on her face Have again stressed to her the importance of compliance with CPAP therapy and of treating TOMAS to prevent significant health issues in the future, especially heart disease and heart failure Follow up with Sleep Medicine as scheduled (6) Vitamin D deficiency: Code(s): E55.9 - Vitamin D deficiency, unspecified Category: Medical Plan: Continue Vitamin D2 60361 units once a week (7) Allergic rhinitis: Code(s): J30.9 - Allergic rhinitis, unspecified Category: Medical Qualifiers: Allergic rhinitis trigger: pollen Allergic rhinitis seasonality: seasonal Qualified Code(s): J30.1 - Allergic rhinitis due to pollen Plan: Continue Loratadine 10 mg QD PRN (8) Urinary incontinence: Code(s): R32 - Unspecified urinary incontinence Category: Medical Qualifiers: Urinary Incontinence type: unspecified incontinence Qualified Code(s): R32 - Unspecified urinary incontinence Plan: Patient uses incontinence pads PRN Follow up with urology as scheduled (9) Obesity (BMI 30-39.9): Code(s): E66.9 - Obesity, unspecified Category: Medical Plan: Reinforced diet/exercise as tolerated/lose weight Plan Follow up in 4 months Orders: Orders Lipid Panel 4 Months E78.00 - Pure hypercholesterolemia, unspecified UA CC w/rflx Micro + Cult 4 Months R30.0 - Dysuria Complete Blood Count Auto Diff 4 Months D64.9 - Anemia, unspecified Comprehensive [place]. Panel Fast 4 Months E78.00 - Pure hypercholesterolemia, unspecified
[2024-11-19 12:37] VITALS: BP 122/74; PULSE 100; TEMP 36.2; O2SAT 95; BMI 36.2
== END 2024-11-19 13:21 | disposition home or self-care (01) ==
LOC: HO.HMCH 12:35
PROVIDERS: PCP Internal Medicine; Visit Provider Internal Medicine
DX: E78.00 Pure hypercholesterolemia, unspecified (principal); M51.369 Other intervertebral disc degeneration, lumbar region without mention of lumbar back pain or lower extremity pain; E66.9 Obesity, unspecified; Z68.36 Body mass index [BMI] 36.0-36.9, adult; M19.91 Primary osteoarthritis, unspecified site; M79.7 Fibromyalgia; G47.33 Obstructive sleep apnea (adult) (pediatric); E55.9 Vitamin D deficiency, unspecified; J30.1 Allergic rhinitis due to pollen; R32 Unspecified urinary incontinence

== ENCOUNTER → 2024-11-19 12:34 | Outpatient (BNVA) | payer OTHER, SELFPAY | PROVIDERS: PCP Internal Medicine; Visit Provider Internal Medicine | DX: M79.7 Fibromyalgia (principal); G47.33 Obstructive sleep apnea (adult) (pediatric); E78.00 Pure hypercholesterolemia, unspecified; M51.369 Other intervertebral disc degeneration, lumbar region without mention of lumbar back pain or lower extremity pain; M19.91 Primary osteoarthritis, unspecified site; E55.9 Vitamin D deficiency, unspecified; J30.1 Allergic rhinitis due to pollen; R32 Unspecified urinary incontinence; E66.9 Obesity, unspecified; R30.0 Dysuria; D64.9 Anemia, unspecified; Z68.36 Body mass index [BMI] 36.0-36.9, adult | CPT/HCPCS: 96127; 99212 ==

== ENCOUNTER 2024-12-03 13:42 | Outpatient (REF) | payer OTHER, SELFPAY | END 2024-12-03 13:43 | disposition home or self-care (01) | LOC: HO.LAB 13:42 | PROVIDERS: PCP Internal Medicine; Visit Provider Nurse Practitioner Family | DX: N39.3 Stress incontinence (female) (male) (principal); R39.15 Urgency of urination; R35.0 Frequency of micturition; R35.1 Nocturia; R31.29 Other microscopic hematuria; Z13.89 Encounter for screening for other disorder; N32.81 Overactive bladder | CPT/HCPCS: 51798; 81003; 88112; 99212 ==

== ENCOUNTER 2024-12-03 13:42 | Outpatient (AMB) | payer OTHER, SELFPAY ==
--- NOTE | 2024-12-03 13:57 | A.OFFVIS_ITS ---
Intake Visit Reasons: 3m/PVR Intake Note: Patient is present for 3M/PVR Urology Medication:NONE Antibiotic Allergy:NONE Blood Thinner:NONE Todays PVR:0ML'S Internal Medicine Nurse Practitioner Required: Yes Internal Medicine Nurse Practitioner Services: Internal Medicine Nurse Practitioner Present Internal Medicine Nurse Practitioner Name: Emily Melendez Allergies No Known Allergies (No Known Allergies*) Allergy (Verified 12/03/24 16:34) Medication List - Last Reconciled 12/03/24 by COLIN Lopez atorvastatin 20 mg PO DAILY 90 days [Bed grab bars As directed] calcium citrate-vitamin D3 315 mg-6.25 mcg (250 unit) (Citracal + Vitamin D Maximum) 1 tab PO DAILY cholecalciferol (vitamin D3) 1,250 mcg PO QWEEK clobetasol 0.05% 1 appl topical BID [CONTOUR Memory Foam Leg Pillow As directed] diclofenac sodium 1% (Voltaren Arthritis Pain) 2 grams topical QID PRN 30 days duloxetine 30 mg PO .qhs duloxetine (Cymbalta) 60 mg PO QAM gabapentin 400 mg PO BID [INCONTINENCE PADS 90 day supply Use 4 to 5 pads a day as directed] loratadine 10 mg PO DAILY PRN 90 days magnesium oxide 400 mg PO DAILY 90 days oxybutynin chloride ER 10 mg PO DAILY 30 days tizanidine 4 mg PO Q8H PRN HPI Comments Details: Niki is a very pleasant 59-year-old Cypriot-speaking female patient of Dr. Ty. She has a past medical history of obesity, vitamin-D deficiency, lumbar degenerative disc disease, osteoarthritis, hypercholesteremia, and fibromyalgia. She presents to the office today for follow-up of her lower urinary tract symptoms. In discussion with the patient today she continues to experience urinary urgency, urinary frequency, nocturia, as well as urge incontinence. Previous workup has included renal imaging 08/22 bilateral kidneys are normal in size and echotexture. No collecting system dilatation of either kidney. Normal color Doppler. Normal renal ultrasound per radiology report. Previously patient felt symptoms were not bothersome in wanted to continue with surveillance monitoring however feels symptoms have become more bothersome and does want to undergo further treatment options. We did discuss potential causes of these lower urinary tract symptoms as well as further treatment options and risks and benefits of these treatment options. In office urinalysis results reviewed with the patient today. PVR 0 mL. We discussed bladder triggers/ irritants. She denies hematuria, dysuria, foul smelling urine, changes to urinary stream, flank pain, fever, and or chills. All questions were answered. She otherwise offers no other issues or concerns at this time. [facility] Medical History Anemia Allergic rhinitis Urinary incontinence Obesity (BMI 30-39.9) Vitamin D deficiency Lumbar degenerative disc disease Osteoarthritis Pure hypercholesterolemia Fibromyalgia Surgical History Hx of varicose veins H/O LEEP History of tubal ligation Family History Father Medical history unknown Mother Stroke Diabetes Hypertension CVD (cardiovascular disease) Brother Substance abuse Maternal Uncle Throat cancer Social History Household Members: None Housing: Apartment Are you a primary zoo caretaker to a significant other at home: No Do you presently have visiting nurse or other home services: No 75 years or older and lives alone: No Alcohol intake: never Patient Tobacco Use Status: Never used Tobacco e-Cigarette/Vaping Use: Never Used Second Hand Smoke Exposure: No service: No Current occupational status: disabled Current occupational exposures/hazards: No Cognitive needs: No Hearing needs: No Vision needs: Yes (Glasses) Review of Systems Const All systems reviewed & are unremarkable except as noted in HPI and below Physical Exam Const General: cooperative, healthy appearing, comfortable, no acute distress, well developed, alert and awake Nutritional Appearance: overweight Orientation/consciousness: patient oriented x3 Limitations: no limitations HEENT Head: Yes normal to inspection, Yes normocephalic and Yes atraumatic Ears: hearing grossly normal bilaterally Eyes General: appearance normal, both eyes and all related structures Neck Neck: Yes normal visual inspection and Yes trachea midline Chest Chest palpation & inspection: normal inspection of the chest Resp Effort & Inspection: normal respiratory effort and able to speak in complete sentences Cardio Rate: regular rate GI Inspection: Yes normal to inspection General: Yes no CVA tenderness Back/Spine/Pelvis Back: no CVA tenderness Skin General skin exam: no rashes or lesions noted Neuro General: patient oriented x3 Extrem General: Yes normal to inspection Psych Appearance: grossly normal and well kempt Mental Status: mental status grossly normal Speech and movement: Normal speech and movement present and Clear speech present Affect: normal affect Attitude: cooperative Thought process: Normal thought process present Thought content: Normal thought content present Insight: Fair insight present (Psych) Judgement: Fair judgement present (Psych) Office Procedures Post Void Residual Post Residual Void Post Void Residual (PVR): 0 26775-Fbgl Void Residual by ultrasound Results AMB Urinalysis, Automated UA Leukoctes 0 Nuris/uL Last Edit by ACE Guy on 12/03/24 15:42 UA Nitrite Negative Last Edit by ACE Guy on 12/03/24 15:42 UA Urobilinogen 0.2 mg/dL Last Edit by ACE Guy on 12/03/24 15:4 2 UA Protein 15 mg/dL Last Edit by ACE Guy on 12/03/24 15:42 UA pH 6.0 Last Edit by ACE Guy on 12/03/24 15:42 UA Blood 10 Ramiro/uL Last Edit by Rakesh Tyler CCM on 12/03/24 15:42 UA Specific [place] 1.020 Last Edit by ACE Guy on 12/03/24 15: 42 UA Ketone Negative Last Edit by ACE Guy on 12/03/24 15:42 UA Bilirubin 0 mg/dL Last Edit by Rakesh Tyler CCM on 12/03/24 15:42 UA Glucose 0 mg/dL Last Edit by Rakesh Tyler [facility] on 12/03/24 15:42 Results Reviewed Results Reviewed: Laboratory Last Values Urine pH (Auto) 6.0 12/03/24 15:41 Specific [place] (Auto) 1.020 12/03/24 15:41 Urine Protein (Auto) 15 mg/dL 12/03/24 15:41 Glucose (UA)(Auto) 0 mg/dL 12/03/24 15:41 Urine Ketones (Auto) Negative 12/03/24 15:41 Urine Blood (Auto) 10 Ramiro/uL 12/03/24 15:41 Urine Nitrite (Auto) Negative 12/03/24 15:41 Urine Bilirubin (Auto) 0 mg/dL 12/03/24 15:41 Urine Urobilinogen (Auto) 0.2 mg/dL 12/03/24 15:41 Leukocyte Esterase (Auto) 0 Nuris/uL 12/03/24 15:41 Assessment & Plan Assessment & Plan (1) Stress incontinence: Code(s): N39.3 - Stress incontinence (female) (male) Category: Medical (2) Urinary urgency: Code(s): R39.15 - Urgency of urination Category: Medical (3) Urine frequency: Code(s): R35.0 - Frequency of micturition Category: Medical (4) Nocturia: Code(s): R35.1 - Nocturia Category: Medical Plan In office urinalysis results reviewed with the patient today; as noted above. PVR 0 mL. Recent renal imaging results reviewed with the patient today; as noted above. We discussed at length potential causes for lower urinary tract symptoms patient is experiencing as well as further treatment options and risks and benefits of these treatment options. Start oxybutynin as discussed and prescribed We discussed bladder triggers and irritants. We also discussed the importance of limiting fluids 2-3 hours prior to bed to decrease episodes of nocturia. We did discuss potential near future in office cystoscopy and or urodynamics for further assessment evaluation. Follow-up in 1-3 months with PVR; or sooner with any issues, concerns, and or questions. Orders: Orders AMB Urinalysis Automated Today Z13.9 - Encounter for screening, unspecified Urine Cytology Today R31.29 - Other microscopic hematuria Medications: New oxybutynin chloride ER 10 mg PO DAILY 30 tabs 3RF 30 days N32.81 - Overactive bladder Patient Instructions: The patient had an opportunity to ask questions regarding the treatment plan. All questions were answered. Physical exam, labs, and imaging were discussed and reviewed in detail. As well as risks, benefits, and discussion of treatment choices. No major barriers to understanding were identified. The patient expressed understanding and agreement with the above treatment plan. The patient was made aware they should contact our office by phone for worsening of their current condition, the appearance of new symptoms, or with any questions or concerns. Compliance is encouraged with any medications and follow up testing that is ordered. It is a privilege to be allowed the opportunity to participate in? your urological care.? Again, if you have any questions or concerns If you have any questions or concerns please do not hesitate to contact me. The office is [phone]. This note is constructed using voice recognition software. While every effort has been made to ensure accuracy forest pathology associate professor errors may have been included. Yours sincerely, MENA Lopez-MARCELL Coding Level of Care Code Est Pt Level 4 (50029) Diagnoses Stress incontinence N39.3 Urinary urgency R39.15 Urine frequency R35.0 Nocturia R35.1 CPT Codes Post Residual Void - PVR CPT Code: 31434-Ibrw Void Residual by ultrasound ([id number])
--- OUTSIDE RECORDS SUMMARY | 2024-12-03 16:05 | XMS_ITS | Clinical Summary ---
Author Organization [facility] [facility] [employer] Address [address] [facility] [address] [place] [address] Care Team Providers Care Manager Of Customer Billing Name Role Phone Unavailable Primary Care Provider [...] Description 01/15/2025 3:00 PM EST Office Visit [facility]ULT [facility]AL [address] [place] [address] Emmanuelle, Dulce Maria [address] [place] [address] Health Maintenance Due Date Last Done Comments [...] Relevant to Health Maintenance Insurance DENTAL [facility]
--- OUTSIDE RECORDS SUMMARY | 2024-12-03 16:05 | XMS_ITS | Encounter Summary ---
Author Organization [facility] Address [address] [facility] [address] [place] [address] Care Team Providers Care Parachute/Combatant Diver Officer Name Role Phone Unavailable Primary Care Provider Unavailabl e Encounter Details Date Type Department Care Team (Latest Contact Info) Description 03/27/2018 Abstract [facility] CONVERSIONS Dental, Provider, DDS Social History Tobacco [...] Description 01/15/2025 3:00 PM EST Office Visit [facility] ADULT DENTAL [address] [place] [address] Dulce Maria Handley [address] [place] [address] documented as of this encounter Visit Diagnoses Not on filedocumented in this encounter
--- OUTSIDE RECORDS SUMMARY | 2024-12-03 16:05 | XMS_ITS | Clinical Summary ---
Author Organization [facility] Address [address] [place] [address] Care Team Providers Care Patcher Bowling Ball Name Role Phone Charlie Ty MD Primary Care Provider [phone] Family History Medical History Relation Name Comments [...] age to complete this topic Care Teams Patcher Bowling Ball Relationship Specialty Start Date End Date Charlie Ty MD [address] [place] [address] Dr [address] [place] PCP - General Internal Medicine 01/07/16
--- OUTSIDE RECORDS SUMMARY | 2024-12-03 16:05 | XMS_ITS | Encounter Summary ---
Author Organization [employer] [facility] Address [address] [facility] [address] [place] [address] Care Team Providers Care Consulting Application Engineer Name Role Phone Unavailable Primary Care Provider Unavailabl e Encounter Details Date Type Department Care Team (Latest Contact Info) Description 03/05/2021 Abstract [facility] CONVERSIONS Dental, Provider, DDS Social History [...] Description 01/15/2025 3:00 PM EST Office Visit [facility] ADULT DENTAL [address] [place] [address] Hugh Handleyaris [address] [place] [address] documented as of this encounter Visit Diagnoses Not on filedocumented in this encounter
== END 2024-12-03 14:33 | disposition home or self-care (01) ==
LOC: HO.HUSH 13:42
PROVIDERS: PCP Internal Medicine; Visit Provider Nurse Practitioner Family
DX: N39.3 Stress incontinence (female) (male) (principal); R39.15 Urgency of urination; R35.0 Frequency of micturition; R35.1 Nocturia; Z13.9 Encounter for screening, unspecified
CPT/HCPCS: 99214

== ENCOUNTER 2024-12-25 12:29 | Outpatient (REF) | payer OTHER, SELFPAY ==
--- OUTSIDE RECORDS SUMMARY | 2024-12-25 15:44 | XMS_ITS | Clinical Summary ---
Author Organization [employer] Address [address] [facility] [address] [place] [address] Care Team Providers Care Bottle Blowing Machine Tender Name Role Phone Unavailable Primary Care Provider [...] Description 01/15/2025 3:00 PM EST Office Visit [facility] ADULT DENTAL [address] [place] [address] Emmanuelle, Dulce Maria [address] [place] [address] Health Maintenance Due Date Last Done Comments [...] Recently Relevant to Health Maintenance Insurance DENTAL [facility]
--- OUTSIDE RECORDS SUMMARY | 2024-12-25 15:44 | XMS_ITS | Encounter Summary ---
Author Organization [employer] [facility] Address [address] [facility] [address] [place] [address] Care Team Providers Care Saw Boss Name Role Phone Unavailable Primary Care Provider Unavailabl e Encounter Details Date Type Department Care Team (Latest Contact Info) Description 03/05/2021 Abstract [facility] CONVERSIONS Dental, Provider, DDS Social History [...] Description 01/15/2025 3:00 PM EST Office Visit [facility] ADULT DENTAL [address] [place] [address] Hugh Handleyaris [address] [place] [address] documented as of this encounter Visit Diagnoses Not on filedocumented in this encounter
--- OUTSIDE RECORDS SUMMARY | 2024-12-25 15:44 | XMS_ITS | Clinical Summary ---
Author Organization [facility] Address [address] [place] [address] Care Team Providers Care Early Head Start Teacher Name Role Phone Charlie Ty MD Primary Care Provider [phone] Family History Medical History Relation Name Comments [...] age to complete this topic Care Teams Early Head Start Teacher Relationship Specialty Start Date End Date Charlie Ty MD [address] [place] [address] [address] [place] PCP - General Internal Medicine 01/07/16
--- OUTSIDE RECORDS SUMMARY | 2024-12-25 15:44 | XMS_ITS | Encounter Summary ---
Author Organization [facility] [facility] Address [address] [facility] [address] [place] [address] Care Team Providers Care Cardiac Rehabilitation Program Director Name Role Phone Unavailable Primary Care Provider Unavailabl e Encounter Details Date Type Department Care Team (Latest Contact Info) Description 03/27/2018 Abstract [facility] CONVERSIONS Dental, Provider, [...] Visit [facility] ADULT DENTAL [address] [place] [address] Dulce Maria Handley [address] [place] [address] documented as of this encounter Visit Diagnoses Not on filedocumented in this encounter
== END 2024-12-25 12:30 | disposition home or self-care (01) ==
LOC: HO.MAMMO 12:29
PROVIDERS: PCP Internal Medicine; Visit Provider Internal Medicine
DX: Z12.31 Encounter for screening mammogram for malignant neoplasm of breast (principal)
CPT/HCPCS: 77063; 77067

== ENCOUNTER → 2024-12-25 12:45 | Outpatient (BNV) | payer OTHER, SELFPAY | PROVIDERS: PCP Internal Medicine; Visit Provider Internal Medicine | DX: Z12.31 Encounter for screening mammogram for malignant neoplasm of breast (principal) | CPT/HCPCS: 77063; 77067 ==